=== PATIENT | female | born 1955 | race African-American/Black ===

== ENCOUNTER 2017-02-11 12:11 | Day surgery (SDC) | payer OTHER ==
[2017-02-10 16:34] VITALS: BMI 27.5
[~2017-02-11 12:11] MED LIST: BETAMET ACET/BETAMET NA PH 30 MG/5 ML VIAL IJ ONE; BUPIVACAINE HCL/PF 0.25% (2.5MG/ML) 10 ML VIAL IJ ONE; IOHEXOL 180 MG/1 ML ML IJ ONE; LIDOCAINE HCL 1%, 10 MG/ML (20ML VIAL) IJ ONE
[2017-02-11 13:49] VITALS: TEMP 98.2
[2017-02-11] MEDS ORDERED: BETAMET ACET/BETAMET NA PH 30 MG/5 ML VIAL ONE (15:59)
[2017-02-11] MEDS ORDERED: LIDOCAINE HCL 1%, 10 MG/ML (20ML VIAL) ONE (15:59)
[2017-02-11] MEDS ORDERED: BUPIVACAINE HCL/PF 0.25% (2.5MG/ML) 10 ML VIAL ONE (15:59)
[2017-02-11] MEDS ORDERED: LIDOCAINE HCL 1%, 10 MG/ML (20ML VIAL) IJ ONE (16:20)
[2017-02-11] MEDS ORDERED: IOHEXOL 180 MG/1 ML ML IJ ONE (16:22)
[2017-02-11] MEDS ORDERED: BETAMET ACET/BETAMET NA PH 30 MG/5 ML VIAL IJ ONE (16:23)
[2017-02-11] MEDS ORDERED: BUPIVACAINE HCL/PF 0.25% (2.5MG/ML) 10 ML VIAL IJ ONE (16:23)
[2017-02-11] MEDS ORDERED: ACETAMINOPHEN 500 MG TABLET (FP) PO PRN (16:35)
[2017-02-11] MEDS ORDERED: ONDANSETRON 4 MG/2 ML VIAL IVPUSH PRN (16:35)
[2017-02-11] MEDS ORDERED: SODIUM CHLORIDE 1,000 ML IV SCH (16:45)
[2017-02-11 19:55] VITALS: BP 146/81; PULSE 63
--- NOTE | 2017-02-12 06:47 | OP ---
DATE OF OPERATION: 02/11/2017 PERFORMING PHYSICIAN: Rocco Wong MD PREOPERATIVE DIAGNOSIS: Low back pain with lumbar radiculopathy on the left side. POSTOPERATIVE DIAGNOSIS: Low back pain with lumbar radiculopathy on the left side. PROCEDURE: Lumbar epidural steroid injection, interlaminar at the L4-L5 level. ANESTHESIA: Local and MAC ANESTHESIOLOGIST: Dr. Ortiz DESCRIPTION OF PROCEDURE: I discussed with her in detail about risks, benefits, and alternative details, not only limited to infection, fever, headache, numbness, tingling, weakness, injury to nerves, blood vessels, and muscles. Patient understood, agreed, and signed the written consent. The patient was placed in the prone position with the abdomen and legs supported with pillows. The lumbosacral area was prepped and draped with Betadine x3 and alcohol x3. Under fluoroscopy, left L4-L5 area was identified. At this level, 3 mL of 1% lidocaine was infiltrated into the skin and subcutaneous tissues. A 20-gauge 3.5-inch Tuohy needle was used to expose the epidural space by a loss of resistance technique with intermittent fluoroscopy. After negative aspiration, 2 mL of Omnipaque 180 was injected to see the flow of the dye into the epidural space both cranially and caudally. There was no vascular uptake or spinal CSF spread. Celestone 2 mL mixed with 3 mL of 0.25% preservative-free Marcaine mL was injected into the epidural space after negative aspiration. While needle was withdrawn, 1% of lidocaine was infiltrated. Bleeding was checked. Betadine was wiped off. A sterile bandage was placed. Patient tolerated the procedure well. There was no immediate complication. Patient was transferred to recovery room and observed for some time. Patient was discharged. Patient was advised to apply ice. If any problem, call me or report to ER. Patient was discharged as per criteria. Patient was given the followup appointment. ROCCO WONG M.D. JUNIOR/[id number]
== END 2017-02-11 17:30 | disposition home or self-care (01) ==
LOC: JASU-SURG 12:11
PROVIDERS: ATTEND Physical Medicine & Rehabilitation
PROC: 3E0S33Z Introduction of Anti-inflammatory into Epidural Space, Percutaneous Approach (ICD-10-PCS; 2017-02-11)
PROC: B01BYZZ Fluoroscopy of Spinal Cord using Other Contrast (ICD-10-PCS; 2017-02-11)
PROC: 3E0S3BZ Introduction of Anesthetic Agent into Epidural Space, Percutaneous Approach (ICD-10-PCS; principal; 2017-02-11 15:00)
DX: M54.16 Radiculopathy, lumbar region (principal); M54.5 Low back pain
CPT/HCPCS: 76000-TC

== ENCOUNTER 2017-04-22 12:40 | Emergency (ER) | payer OTHER ==
[2017-04-22 13:01] VITALS: TEMP 98.2; BMI 28.1
--- NOTE | 2017-04-22 17:29 | PDOC ---
History of Present Illness - General History Source: Patient Exam Limitations: No Limitations - History of Present Illness Initial Comments: 04/22/17 17:48 The patient is a 60-year-old woman with significant past medical history of diabetes mellitus, hypertension anemia and hepatitis C who presents to the emergency department s/p mechanical fall yesterday. Patient states that she was bending down to retrieve something on an incline tumbled and tripped over falling on her knees and then elbows. She states that she hit the back of her head on the car. She denies any LOC, dizziness or lightheadedness. She now reports bilateral knee pain and swelling as well as bilateral elbow pain left worse than the right. She denies , headache,dizziness, lightheadedness, fever, chills, back pain. Allergies: None Known Past Surgical History: L2-L3 surgery. Hernia repair. Social History: Former smoker. She denies ETOH and recreational drug use. Primary Care Physician: Dr. 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) Disorders: No HTN: Yes Hypercholesterolemia: No Liver Disease: Yes (hep c, HEP C CLEARED) Suicide Attempt (Hx): No Seizures: No Thyroid Disease: No - Surgical History Abdominal Surgery: Yes (HERNIA REPAIR) Appendectomy: No Cardiac Surgery: No Cholecystectomy: No Lung Surgery: No Neurologic Surgery: Yes (disc sx ?fusion) Orthopedic Surgery: No - Psycho/Social/Smoking Cessation Hx Anxiety: No Suicidal Ideation: No Smoking Status: Yes Smoking History: Never smoked Have you smoked in the past 12 months: No Number of Cigarettes Smoked Daily: 0 If you are a former smoker, when did you quit?: 40 YRS AGO Hx Alcohol Use: No Drug/Substance Use Hx: No Substance Use Type: None Hx Substance Use Treatment: No <DarrinMaribelrosa Anderson - Last Filed: 04/22/17 19:00> - Past Medical History Allergies/Adverse Reactions: Allergies Allergy/AdvReac Type Severity Reaction Status Date / Time codeine AdvReac Verified 04/22/17 13:01 Home Medications: Ambulatory Orders Metformin HCl [Glucophage Xr] 500 mg PO DAILY 10/07/11 Losartan/Hydrochlorothiazide [Losartan-Hctz 100-25 mg Tab] 1 tab PO DAILY Pantoprazole Sodium [Protonix] 40 mg PO DAILY #30 tablet. 05/08/16 Naproxen Sodium [Aleve] 220 mg PO PRN 02/10/17 Review of Systems - Review of Systems Able to Perform ROS?: Yes Comments:: 04/22/17 17:48 CONSTITUTIONAL: Absent: fever, chills, diaphoresis, generalized weakness, malaise, loss of appetite HEENT: Absent: rhinorrhea, nasal congestion, throat pain, throat swelling, difficulty swallowing, mouth swelling, ear pain, eye pain, visual Changes CARDIOVASCULAR: Absent: chest pain, syncope, palpitations, irregular heart rate, lightheadedness , peripheral edema RESPIRATORY: Absent: cough, shortness of breath, dyspnea with exertion, orthopnea, wheezing, stridor, hemoptysis GASTROINTESTINAL: Absent: abdominal pain, abdominal distension, nausea, vomiting, diarrhea, constipation, melena, hematochezia GENITOURINARY: Absent: dysuria, frequency, urgency, hesitancy, hematuria, flank pain, genital pain MUSCULOSKELETAL: Present: bilateral knee pain, bilateral elbow pain, back of the head pain. Absent: myalgia, arthralgia, joint swelling SKIN: Present: abrasion to right knee. Absent: rash, itching, pallor HEMATOLOGIC/IMMUNOLOGIC: Absent: easy bleeding, easy bruising, lymphadenopathy, frequent infections ENDOCRINE: Absent: unexplained weight gain, unexplained weight loss, heat intolerance, cold intolerance NEUROLOGIC: Absent: headache, focal weakness or paresthesias, dizziness, unsteady gait, seizure, mental status changes, bladder or bowel incontinence PSYCHIATRIC: Absent: anxiety, depression, suicidal or homicidal ideation, hallucinations. <Yesenia Black - Last Filed: 04/22/17 17:48> *Physical Exam - Vital Signs Last Vital Signs Temp Pulse Resp BP Pulse Ox 98.2 F 81 18 153/82 98 04/22/17 12:59 04/22/17 12:59 04/22/17 12:59 04/22/17 12:59 04/22/17 12:59 - Physical Exam Comments: 04/22/17 17:51 GENERAL: Well developed, well nourished. Awake and alert. No acute distress. HEENT: (+)Tenderness on occiput with small hematoma. Normocephalic. PERRLA, EOMI. No conjunctival pallor. Sclera are non-icteric. Moist mucous membranes. Oropharynx is clear. NECK: Supple. Full ROM. No JVD. Carotid pulses 2+ and symmetric, without bruits. No thyromegaly. No lymphadenopathy. CARDIOVASCULAR: Regular rate and rhythm. No murmurs, rubs, or gallops. Distal pulses are 2+ and symmetric. PULMONARY: No evidence of respiratory distress. Lungs clear to auscultation bilaterally. No wheezing, rales or rhonchi. ABDOMINAL: Soft. Non-tender. Non-distended. No rebound or guarding. No organomegaly. Normoactive bowel sounds. MUSCULOSKELETAL (+)Generalized paraspinal tenderness, No C spine tenderness. Normal range of motion at all joints. No bony deformities. No CVA tenderness. EXTREMITIES: (+)Tenderness to right and left elbow, Left elbow superficial abrasion, Patellar ballottement and swelling Right knee abrasion 2.5cm. No cyanosis. No clubbing. No calf tenderness. SKIN: Warm and dry. Normal capillary refill. No rashes. No jaundice. NEUROLOGICAL: Alert, awake, appropriate. Cranial nerves 2-12 intact. PSYCHIATRIC: Cooperative. Good eye contact. Appropriate mood and affect. <Yesenia Black - Last Filed: 04/22/17 17:48> - Vital Signs Last Vital Signs Temp Pulse Resp BP Pulse Ox 98.2 F 81 18 153/82 98 04/22/17 12:59 04/22/17 12:59 04/22/17 12:59 04/22/17 12:59 04/22/17 12:59 <Maribel Clifford - Last Filed: 04/22/17 19:00> *DC/Admit/Observation/Transfer - Attestations Scribe Attestion: 04/22/17 17:54 Documentation prepared by KARLIE Roy, acting as paramedical aide for Maribel Clifford MD. <Yesenia Black - Last Filed: 04/22/17 17:48> <Maribel Clifford - Last Filed: 04/22/17 19:00> Diagnosis at time of Disposition: Closed head injury Qualifiers: Encounter type: initial encounter Qualified Code(s): S09.90XA - Unspecified injury of head, initial encounter Abrasion of elbow Qualifiers: Encounter type: initial encounter Laterality: left Qualified Code(s): S50.312A - Abrasion of left elbow, initial encounter Abrasion of knee Qualifiers: Encounter type: initial encounter Laterality: right Qualified Code(s): S80.211A - Abrasion, right knee, initial encounter - Discharge Dispostion Disposition: HOME Condition at time of disposition: Stable - Referrals Referrals: Sy Gabriel MD [Primary Care Provider] - - Patient Instructions Printed Discharge Instructions: DI for Closed Head Injury Additional Instructions: please place bacitracin on your abrasions take aleve or tylenol for pain
[2017-04-22] MEDS ORDERED: NAPROXEN 500 MG TABLET (FP) ONE (18:49)
[2017-04-22 22:00] VITALS: BP 140/80; PULSE 76
== END 2017-04-22 19:10 | disposition home or self-care (01) ==
LOC: JER 12:40
DX: M25.529 Pain in unspecified elbow (principal); S09.90XA Unspecified injury of head, initial encounter; S50.312A Abrasion of left elbow, initial encounter; S80.211A Abrasion, right knee, initial encounter; W18.39XA Other fall on same level, initial encounter; Y93.89 Activity, other specified; Y92.9 Unspecified place or not applicable; I10 Essential (primary) hypertension; B19.20 Unspecified viral hepatitis C without hepatic coma; E11.9 Type 2 diabetes mellitus without complications
CPT/HCPCS: 70450-TC; 72125-TC; 73070-TC-LT; 73562-TC-LT; 73562-TC-RT; 99282-25

== ENCOUNTER 2017-04-26 15:09 | Emergency (ER) | payer OTHER ==
[2017-04-26 15:21] VITALS: BP 141/77; PULSE 78; TEMP 99; BMI 27.4
--- NOTE | 2017-04-26 15:41 | PDOC ---
History of Present Illness - General Chief Complaint: Injury Stated Complaint: FALL / PAIN Time Seen by Provider: 04/26/17 15:40 History Source: Patient Exam Limitations: No Limitations - History of Present Illness Initial Comments: 04/26/17 19:36 Patient came for evaluation of persistent aches and pains. what became unstable on Friday night, fell and was seen and treated here for multiple contusions with negative x-ray reports on Friday afternoon. Patient was offered Percocet but refused as she did not want any stronger pain medication. States has been using Aleve but has continued pain and concerned about bruising extending down from her knees to ankles. Patient denies any recurrent headache, dizziness, instability but is tearful with complaints of multiple generalized aches and pains. "Why are my veins be and so dark" 04/26/17 19:41 04/26/17 19:41 Occurred: reports: last week Severity: reports: mild, moderate Pain Location: reports: lower extremity, upper extremity (left elbow) Modifying Factors: improves with: cold therapy, pain medication (aleve) Loss of Consciousness: no loss of consciousness Associated Symptoms (Fall): muscle spasms, neck pain, trouble walking Past History - Travel Traveled outside of the country in the last 30 days: No Close contact w/someone who was outside of country & ill: No - Past Medical History Allergies/Adverse Reactions: Allergies Allergy/AdvReac Type Severity Reaction Status Date / Time codeine AdvReac Nausea Verified 04/26/17 15:16 Home Medications: Ambulatory Orders Metformin HCl [Glucophage Xr] 500 mg PO BID 10/07/11 Losartan/Hydrochlorothiazide [Losartan-Hctz 100-25 mg Tab] 1 tab PO DAILY Pantoprazole Sodium [Protonix] 40 mg PO DAILY #30 tablet. 05/08/16 Naproxen [Naprosyn -] 500 mg PO BID #14 tablet 04/26/17 Anemia: Yes Asthma: No Cancer: No Cardiac Disorders: No CVA: No COPD: No CHF: No Dementia: No Diabetes: Yes GI Disorders: (enlarged spleen) Disorders: No HTN: Yes Hypercholesterolemia: No Liver Disease: Yes (hep c, HEP C CLEARED) Suicide Attempt (Hx): No Seizures: No Thyroid Disease: No - Surgical History Abdominal Surgery: Yes (HERNIA REPAIR) Appendectomy: No Cardiac Surgery: No Cholecystectomy: No Lung Surgery: No Neurologic Surgery: Yes (disc sx ?fusion) Orthopedic Surgery: No - Psycho/Social/Smoking Cessation Hx Anxiety: No Suicidal Ideation: No Smoking Status: Yes Smoking History: Former smoker Have you smoked in the past 12 months: No Number of Cigarettes Smoked Daily: 0 If you are a former smoker, when did you quit?: 40 YRS AGO Information on smoking cessation initiated: No Hx Alcohol Use: No Drug/Substance Use Hx: No Substance Use Type: None Hx Substance Use Treatment: No Review of Systems - Review of Systems Able to Perform ROS?: Yes Is the patient limited Sudanese proficient: Yes Constitutional: Yes: Symptoms Reported, See HPI, Malaise HEENTM: Yes: See HPI. No: Symptoms Reported Respiratory: Yes: See HPI. No: Symptoms reported ABD/GI: No: Symptoms Reported Musculoskeletal: Yes: Symptoms Reported, See HPI, Joint Pain, Joint Swelling ( bilateral knees) Integumentary: Yes: Symptoms Reported, See HPI, Bruising, Lesions Neurological: Yes: See HPI. No: Symptoms reported, Headache, Numbness All Other Systems: Reviewed and Negative *Physical Exam - Vital Signs Last Vital Signs Temp Pulse Resp BP Pulse Ox 99 F 78 18 141/77 98 04/26/17 15:16 04/26/17 15:16 04/26/17 15:16 04/26/17 15:16 04/26/17 15:16 - Physical Exam General Appearance: Yes: Nourished, Appropriately Dressed, Apparent Distress HEENT: positive: NOHEMI, Normal ENT Inspection, TMs Normal, Pharynx Normal Neck: positive: Supple. negative: Tender Respiratory/Chest: positive: Lungs Clear Cardiovascular: positive: Regular Rhythm Musculoskeletal: positive: Normal Inspection. negative: Vertebral Tenderness Integumentary: positive: Warm, Swelling, Ecchymosis, Bruising (bilateral swelling and ecchymoses to knees, no crepitus or step-offs, but pain extends inferiorly with some bruising consistent with gravity. Left elbow with superficial abrasion is healing well with mild ecchymoses and swelling at the olecranon. Has full range of motion at elbow joint, able to supinate and pronate without tenderness. No evidence of cellulitis. With healing abrasion without evidence of cellulitis, range of motion is intact but has pain and superior tibial area without crepitus or step-offs. 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 No evidence of reinjury, encourage patient to continue ice, rest and sent prescription for Naprosyn 500 mg and will follow up with PMD *DC/Admit/Observation/Transfer Diagnosis at time of Disposition: Multiple contusions - Discharge Dispostion Disposition: HOME Condition at time of disposition: Stable Admit: No - Prescriptions Prescriptions: Naproxen [Naprosyn -] 500 mg PO BID #14 tablet - Referrals Referrals: Sy Gabriel MD [Primary Care Provider] - - Patient Instructions Printed Discharge Instructions: DI for Contusion Additional Instructions: Rest, ice to area on and off for 15 minutes 4-6 times a day Avoid heavy lifting or exercise until pain and swelling is resolved or until further directed Keep area highly elevated to reduce swelling Use splints/Ilan wrap as directed Followup with orthopedist in one to 2 days if not improving, if significantly improved may wait one week for followup with orthopedist May use ibuprofen 2-200 mg tablets every 6 hours as needed for pain
[2017-04-26] MEDS ORDERED: KETOROLAC TROMETHAMINE 60 MG/2 ML VIAL ONE (15:54)
[2017-04-26] MEDS ORDERED: NAPROXEN 500 MG TABLET (FP) PO ONE (16:04)
[2017-04-26] MEDS ORDERED: BACITRACIN 15 GM TUBE TOPICAL OINTMENT ONE (16:10)
== END 2017-04-26 16:25 | disposition home or self-care (01) ==
LOC: JERFT 15:09
DX: S80.02XD Contusion of left knee, subsequent encounter (principal); S80.01XD Contusion of right knee, subsequent encounter; S50.02XD Contusion of left elbow, subsequent encounter; W18.39XD Other fall on same level, subsequent encounter; I10 Essential (primary) hypertension; E11.9 Type 2 diabetes mellitus without complications; Z79.84 Long term (current) use of oral hypoglycemic drugs; B19.20 Unspecified viral hepatitis C without hepatic coma; R16.1 Splenomegaly, not elsewhere classified; Z87.891 Personal history of nicotine dependence
CPT/HCPCS: 99281-25

== ENCOUNTER 2017-09-20 10:25 | Emergency (ER) | payer OTHER ==
[2017-09-20 10:35] VITALS: BP 117/75; PULSE 82; TEMP 99.1; BMI 28.7
[2017-09-20] MEDS ORDERED: ALBUTEROL SO4 2.5/IPRATROPIUM 0.5 INH SOL 3 ML VIAL.NEB. NEB ONE (11:06)
--- NOTE | 2017-09-20 11:23 | PDOC ---
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 Patient was seen at her pain management doctor 4 days ago patient reports had a "terrible cold" woke up the next day with similar symptoms. Allergies: No known allergies Medications: [See medication list] Family History: Non-contributory Social History: Denies smoking, alcohol use, or IVDU Review of Systems GENERAL/CONSTITUTIONAL: [Fever and chills. Generalized aches and pains. No weakness. No weight change.] HEAD, EYES, EARS, NOSE AND THROAT: [No change in vision. No ear pain or discharge. No sore throat. ] CARDIOVASCULAR: [No chest pain or shortness of breath.] RESPIRATORY: [No cough, wheezing, or hemoptysis.] GASTROINTESTINAL: [No nausea, vomiting, diarrhea or constipation. No rectal bleeding.] GENITOURINARY: [No dysuria, frequency, or change in urination.] MUSCULOSKELETAL: [No joint or muscle swelling or pain. No neck or back pain.] SKIN AND BREASTS: [No rash or easy bruising.] NEUROLOGIC: [No headache, vertigo, loss of consciousness, or loss of sensation.] PSYCHIATRIC: [No depression or anxiety.] ENDOCRINE: [No increased thirst. No abnormal weight change.] HEMATOLOGIC/LYMPHATIC: [No anemia, easy bleeding, or history of blood clots.] ALLERGIC/IMMUNOLOGIC: [No hives or skin allergy. No latex allergy.] Physical Exam: GENERAL: [The patient is awake, alert, and fully oriented, in no acute distress. ] EYES: [Pupils equal, round and reactive to light, extraocular movements intact, sclera anicteric, conjunctiva clear.] ENT: [Ears normal, nares patent, oropharynx clear without exudates. Moist mucous membranes. No uvula deviation] NECK: [Normal range of motion, supple without lymphadenopathy, JVD, or masses.] LUNGS: [Expiratory rhonchi and wheezes, no crackles.] HEART: [Regular rate and rhythm, normal S1 and S2 without murmur, rub or gallop. ] ABDOMEN: [Soft, nontender, normoactive bowel sounds. No guarding, no rebound. No masses. No bruising or abrasions] MUSCULOSKELETAL: [Normal range of motion, no edema. No clubbing or cyanosis. No cords, erythema, or tenderness. No CVA Tenderness with fist.] NEUROLOGICAL: [Cranial nerves II through XII grossly intact. Normal speech, normal gait.] SKIN: [Warm, Dry, normal turgor, no rashes or lesions noted.] 09/20/17 13:31 Past History - Past Medical History Allergies/Adverse Reactions: Allergies Allergy/AdvReac Type Severity Reaction Status Date / Time codeine AdvReac Nausea Verified 09/20/17 10:27 Home Medications: Ambulatory Orders Metformin HCl [Glucophage Xr] 500 mg PO BID 10/07/11 Losartan/Hydrochlorothiazide [Losartan-Hctz 100-25 mg Tab] 1 tab PO DAILY Azithromycin [Zithromax 250mg Tablets -] 250 mg PO UTDICT #6 tab 09/20/17 Oseltamivir Phosphate [Tamiflu -] 75 mg PO BID #10 capsule 09/20/17 Anemia: Yes Asthma: No Cancer: No Cardiac Disorders: No CVA: No COPD: No CHF: No DVT: No Dementia: No Diabetes: Yes GI Disorders: (enlarged spleen) Disorders: No HTN: Yes Hypercholesterolemia: No Liver Disease: Yes (hep c, HEP C CLEARED) Seizures: No Thyroid Disease: No - Surgical History Abdominal Surgery: Yes (HERNIA REPAIR) Appendectomy: No Cardiac Surgery: No Cholecystectomy: No Lung Surgery: No Neurologic Surgery: Yes (disc sx ?fusion) Orthopedic Surgery: No - Immunization History Immunization Up to Date: Yes - Suicide/Smoking/Psychosocial Hx Smoking Status: Yes Smoking History: Never smoked Have you smoked in the past 12 months: No Number of Cigarettes Smoked Daily: 0 If you are a former smoker, when did you quit?: 40 YRS AGO Information on smoking cessation initiated: No Hx Alcohol Use: No Drug/Substance Use Hx: No Substance Use Type: None Hx Substance Use Treatment: No *Physical Exam - Vital Signs Last Vital Signs Temp Pulse Resp BP Pulse Ox 99.1 F 82 17 117/75 100 09/20/17 10:27 09/20/17 10:27 09/20/17 10:27 09/20/17 10:27 09/20/17 10:27 ED Treatment Course - Medications Given in the ED: ED Medications Discontinued Medications Generic Name Dose Route Start Last Admin Trade Name Andrew PRN Reason Stop Dose Admin Albuterol/Ipratropium 1 amp 09/20/17 11:06 09/20/17 11:16 Duoneb - NEB 09/20/17 11:07 1 amp ONCE ONE Administration Medical Decision Making - Medical Decision Making 09/20/17 11:23 A/P: She here with generalized aches and pains fever, sore throat, cough which is productive. Influenza and rapid strep sent Combivent given. 09/20/17 13:32 Patient is nontoxic appearing, no respiratory distress, s/p neb, the patient is sating 98%on room air. Patient is influenza A positive we'll discharge patient on Tamiflu and azithromycin, follow-up with PMD. I discussed the physical exam findings, ancillary test results and final diagnoses with the patient. I answered all of the patient's questions. The patient was satisfied with the care received and felt comfortable with the discharge plan and treatment plan. The patient will call to arrange follow-up and will return to the Emergency Department with any new, persistent or worsening symptoms. *DC/Admit/Observation/Transfer Diagnosis at time of Disposition: Influenza A - Discharge Dispostion Disposition: HOME Condition at time of disposition: Good Admit: No - Prescriptions Prescriptions: Azithromycin [Zithromax 250mg Tablets -] 250 mg PO UTDICT #6 tab Oseltamivir Phosphate [Tamiflu -] 75 mg PO BID #10 capsule - Referrals Referrals: Sy Gabriel MD [Primary Care Provider] - - Patient Instructions Printed Discharge Instructions: Influenza (Alternative Therapy), Influenza Additional Instructions: You have been diagnosed with influenza a. Please take the medication as directed. You are contagious. Please attempt to avoid contact of multiple individuals as this will cause the infection to spread. Return to emergency room if shortness of breath, wheezing, fever greater than 101, chest pain, or fainting occurs. - Post Discharge Activity Forms/Work/School Notes: Back to Work
== END 2017-09-20 12:37 | disposition home or self-care (01) ==
LOC: JER 10:25 → JERFT 10:25
PROC: 3E0F7GC Introduction of Other Therapeutic Substance into Respiratory Tract, Via Natural or Artificial Opening (ICD-10-PCS; principal; 2017-09-20)
DX: J09.X2 Influenza due to identified novel influenza A virus with other respiratory manifestations (principal); I10 Essential (primary) hypertension; E11.9 Type 2 diabetes mellitus without complications; Z79.84 Long term (current) use of oral hypoglycemic drugs; R16.1 Splenomegaly, not elsewhere classified; Z86.19 Personal history of other infectious and parasitic diseases
CPT/HCPCS: 87070; 87430; 87804; 99281-25

== ENCOUNTER 2017-10-07 08:37 | Day surgery (SDC) | payer OTHER ==
[2017-10-06 17:05] VITALS: BMI 27.5
[2017-10-07 08:55] VITALS: TEMP 98.1
[2017-10-07] MEDS ORDERED: PROPOFOL 20 ML ONE (11:30)
[2017-10-07] MEDS ORDERED: ceFAZolin SODIUM 1 GM VIAL IVPB ONE (11:33)
[2017-10-07] MEDS ORDERED: ceFAZolin SODIUM 1 GM VIAL ONE (11:33)
[2017-10-07] MEDS ORDERED: LIDOCAINE HCL 1%, 10 MG/ML (20ML VIAL) NR ONE (11:37)
[2017-10-07] MEDS ORDERED: BUPIVACAINE HCL/PF 0.25% (2.5MG/ML) 10 ML VIAL IJ ONE (11:39)
[2017-10-07] MEDS ORDERED: IOHEXOL 180 MG/1 ML ML IJ ONE (11:39)
[2017-10-07] MEDS ORDERED: BUPIVACAINE HCL/PF 0.5% (5MG/ML) 10 ML VIAL IJ ONE (11:39)
[2017-10-07] MEDS ORDERED: BETAMET ACET/BETAMET NA PH 30 MG/5 ML VIAL IM ONE (11:41)
--- NOTE | 2017-10-07 13:22 | PROC ---
Procedure Note Procedure: Date of service: 10/07/2017 Preoperative Diagnosis: Low back pain and lumbar radiculopathy on left Postoperative Diagnosis: Same Procedure Performed: Lumbar Epidural Steroid Injection (LESI) on Left L4-5 with dye under Fluoroscopy Anesthesia: Local / MAC Anesthesiologist: Procedure: I discussed with the patient in detail about the risks, benefits, and alternatives to treatment not only limited to infection, headache, numbness , weakness, and injury to nerves, blood vessels and muscles. The patient understood, agreed and signed the written consent. The patient was placed in the prone position with the head, abdomen and legs supported with the pillows. The lumbosacral area was prepped and draped with Betadine times three in a sterile fashion. Lumbar vertebrae were identified under the C-arm. At L4-5 level on the Left side, 3 ml of 1 % Lidocaine was infiltrated into the skin and subcutaneous tissue. A 3 inch, #20 gauge Tuohy needle was advanced to the epidural space with loss of resistance technique under fluoroscopic guidance. Aspiration was negative for cerebrospinal fluid and blood. 2ml of Omnipaque ( radio-opaque dye) was injected to confirm the tip of the needle into epidural space and spread of dye. There was no CSF or vascular spread. The spread of dye was noted cranially and caudally on epidurogram. Aspiration was done again which was negative. A solution of 2.5 ml of Celestone 2.5 ml of 0.25% Marcaine and a total of 5 ml was injected slowly. While Tuohy needle was withdrawn 2.0 ml of 1 % Lidocaine was infiltrated. Bleeding was checked. Betadine was wiped off. A sterile bandage was placed. The patient tolerated the procedure well. There were no immediate complications. The patient was transferred to the recovery room. The patient was observed for some time and discharged as per ASU criteria. The patient was told to apply ice at the injection site. Follow up appointment was given and also call my office at [phone]. If there is any problem, call my office or report to Emergency Room. Elliott Wong M.D.
[2017-10-07 14:17] VITALS: BP 139/69; PULSE 60
[2017-10-07] MEDS ORDERED: LIDOCAINE HCL 1%, 10 MG/ML (20ML VIAL) ONE (14:23)
[2017-10-07] MEDS ORDERED: BUPIVACAINE HCL/PF 0.25% (2.5MG/ML) 10 ML VIAL ONE (14:23)
[2017-10-07] MEDS ORDERED: BETAMET ACET/BETAMET NA PH 30 MG/5 ML VIAL ONE (14:23)
== END 2017-10-07 14:35 | disposition home or self-care (01) ==
LOC: JASU-SURG 08:37
PROVIDERS: ATTEND Physical Medicine & Rehabilitation
PROC: 3E0R33Z Introduction of Anti-inflammatory into Spinal Canal, Percutaneous Approach (ICD-10-PCS; 2017-10-07)
PROC: B01BYZZ Fluoroscopy of Spinal Cord using Other Contrast (ICD-10-PCS; 2017-10-07)
PROC: 3E0R3BZ Introduction of Anesthetic Agent into Spinal Canal, Percutaneous Approach (ICD-10-PCS; principal; 2017-10-07 11:00)
DX: M54.16 Radiculopathy, lumbar region (principal); M54.5 Low back pain
CPT/HCPCS: 76000-TC-FY; 82962

== ENCOUNTER 2017-11-25 08:12 | Day surgery (SDC) | payer OTHER ==
[2017-11-21 13:26] VITALS: BMI 28.8
[2017-11-25 08:37] VITALS: TEMP 97.8
[2017-11-25] MEDS ORDERED: BUPIVACAINE HCL/PF 0.25% (2.5MG/ML) 10 ML VIAL ONE (12:56)
[2017-11-25] MEDS ORDERED: BETAMET ACET/BETAMET NA PH 30 MG/5 ML VIAL ONE (12:56)
[2017-11-25] MEDS ORDERED: LIDOCAINE HCL 1%, 10 MG/ML (20ML VIAL) ONE (12:56)
[2017-11-25] MEDS ORDERED: IOHEXOL 180 MG/1 ML ML IT ONE ×2 (13:06)
[2017-11-25] MEDS ORDERED: BUPIVACAINE HCL/PF 0.5% (5MG/ML) 10 ML VIAL IJ ONE (13:06)
[2017-11-25] MEDS ORDERED: LIDOCAINE HCL 1%, 10 MG/ML (20ML VIAL) SNB ONE ×2 (13:06)
[2017-11-25] MEDS ORDERED: BUPIVACAINE HCL/PF 0.25% (2.5MG/ML) 10 ML VIAL STI ONE (13:06)
[2017-11-25] MEDS ORDERED: PROPOFOL 20 ML ONE (13:11)
[2017-11-25] MEDS ORDERED: LIDOCAINE HCL/PF 2% SDV 5ML VIAL ONE (13:11)
[2017-11-25] MEDS ORDERED: MIDAZOLAM HCL 2 MG/2 ML SINGLE DOSE VIAL ONE (13:12)
[2017-11-25] MEDS ORDERED: BUPIVACAINE HCL/PF 0.5% (5MG/ML) 10 ML VIAL ONE (13:36)
[2017-11-25 14:55] VITALS: PULSE 70
[2017-11-25 15:23] VITALS: BP 148/73
== END 2017-11-25 15:00 | disposition home or self-care (01) ==
LOC: JASU-SURG 08:12
PROVIDERS: ATTEND Physical Medicine & Rehabilitation
PROC: 3E0R33Z Introduction of Anti-inflammatory into Spinal Canal, Percutaneous Approach (ICD-10-PCS; 2017-11-25)
PROC: 3E0R3BZ Introduction of Anesthetic Agent into Spinal Canal, Percutaneous Approach (ICD-10-PCS; principal; 2017-11-25 10:30)
DX: M54.16 Radiculopathy, lumbar region (principal); M54.5 Low back pain
CPT/HCPCS: 76000-TC-FY; 82962

== ENCOUNTER 2018-07-14 08:24 | Day surgery (SDC) | payer OTHER ==
[2018-07-13 10:49] VITALS: BMI 32.5
[2018-07-14 08:44] VITALS: TEMP 97.9
[2018-07-14] MEDS ORDERED: BETAMET ACET/BETAMET NA PH 30 MG/5 ML VIAL ONE (09:38)
[2018-07-14] MEDS ORDERED: BUPIVACAINE HCL/PF 0.25% (2.5MG/ML) 10 ML VIAL ONE (09:39)
[2018-07-14] MEDS ORDERED: PROPOFOL 20 ML ONE (10:05)
[2018-07-14] MEDS ORDERED: SUCCINYLCHOLINE CHLORIDE 200 MG/10 ML VIAL ONE (10:05)
[2018-07-14] MEDS ORDERED: LIDOCAINE HCL 1%, 10 MG/ML (50 mL VIAL) IJ ONE (10:18)
[2018-07-14] MEDS ORDERED: BUPIVACAINE HCL/PF 0.25% (2.5MG/ML) 10 ML VIAL IJ ONE (10:19)
[2018-07-14] MEDS ORDERED: IOHEXOL 180 MG/1 ML ML IJ ONE (10:19)
[2018-07-14] MEDS ORDERED: BETAMET ACET/BETAMET NA PH 30 MG/5 ML VIAL IJ ONE (10:19)
[2018-07-14 12:16] VITALS: BP 135/75; PULSE 68
== END 2018-07-14 12:17 | disposition home or self-care (01) ==
LOC: JASU-SURG 08:24
PROVIDERS: ATTEND Physical Medicine & Rehabilitation
PROC: 3E0R33Z Introduction of Anti-inflammatory into Spinal Canal, Percutaneous Approach (ICD-10-PCS; 2018-07-14)
PROC: 3E0R3BZ Introduction of Anesthetic Agent into Spinal Canal, Percutaneous Approach (ICD-10-PCS; principal; 2018-07-14 09:30)
DX: M54.16 Radiculopathy, lumbar region (principal); M54.5 Low back pain
CPT/HCPCS: 76000-TC-FY; 82962

== ENCOUNTER 2019-01-11 07:51 | Observation (INO) | payer OTHER ==
--- NOTE | 2019-01-11 08:04 | PDOC ---
History of Present Illness - General Chief Complaint: Lightheaded Stated Complaint: LEFT SHOULDER BRUISE Time Seen by Provider: 01/11/19 08:04 - History of Present Illness Initial Comments: 63 yo F with PMH of DM, HTN, chronic low back pain managed by painter barrel, HCV s/p treatment, ?anemia s/p splenectomy presenting with left shoulder and hip pain. Patient states she suffered an unwitnessed wall yesterday. Around 4pm, she was in the kitchen and believes she stumbled and fell on her left side. Patient reports lightheadedness before the fall. After hitting the ground, she picked herself up and went about her day, but felt severe pain in the areas of impact. Patient believes she did not hit her head and did not suffer loss of consciousness. No nausea or vomiting. Patient took two tablets of tylenol with no relief of her pain. She work up this morning with 10/10 pain ("going on 11") which worsens anytime she moves her left side. Patient states she has been feeling "dizzy" and "lethargic" for the past month, such that she was evaluated by an urgent care center on Friday. Lab work was performed and the patient was told to go to the hospital if she was not feeling better. Upon review of symptoms, patient also endorses shortness of breath and dyspnea on exertion for the past two months. While she used to be able to walk very far, she can only walk for ten minutes without feeling short-winded. Has had an intermittent cough productive of white phlegm. Denies chest pain. No hemoptysis, no recent surgical history, no recent immobilization, no hormone use , no history of DVT or PE. Has never seen a data control clerk supervisor, but reports having an ECHO and a stress test with results that were "normal" performed more than five years ago via her primary care doctor. Endorses chills, but no fever. Upon history-taking from another provider, patient states she believes she lost consciousness as she cannot recall the episode and does not know how she ended up falling. She believes she hit her head as well. PCP: Dr. Gabriel Pain management: Dr. Wong Past History - Past Medical History Allergies/Adverse Reactions: Allergies Allergy/AdvReac Type Severity Reaction Status Date / Time codeine AdvReac Severe Nausea Verified 01/11/19 07:53 Home Medications: Ambulatory Orders Metformin HCl [Glucophage Xr] 500 mg PO BID 10/07/11 Gabapentin 300 mg PO BID 07/14/18 Zolpidem Tartrate [Ambien] 10 mg PO HS PRN 07/14/18 Acetaminophen [Tylenol -] 500 mg PO Q4H PRN 01/11/19 Amlodipine Besylate 5 mg PO DAILY 01/11/19 Ascorbic Acid [Vitamin C] 500 mg PO DAILY 01/11/19 Cefuroxime Axetil [Cefuroxime] 250 mg PO BID 01/11/19 Cetirizine HCl [Wal-Zyr] 10 mg PO DAILY PRN 01/11/19 Ferrous Sulfate 325 mg PO DAILY 01/11/19 Lisinopril/Hydrochlorothiazide [Lisinopril-Hctz 20-25 mg Tab] 1 each PO DAILY Anemia: Yes Asthma: No Cancer: No Cardiac Disorders: No CVA: No COPD: No CHF: No DVT: No Dementia: No Diabetes: Yes GI Disorders: Yes Disorders: No HTN: Yes Hypercholesterolemia: No Liver Disease: Yes (hep c, HEP C CLEARED) Seizures: No Thyroid Disease: No - Surgical History Abdominal Surgery: Yes (HERNIA REPAIR) Appendectomy: No Cardiac Surgery: No Cholecystectomy: No Lung Surgery: No Neurologic Surgery: No Orthopedic Surgery: No - Immunization History Immunization Up to Date: Yes - Suicide/Smoking/Psychosocial Hx Smoking Status: Yes Smoking History: Smoker current status UNK Have you smoked in the past 12 months: No Number of Cigarettes Smoked Daily: 0 If you are a former smoker, when did you quit?: 40 YRS AGO Hx Alcohol Use: Yes (RARELY) Drug/Substance Use Hx: No Substance Use Type: None Hx Substance Use Treatment: No Review of Systems - Review of Systems Comments:: Constitutional: no fever, +chills HEENT: no throat pain, no dysphagia Cardiovascular: no chest pain, no palpitations Respiratory: +cough, +shortness of breath Gastrointestinal: no abdominal pain, no nausea Genitourinary: no dysuria, no frequency Musculoskeletal: +L. shoulder pain, + L. hip pain Skin: no rash, no itching Neurologic: +lightheadedness, + weakness *Physical Exam - Vital Signs Last Vital Signs Temp Pulse Resp BP Pulse Ox 97.7 F 71 16 130/78 100 01/11/19 07:52 01/11/19 07:52 01/11/19 07:52 01/11/19 07:52 01/11/19 07:52 - Physical Exam Comments: General: Awake, alert, and fully oriented, tearful Head: No signs of trauma Eyes: EOMI, sclera anicteric ENT: Dry mucus membranes Neck: Normal ROM, supple Lungs: Lungs clear, Normal breath sounds Cardio: Regular rhythm, S1 and S2 present Abdomen: Soft, nontender Extremities: Pain upon movement of her left shoulder and left hip- no crepitus or deformities noted, Hematoma noted below left hip, Normal range of motion, Distal pulses present, Equal strength and sensation when comparing right to left , No calf tenderness, No BLE edema SKIN: Warm, Dry, normal turgor Neurologic: Cranial nerves II through XII intact. Normal speech, sensation, strength, coordination. Deferred gait exam due to pain. ED Treatment Course - LABORATORY CBC & Chemistry Diagram: 01/11/19 10:00 01/11/19 13:55 Medical Decision Making - Medical Decision Making 63 yo F with PMH of DM, HTN, chronic low back pain managed by painter barrel, HCV s/p treatment, ?anemia s/p splenectomy presenting with left shoulder and hip pain. DDX including but not limited to mechanical fall, electrolyte abnormality, anemia, pre-syncope/syncope: vasovagal syncope, cardiogenic syncope, metabolic syncope, neurogenic syncope, postural syncope, polypharmacy EKG, Labs, CXR Flexeril, Lidocaine patch 01/11/19 08:04 Upon history-taking from another provider, patient states she believes she lost consciousness as she cannot recall the episode and does not know how she ended up falling. She believes she hit her head as well. -Head CT ordered 500cc normal saline ordered for hydration 01/11/19 10:15 EKG: rate 76, Qtc 486, NSR 01/11/19 10:36 CBC WBC 7.9 K/mm3 (4.0-10.0) 01/11/19 10:00 RBC 3.22 M/mm3 (3.60-5.2) L 01/11/19 10:00 Hgb 9.8 GM/dL (10.7-15.3) L 01/11/19 10:00 Hct 29.4 % (32.4-45.2) L 01/11/19 10:00 MCV 91.1 fl (80-96) 01/11/19 10:00 MCH 30.4 pg (25.7-33.7) D 01/11/19 10:00 MCHC 33.4 g/dl (32.0-36.0) 01/11/19 10:00 RDW 16.5 % (11.6-15.6) H 01/11/19 10:00 Plt Count 604 K/MM3 (134-434) H D 01/11/19 10:00 MPV 7.8 fl (7.5-11.1) D 01/11/19 10:00 Absolute Neuts (auto) 4.3 K/mm3 (1.5-8.0) 01/11/19 10:00 Neutrophils % 54.5 % (42.8-82.8) D 01/11/19 10:00 Lymphocytes % 26.6 % (8-40) D 01/11/19 10:00 Monocytes % 13.6 % (3.8-10.2) H 01/11/19 10:00 Eosinophils % 3.4 % (0-4.5) D 01/11/19 10:00 Basophils % 1.9 % (0-2.0) D 01/11/19 10:00 Nucleated RBC % 0 % (0-0) 01/11/19 10:00 Anemia, hgb=9.8 No leukocytosis CMP Sodium 138 mmol/L (136-145) 01/11/19 10:00 Potassium 5.8 mmol/L (3.5-5.1) H 01/11/19 10:00 Chloride 105 mmol/L (98-107) 01/11/19 10:00 Carbon Dioxide 27 mmol/L (21-32) 01/11/19 10:00 Anion Gap 6 MMOL/L (8-16) L 01/11/19 10:00 BUN 22 mg/dL (7-18) H 01/11/19 10:00 Creatinine 1.3 mg/dL (0.55-1.3) 01/11/19 10:00 Est GFR (CKD-EPI)AfAm 49.86 01/11/19 10:00 Est GFR (CKD-EPI)NonAf 43.02 01/11/19 10:00 Random Glucose 105 mg/dL (74-106) 01/11/19 10:00 Calcium 9.0 mg/dL (8.5-10.1) 01/11/19 10:00 Total Bilirubin 0.6 mg/dL (0.2-1) 01/11/19 10:00 AST 64 U/L (15-37) H 01/11/19 10:00 ALT 35 U/L (13-61) 01/11/19 10:00 Alkaline Phosphatase 332 U/L (45-117) H 01/11/19 10:00 Troponin I < 0.02 ng/ml (0.00-0.05) 01/11/19 10:00 B-Natriuretic Peptide 103.0 pg/ml (5-125) 01/11/19 10:00 Total Protein 8.7 g/dl (6.4-8.2) H 01/11/19 10:00 Albumin 2.7 g/dl (3.4-5.0) L 01/11/19 10:00 Tpn undetectable BNP nl K elevated however sample is slightly hemolyzed. Will re-draw CT Head: Sequential axial images were obtained from the base of the skull to the vertex. There is no evidence of acute intracranial hemorrhage, mass lesions or infarctions. There is a mild degree of diffuse cerebral atrophy with sulcal widening and ventricular dilatation. There is no evidence of fracture or acute bony pathology. IMPRESSION: No evidence of acute intracranial pathology. CT Cspine: There is no evidence of fracture, subluxation or acute bony abnormalities. Minimal degenerative arthritic changes are noted within the anterior osteophyte at C5-6. The spinal canal is widely patent with no evidence of cord compromise. IMPRESSION: Essentially normal CT scan of the cervical spine with no fracture or acute pathology. 01/11/19 11:[address] Ha who accepted patient for telemetry observation under Dr. Lopez Pending Xrays and BMP 01/11/19 12:10 Repeat K is 3.9 Radiographs without acute pathology per radiology reports *DC/Admit/Observation/Transfer Diagnosis at time of Disposition: Syncope and collapse - Discharge Dispostion Condition at time of disposition: Guarded Decision to Admit order: Yes - Referrals - Patient Instructions - Post Discharge Activity
[2019-01-11] MEDS ORDERED: CYCLOBENZAPRINE HCL 10 MG TABLET (FP) PO ONE (09:02)
[2019-01-11] MEDS ORDERED: LIDOCAINE 5% TOPICAL PATCH TP ONE (09:02)
--- NOTE | 2019-01-11 09:02 | PDOC ---
Attending Attestation - Resident Resident Name: Dexter Oliverth - ED Attending Attestation I have performed the following: I have examined & evaluated the patient, The case was reviewed & discussed with the resident, I agree w/resident's findings & plan, Exceptions are as noted - HPI HPI: 01/11/19 08:57 63yo F hx DM, HTN, chronic back pain, HCV from a blood transfusion s/p treatment presents to the ED with L shoulder pain and L hip pain Pt sustained a fall yesteday. Pt can not recall the circumstances around her fall, states she was feeling lightheaded prior, then realized she was on the ground. +LOC. Unclear head strike. States she was able to get up and felt back to baseline within a few mins. Has never had a syncopal episode before. She decided to "ride it out" and did not come to the hospital until this morning when she realized her L shoulder and L hip were hurting from the fall. Tried tylenol yesterday with no relief. Pt also reports 1 month of weakness and lethargy as well as decreased exercise tolerance. She states she normally has unlimited exercise tolerance but over the last month, she can only walk for 10 mins before she gets winded. Went to [facility] Friday for these sxs, had labs checked which were unrevealing. Denies fevers, chills, headache, focal weakness/numbness, CP, abd pain, LE edema - Physicial Exam PE: 01/11/19 10:30 agree with resident exam - Medical Decision Making 01/11/19 10:33 63yo F presents to the ED with L shoulder and L hip pain after syncopal episode yesterday. Vitals wnl Exam with FROM to L shoulder and L hip, she is able to walk on her hip but reports pain to entire hip Distal extremities WWP with 2+ pulses. Normal strength and sensation to all extremities WIll obtain labs, trauma w/u with CTH, plain films of L hip, shoulder, likely admit tele obs Heart Score/ECG Review #1 01/11/19 10:30 EKG read and interpreted by me: NSR, rate 76, normal axis and intervals. No OSMAN , isolated TWI in lead III
[2019-01-11] MEDS ORDERED: LIDOCAINE 5% TOPICAL PATCH ONE (09:17)
[2019-01-11] MEDS ORDERED: CYCLOBENZAPRINE HCL 10 MG TABLET (FP) ONE ×2 (09:17→15:04)
[2019-01-11] MEDS ORDERED: SODIUM CHLORIDE 500 ML IV STA (10:12)
[2019-01-11 10:38] LABS: BASO % 1.9 % (0-2.0); EOS % 3.4 % (0-4.5); HEMATOCRIT 29.4 % (32.4-45.2); HEMOGLOBIN 9.8 GM/dL (10.7-15.3); LYMPH % 26.6 % (8-40); MCH 30.4 pg (25.7-33.7); MCHC 33.4 g/dl (32.0-36.0); MEAN CELL VOLUME 91.1 fl (80-96); MEAN PLT VOLUME 7.8 fl (7.5-11.1); MONO % 13.6 % (3.8-10.2); NEUT % 54.5 % (42.8-82.8); PLATELET COUNT 604 K/MM3 (134-434); RBC 3.22 M/mm3 (3.60-5.2); RDW 16.5 % (11.6-15.6); WHITE BLOOD COUNT 7.9 K/mm3 (4.0-10.0)
[2019-01-11 10:39] LABS: EPI CELLS 3.6 /HPF (0-5/HPF); HYALINE CASTS 2 /lpf (0-8); URINE APPEARANCE CLEAR; URINE BACTERIA 1.5 /hpf (NEGATIVE); URINE BILIRUBIN NEGATIVE (NEGATIVE); URINE COLOR YELLOW; URINE GLUCOSE (UA) NEGATIVE (NEGATIVE); URINE KETONE NEGATIVE (NEGATIVE); URINE LEUK ESTERASE TRACE (NEGATIVE); URINE NITRITE NEGATIVE (NEGATIVE); URINE PROTEIN NEGATIVE (NEGATIVE); URINE RBC 1 /hpf (0-4); URINE WBC 3 /hpf (0-5)
[2019-01-11 11:16] LABS: ALBUMIN 2.7 g/dl (3.4-5.0); ALK PHOS 332 U/L (45-117); ANION GAP 6 MMOL/L (8-16); BILIRUBIN,TOTAL 0.6 mg/dL (0.2-1); BLOOD UREA NITROGEN 22 mg/dL (7-18); CHLORIDE 105 mmol/L (98-107); CO2 27 mmol/L (21-32); CREATININE 1.3 mg/dL (0.55-1.3); GLUCOSE,RANDOM 105 mg/dL (74-106); POTASSIUM 5.8 mmol/L (3.5-5.1); SGOT/AST 64 U/L (15-37); SGPT/ALT 35 U/L (13-61); SODIUM 138 mmol/L (136-145); TOT PROT 8.7 g/dl (6.4-8.2)
[2019-01-11] MEDS ORDERED: SODIUM CHLORIDE 1,000 ML IV STA (14:10)
[2019-01-11] MEDS ORDERED: SODIUM CHLORIDE 1,000 ML IV SCH (14:15)
[2019-01-11] MEDS ORDERED: ACETAMINOPHEN 500 MG TABLET (FP) PO PRN (14:19)
[2019-01-11 14:24] LABS: CALCIUM 8.5 mg/dL (8.5-10.1); CREATININE 1.1 mg/dL (0.55-1.3); POTASSIUM 3.9 mmol/L (3.5-5.1)
--- NOTE | 2019-01-11 15:04 | EKG ---
Test Reason : Blood Pressure : / mmHG Vent. Rate : 076 BPM Atrial Rate : 076 BPM P-R Int : 166 ms QRS Dur : 078 ms QT Int : 432 ms P-R-T Axes : 046 -17 011 degrees QTc Int : 486 ms NORMAL SINUS RHYTHM NORMAL ECG WHEN COMPARED WITH ECG OF 24-JUN-2016 15:33, QT HAS LENGTHENED Confirmed by PANDA BRANDON MD ([id number]) on 01/11/2019 3:04:01 PM Referred By: Confirmed By:PANDA BRANDON MD
[2019-01-11] MEDS ORDERED: KETOROLAC TROMETHAMINE 15 MG/ML VIAL ONE (15:05)
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
[2019-01-11] MEDS: CYCLOBENZAPRINE HCL 5 MG TABLET PO SCH ×2 (15:16→21:20)
[2019-01-11] MEDS: KETOROLAC TROMETHAMINE 15 MG/ML VIAL IVPUSH PRN ×2 (15:16→18:52)
--- NOTE | 2019-01-11 15:46 | PN ---
Teaching Attending Note Name of Resident: Ramsey Ha ATTENDING PHYSICIAN STATEMENT I saw and evaluated the patient. I reviewed the resident's note and discussed the case with the resident. I agree with the resident's findings and plan as documented with exceptions below. SUBJECTIVE: 63 yof with PMhx of HTN, NIDDM, lumbar radiculopathy with chronic low back/leg pain followed by pain management Dr. Wong with cortisone injections(last several months ago), HCV s/p treatment, anemia, s/p splenectomy (?indication), comes with ED with left shoulder/left sided pain and possible syncope. Patient reports bending while opening fridge, felt dizzy, then vague recollection of getting up from the floor, walking and sitting on chair. She reports feeling left shoulder and left sided pain, and feels might have fallen on her left side. Denies any chest pain, dyspnea, weakness, visual changes, tongue bite, abdominal or urinary symptoms. reports was recently taken off losartan and placed on amlodipine. Recently started on lisinopril/HCTZ. reports long standing dizziness and decreased oral intake. Was seen in urgent care 2 days ago for blood sugars 180s, weakness, d/antione on cefuroxime, unclear why. Denies urinary symptoms. Currently left shoulder and left pain with some improvement. Has chronic back pain which is worse today but denies any new urinary or bowel incontinence, leg weakness, tingling or numbness. Has chronic numbness in bilateral fingers. OBJECTIVE: Vital Signs Period Temp Pulse Resp BP Sys/Chahal Pulse Ox Last 24 Hr 97.7 F 70-71 16-18 114-130/63-78 100-100 Intake & Output 01/08/19 01/09/19 01/10/19 01/11/19 23:59 23:59 23:59 23:59 Weight 183 lb GENERAL: Awake, alert, and fully oriented, in no acute distress. HEAD: Normal with no signs of trauma. EYES: Pupils equal, round and reactive to light, extraocular movements intact, sclera anicteric, conjunctiva clear. No lid lag. EARS, NOSE, THROAT: Ears normal, nares patent, oropharynx clear without exudates. Moist mucous membranes. NECK: Normal range of motion, supple, no JVD LUNGS: Breath sounds equal, clear to auscultation bilaterally. No wheezes, and no crackles. No accessory muscle use. HEART: Regular rate and rhythm, normal S1 and S2 ABDOMEN: Soft, nontender, not distended, normoactive bowel sounds, no guarding, no rebound, no masses. MUSCULOSKELETAL: No spinal tenderness, SLE LLE 30 degrees, RLE upto 50-60 degrees, able to elevate left shoulder above 90 degrees, however tenderness on minimal palpation of left shoulder, no point tenderness, swelling or erythema noted UPPER EXTREMITIES: 2+ pulses, warm, well-perfused. No cyanosis. No clubbing. No peripheral edema. LOWER EXTREMITIES: 2+ pulses, warm, well-perfused. No calf tenderness. No peripheral edema. NEUROLOGICAL: AAOX3, facial symmetry, power 5/5 in all extremities, except left hip elevation limited by pain, tongue midline, no pronator drift, Cranial nerves II-XII intact. Normal speech. Gait not observed PSYCHIATRIC: Cooperative. Good eye contact. Appropriate mood and affect. SKIN: Warm, dry, normal turgor, no rashes or lesions noted, normal capillary refill. Home Medications Medication Instructions Recorded Metformin HCl [Glucophage Xr] 500 mg PO BID 10/07/11 Gabapentin 300 mg PO BID 07/14/18 Zolpidem Tartrate [Ambien] 10 mg PO HS PRN 07/14/18 Acetaminophen [Tylenol -] 500 mg PO Q4H PRN 01/11/19 Amlodipine Besylate 5 mg PO DAILY 01/11/19 Ascorbic Acid [Vitamin C] 500 mg PO DAILY 01/11/19 Cefuroxime Axetil [Cefuroxime] 250 mg PO BID 01/11/19 Cetirizine HCl [Wal-Zyr] 10 mg PO DAILY PRN 01/11/19 Ferrous Sulfate 325 mg PO DAILY 01/11/19 Lisinopril/Hydrochlorothiazide 1 each PO DAILY 01/11/19 [Lisinopril-Hctz 20-25 mg Tab] Active Medications Acetaminophen (Tylenol -) 500 mg PO Q6H PRN PRN Reason: PAIN 1-6 Cefuroxime Axetil (Ceftin -) 250 mg PO BID [facility] Cyclobenzaprine HCl (Cyclobenzaprine Hcl) 5 mg PO TID [facility] Last Admin: 01/11/19 15:16 Dose: 5 mg Ferrous Sulfate (Feosol -) 325 mg PO DAILY [facility] Gabapentin (Neurontin -) 400 mg PO BID [facility] Heparin Sodium (Porcine) (Heparin -) 5,000 unit SQ TID [facility] Sodium Chloride (Normal Saline -) 1,000 mls @ 75 mls/hr IV ASDIR [facility] Insulin Aspart (Novolog Vial Sliding Scale -) 0 vial SQ ACHS [facility]; Protocol Ketorolac Tromethamine (Toradol Injection -) 15 mg IVPUSH Q6H PRN PRN Reason: PAIN LEVEL 7 - 10 Stop: 01/16/19 14:14 Last Admin: 01/11/19 15:16 Dose: 15 mg Lidocaine (Lidoderm Patch -) 1 patch TP DAILY [place] Miscellaneous (Lidoderm Patch Removal) 1 each MC DAILY@2200 [facility] Miscellaneous (Lidoderm Patch Removal) 1 each MC DAILY@2200 [facility] Zolpidem Tartrate (Ambien -) 5 mg PO HS PRN PRN Reason: INSOMNIA Laboratory Results - last 24 hr 01/11/19 01/11/19 01/11/19 10:00 10:00 10:00 WBC 7.9 RBC 3.22 L Hgb 9.8 L Hct 29.4 L MCV 91.1 MCH 30.4 D MCHC 33.4 RDW 16.5 H Plt Count 604 H D MPV 7.8 D Absolute Neuts (auto) 4.3 Neutrophils % 54.5 D Lymphocytes % 26.6 D Monocytes % 13.6 H Eosinophils % 3.4 D Basophils % 1.9 D Nucleated RBC % 0 Sodium 138 Potassium 5.8 H Chloride 105 Carbon Dioxide 27 Anion Gap 6 L BUN 22 H Creatinine 1.3 Est GFR (CKD-EPI)AfAm 49.86 Est GFR (CKD-EPI)NonAf 43.02 Random Glucose 105 Calcium 9.0 Total Bilirubin 0.6 AST 64 H ALT 35 Alkaline Phosphatase 332 H Troponin I < 0.02 B-Natriuretic Peptide 103.0 Total Protein 8.7 H Albumin 2.7 L Urine Color Yellow Urine Appearance Clear Urine pH 6.0 Ur Specific [place] 1.014 Urine Protein Negative Urine Glucose (UA) Negative Urine Ketones Negative Urine Blood Negative Urine Nitrite Negative Urine Bilirubin Negative Urine Urobilinogen 1.0 Ur Leukocyte Esterase Trace Urine WBC (Auto) 3 Urine RBC (Auto) 1 Urine Casts (Auto) 2 U Epithel Cells (Auto) 3.6 Urine Bacteria (Auto) 1.5 01/11/19 13:55 WBC RBC Hgb Hct MCV MCH MCHC RDW Plt Count MPV Absolute Neuts (auto) Neutrophils % Lymphocytes % Monocytes % Eosinophils % Basophils % Nucleated RBC % Sodium 140 Potassium 3.9 Chloride 107 Carbon Dioxide 29 Anion Gap 4 L BUN 19 H Creatinine 1.1 Est GFR (CKD-EPI)AfAm 61.01 Est GFR (CKD-EPI)NonAf 52.64 Random Glucose 145 H Calcium 8.5 Total Bilirubin AST ALT Alkaline Phosphatase Troponin I B-Natriuretic Peptide Total Protein Albumin Urine Color Urine Appearance Urine pH Ur Specific [place] Urine Protein Urine Glucose (UA) Urine Ketones Urine Blood Urine Nitrite Urine Bilirubin Urine Urobilinogen Ur Leukocyte Esterase Urine WBC (Auto) Urine RBC (Auto) Urine Casts (Auto) U Epithel Cells (Auto) Urine Bacteria (Auto) CT brain/C-spine results reviewed left shoulder/left hip/pelvis/left femur xray images reviewed EKG: NSR ASSESSMENT AND PLAN: 63 yof with PMhx of HTN, NIDDM, lumbar radiculopathy with chronic low back/leg pain followed by pain management Dr. Wong with cortisone injections(last several months ago), HCV s/p treatment, anemia, s/p splenectomy (?indication) admitted with syncope/?unwitnessed fall. -?Syncope, In the setting recent change in anti-hypertensives compounded by hypovolumia/orthostatic hypotension as suggested by mild JERED/hypoalbuminemia, r/ o arrhythmia, low suspicion for neurological etiology -Left shoulder/Left thigh pain -Acute on chronic low back pain, suspect from fall today -Lumbar radiculopathy s/p cortisone injections -?recent uncomplicated UTI -NIDDM -HTN -HCV s/p treatment -s/p splenectomy -Thrombocytosis, ?etiology -Anemia Plan: Check orthostatics, hold anti-hypertensives. Gentle hydration. Neuro checks, fall precautions. Recent concerns for exertional dyspnea, check 2D echo. Carotid duplex. Cardiology input if concerns on telemetry or 2D echo. Pain control with flexeril/toradol/lidocaine patch. Increase gabapentin. PT eval. Fall precautions. Continue cefuroxime DVTPPX heparin Dispo in 24 hours if work up unrevealing and no new concerns Plan discussed with patient in detail, all questions answered. Total admit time 65 min.
[2019-01-11] MEDS ORDERED: INSULIN SLIDING SCALE (NOVOLOG) 1 VIAL SQ SCH (16:30)
[2019-01-11 17:33] VITALS: BMI 31.3
[2019-01-11] MEDS ORDERED: PNEUMOC 13-VAL CONJ-DIP CRM/PF 0.5 ML DISP.SYRIN IM ONE (17:33)
[2019-01-11] MEDS ORDERED: PT OWN MED DRAWER 7, Y5N ONE (21:11)
[2019-01-11] MEDS: INSULIN SLIDING SCALE (NOVOLOG) 1 VIAL SQ SCH (21:20)
[2019-01-11] MEDS ORDERED: LIDOCAINE PATCH REMOVAL MC SCH ×2 (22:00)
[2019-01-11] MEDS ORDERED: ZOLPIDEM TARTRATE 5 MG TABLET PO PRN (22:00)
[2019-01-11] MEDS: HEPARIN NA (PORCINE) 5,000 UNITS/ML 1ML VIAL SQ SCH (22:12)
[2019-01-11] MEDS: CEFUROXIME AXETIL 250 MG TABLET PO SCH (22:13)
[2019-01-11] MEDS: GABAPENTIN 400 MG CAPSULE (FP) PO SCH (22:13)
[2019-01-12] MEDS: CYCLOBENZAPRINE HCL 5 MG TABLET PO SCH ×2 (05:55→13:30)
[2019-01-12] MEDS: HEPARIN NA (PORCINE) 5,000 UNITS/ML 1ML VIAL SQ SCH ×2 (05:56→13:30)
[2019-01-12] MEDS: INSULIN SLIDING SCALE (NOVOLOG) 1 VIAL SQ SCH ×2 (06:03→11:46)
[2019-01-12 06:22] VITALS: PULSE 56
[2019-01-12 07:04] LABS: HEMATOCRIT 26.3 % (32.4-45.2); HEMOGLOBIN 8.8 GM/dL (10.7-15.3); MCH 30.7 pg (25.7-33.7); MCHC 33.4 g/dl (32.0-36.0); MEAN CELL VOLUME 91.8 fl (80-96); PLATELET COUNT 548 K/MM3 (134-434); RBC 2.87 M/mm3 (3.60-5.2); RDW 16.8 % (11.6-15.6); WHITE BLOOD COUNT 7.1 K/mm3 (4.0-10.0)
[2019-01-12 07:55] LABS: CALCIUM 8.2 mg/dL (8.5-10.1); MAGNESIUM 2.5 mg/dL (1.8-2.4); PHOSPHOROUS 3.3 mg/dL (2.5-4.9); POTASSIUM 4.4 mmol/L (3.5-5.1)
[2019-01-12] MEDS: CEFUROXIME AXETIL 250 MG TABLET PO SCH (09:37)
[2019-01-12] MEDS: GABAPENTIN 400 MG CAPSULE (FP) PO SCH (09:38)
[2019-01-12] MEDS ORDERED: LIDOCAINE 5% TOPICAL PATCH TP SCH (10:00)
[2019-01-12] MEDS ORDERED: FERROUS SO4 325 MG TABLET (FP) PO SCH (10:00)
--- NOTE | 2019-01-12 10:21 | PN ---
Teaching Attending Note Name of Resident: Ramsey Ha ATTENDING PHYSICIAN STATEMENT I saw and evaluated the patient. I reviewed the resident's note and discussed the case with the resident. I agree with the resident's findings and plan as documented with exceptions below. SUBJECTIVE: Patient seen and examined, markedly improved, pain better, no new complaints. OBJECTIVE: Vital Signs Period Temp Pulse Resp BP Sys/Chahal Pulse Ox Last 24 Hr 97.8 F-99.2 F 56-82 18-20 112-144/60-84 98-100 Intake & Output 01/09/19 01/10/19 01/11/19 01/12/19 23:59 23:59 23:59 23:59 Intake Total 690 525 Balance 690 525 Weight 182 lb 6.4 oz General: sitting in bed in no acute distress Chest: CTAB, no rales or wheezing Abdomen:soft, obese, NT Extremities: no edema Musculoskeletal: no spinal tenderness, left shoulder ROM improve, able to fully elevated above head, SLR LLE 50 degrees, improved exam Neuro: AAOx3, no focal deficits, unchanged exam Home Medications Medication Instructions Recorded Metformin HCl [Glucophage Xr] 500 mg PO BID 10/07/11 Gabapentin 300 mg PO BID 07/14/18 Zolpidem Tartrate [Ambien] 10 mg PO HS PRN 07/14/18 Acetaminophen [Tylenol -] 500 mg PO Q4H PRN 01/11/19 Amlodipine Besylate 5 mg PO DAILY 01/11/19 Ascorbic Acid [Vitamin C] 500 mg PO DAILY 01/11/19 Cefuroxime Axetil [Cefuroxime] 250 mg PO BID 01/11/19 Cetirizine HCl [Wal-Zyr] 10 mg PO DAILY PRN 01/11/19 Ferrous Sulfate 325 mg PO DAILY 01/11/19 Lisinopril/Hydrochlorothiazide 1 each PO DAILY 01/11/19 [Lisinopril-Hctz 20-25 mg Tab] Active Medications Acetaminophen (Tylenol -) 500 mg PO Q6H PRN PRN Reason: PAIN 1-6 Last Admin: 01/12/19 06:03 Dose: 500 mg Cefuroxime Axetil (Ceftin -) 250 mg PO BID [facility] Last Admin: 01/12/19 09:37 Dose: 250 mg Cyclobenzaprine HCl (Cyclobenzaprine Hcl) 5 mg PO TID [facility] Last Admin: 01/12/19 05:55 Dose: Not Given Ferrous Sulfate (Feosol -) 325 mg PO DAILY [facility] Last Admin: 01/12/19 09:38 Dose: 325 mg Gabapentin (Neurontin -) 400 mg PO BID [facility] Last Admin: 01/12/19 09:38 Dose: 400 mg Heparin Sodium (Porcine) (Heparin -) 5,000 unit SQ TID [facility] Last Admin: 01/12/19 05:56 Dose: 5,000 unit Sodium Chloride (Normal Saline -) 1,000 mls @ 75 mls/hr IV ASDIR [facility] Last Admin: 01/11/19 16:15 Dose: 75 mls/hr Insulin Aspart (Novolog Vial Sliding Scale -) 1 vial SQ ACHS [facility]; Protocol Last Admin: 01/12/19 06:03 Dose: Not Given Ketorolac Tromethamine (Toradol Injection -) 15 mg IVPUSH Q6H PRN PRN Reason: PAIN LEVEL 7 - 10 Stop: 01/16/19 14:14 Last Admin: 01/11/19 18:52 Dose: 15 mg Lidocaine (Lidoderm Patch -) 1 patch TP DAILY [facility] Last Admin: 01/12/19 09:37 Dose: 1 patch Miscellaneous (Lidoderm Patch Removal) 1 each MC DAILY@2200 [facility] Last Admin: 01/11/19 22:32 Dose: Not Given Zolpidem Tartrate (Ambien -) 5 mg PO HS PRN PRN Reason: INSOMNIA Last Admin: 01/11/19 22:13 Dose: 5 mg Laboratory Results - last 24 hr 01/11/19 01/11/19 01/11/19 10:00 10:00 10:00 WBC 7.9 RBC 3.22 L Hgb 9.8 L Hct 29.4 L MCV 91.1 MCH 30.4 D MCHC 33.4 RDW 16.5 H Plt Count 604 H D MPV 7.8 D Absolute Neuts (auto) 4.3 Neutrophils % 54.5 D Lymphocytes % 26.6 D Monocytes % 13.6 H Eosinophils % 3.4 D Basophils % 1.9 D Nucleated RBC % 0 Sodium 138 Potassium 5.8 H Chloride 105 Carbon Dioxide 27 Anion Gap 6 L BUN 22 H Creatinine 1.3 Est GFR (CKD-EPI)AfAm 49.86 Est GFR (CKD-EPI)NonAf 43.02 POC Glucometer Random Glucose 105 Calcium 9.0 Phosphorus Magnesium Total Bilirubin 0.6 AST 64 H ALT 35 Alkaline Phosphatase 332 H Troponin I < 0.02 B-Natriuretic Peptide 103.0 Total Protein 8.7 H Albumin 2.7 L Vitamin B12 TSH Urine Color Yellow Urine Appearance Clear Urine pH 6.0 Ur Specific [place] 1.014 Urine Protein Negative Urine Glucose (UA) Negative Urine Ketones Negative Urine Blood Negative Urine Nitrite Negative Urine Bilirubin Negative Urine Urobilinogen 1.0 Ur Leukocyte Esterase Trace Urine WBC (Auto) 3 Urine RBC (Auto) 1 Urine Casts (Auto) 2 U Epithel Cells (Auto) 3.6 Urine Bacteria (Auto) 1.5 01/11/19 01/11/19 01/11/19 13:55 17:00 21:19 WBC RBC Hgb Hct MCV MCH MCHC RDW Plt Count MPV Absolute Neuts (auto) Neutrophils % Lymphocytes % Monocytes % Eosinophils % Basophils % Nucleated RBC % Sodium 140 Potassium 3.9 Chloride 107 Carbon Dioxide 29 Anion Gap 4 L BUN 19 H Creatinine 1.1 Est GFR (CKD-EPI)AfAm 61.01 Est GFR (CKD-EPI)NonAf 52.64 POC Glucometer 111 Random Glucose 145 H Calcium 8.5 Phosphorus Magnesium Total Bilirubin AST ALT Alkaline Phosphatase Troponin I < 0.02 B-Natriuretic Peptide Total Protein Albumin Vitamin B12 TSH Urine Color Urine Appearance Urine pH Ur Specific [place] Urine Protein Urine Glucose (UA) Urine Ketones Urine Blood Urine Nitrite Urine Bilirubin Urine Urobilinogen Ur Leukocyte Esterase Urine WBC (Auto) Urine RBC (Auto) Urine Casts (Auto) U Epithel Cells (Auto) Urine Bacteria (Auto) 01/12/19 01/12/19 01/12/19 05:30 05:30 05:59 WBC 7.1 RBC 2.87 L Hgb 8.8 L Hct 26.3 L MCV 91.8 MCH 30.7 MCHC 33.4 RDW 16.8 H Plt Count 548 H MPV 8.0 Absolute Neuts (auto) Neutrophils % Lymphocytes % Monocytes % Eosinophils % Basophils % Nucleated RBC % Sodium 142 Potassium 4.4 Chloride 113 H Carbon Dioxide 25 Anion Gap 5 L BUN 23 H Creatinine 1.0 Est GFR (CKD-EPI)AfAm 68.47 Est GFR (CKD-EPI)NonAf 59.07 POC Glucometer 102 Random Glucose 92 Calcium 8.2 L Phosphorus 3.3 Magnesium 2.5 H Total Bilirubin AST ALT Alkaline Phosphatase Troponin I B-Natriuretic Peptide Total Protein Albumin Vitamin B12 868 TSH 0.63 Urine Color Urine Appearance Urine pH Ur Specific [place] Urine Protein Urine Glucose (UA) Urine Ketones Urine Blood Urine Nitrite Urine Bilirubin Urine Urobilinogen Ur Leukocyte Esterase Urine WBC (Auto) Urine RBC (Auto) Urine Casts (Auto) U Epithel Cells (Auto) Urine Bacteria (Auto) Carotid duplex results noted Telemetry: NSR, no events overnight, artefact noted HR 60-80s, with no concerns ASSESSMENT AND PLAN: 63 yof with PMhx of HTN, NIDDM, lumbar radiculopathy with chronic low back/leg pain followed by pain management Dr. Wong with cortisone injections(last several months ago), HCV s/p treatment, anemia, s/p splenectomy (?indication) admitted with syncope/?unwitnessed fall. -?Syncope, In the setting recent change in anti-hypertensives compounded by hypovolumia/orthostatic hypotension as suggested by mild JERED/hypoalbuminemia, r/ o arrhythmia, low suspicion for neurological etiology -Left shoulder/Left thigh pain -Acute on chronic low back pain, suspect from fall today -Lumbar radiculopathy s/p cortisone injections -?recent uncomplicated UTI -NIDDM -HTN -HCV s/p treatment -s/p splenectomy -Thrombocytosis, ?etiology -Anemia Plan: Telemetry with no events, Tn neg. Orthostatic sneg. Resume amlodipine in 24 hours. Hold ACEi/HCTZ for now. Improved with hydration. pain better. follow up 2D echo. Continue flexeril/lidocaine patch/increased gabapentin. Cefuroxime for 3 more days PT eval noted, Dispo d/c home later today if 2D echo neg for concerns and no new events. Plan discussed with patient and nursing in detail, all questions answered.
[2019-01-12 10:22] VITALS: BP 137/73; TEMP 97.9
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
[2019-01-12] MEDS ORDERED: PT OWN MED DRAWER 7, Y5N ONE (13:54)
--- NOTE | 2019-01-12 14:42 | ECHO ---
Name: ZORAN HYMAN Exam:Adult Echocardiogram Study Date: 01/12/2019 12:38 PM Age: 63 yrs Reason For Study: SYNCOPE Height: 64 in Weight: 183 lb BSA: 1.9 m2 MMode/2D Measurements & Calculations IVSd: 0.94 cm Ao root diam: 2.7 cm LVIDd: 4.5 cm LA dimension: 3.7 cm LVIDs: 3.2 cm LVPWd: 0.87 cm EDV(Teich): 92.8 ml LVOT diam: 2.0 cm ESV(Teich): 40.8 ml Doppler Measurements & Calculations MV E max mateo: 67.9 cm/sec Ao V2 max: 158.1 cm/sec MV A max mateo: 76.7 cm/sec Ao max P.0 mmHg MV E/A: 0.88 Ao V2 mean: 106.5 cm/sec MV dec time: 0.28 sec Ao mean P.1 mmHg Ao V2 VTI: 30.4 cm FILI(V,D): 1.8 cm2 LV V1 max P.5 mmHg TR max mateo: 197.8 cm/sec LV V1 max: 93.7 cm/sec TR max P.8 mmHg Med Peak E' Mateo: 6.6 cm/sec Med E/e': 10.2 Lat Peak E' Mateo: 7.8 cm/sec Lat E/e': 8.7 Procedure A complete two-dimensional transthoracic echocardiogram was performed (2D, M-mode, Doppler and color flow Doppler). Left Ventricle The left ventricular size, thickness and function are normal. Ejection Fraction = 65%. E/A reversal c onsistent with but not diagnostic of poor LV compliance. The left ventricular wall motion is normal. Right Ventricle The right ventricle is normal in size and function. Atria Normal left and right atrial size and function. Mitral Valve The mitral valve is normal in structure and function. There is trace mitral regurgitation. Tricuspid Valve The tricuspid valve is normal in structure and function. There is trace tricuspid regurgitation. Righ t ventricular systolic pressure is normal. Right ventricular systolic pressure is 16 mmhg. Aortic Valve The aortic valve is normal in structure and function. Pulmonic Valve The pulmonic valve is normal in structure and function. Great Vessels The aortic root is normal size. Pericardium/Pleura There is no pericardial effusion. There is no pleural effusion. Interpretation Summary This degree of valvular regurgitation is within normal limits. The left ventricular size, thickness a nd function are normal Ejection Fraction = 65%. The right ventricle is normal in size and function. MD Franko Costa 01/12/2019 02:41 PM
== END 2019-01-12 15:15 | disposition home health service (06) ==
LOC: JER 07:51 → JERBED 12:32 → J4W 16:32
PROVIDERS: ADMIT Hospitalist; ATTEND Hospitalist
PROC: 3E0333Z Introduction of Anti-inflammatory into Peripheral Vein, Percutaneous Approach (ICD-10-PCS; principal; 2019-01-11)
PROC: 3E0337Z Introduction of Electrolytic and Water Balance Substance into Peripheral Vein, Percutaneous Approach (ICD-10-PCS; 2019-01-11)
PROC: 3E013GC Introduction of Other Therapeutic Substance into Subcutaneous Tissue, Percutaneous Approach (ICD-10-PCS; 2019-01-11)
DX: R55 Syncope and collapse (principal); N39.0 Urinary tract infection, site not specified; M25.552 Pain in left hip; M25.512 Pain in left shoulder; R20.2 Paresthesia of skin; I10 Essential (primary) hypertension; E11.9 Type 2 diabetes mellitus without complications; M54.5 Low back pain; G89.29 Other chronic pain; B18.2 Chronic viral hepatitis C; D64.9 Anemia, unspecified; G47.00 Insomnia, unspecified; Z88.5 Allergy status to narcotic agent; Z90.81 Acquired absence of spleen; Z79.84 Long term (current) use of oral hypoglycemic drugs; W18.39XA Other fall on same level, initial encounter; Y93.9 Activity, unspecified; Y92.000 Kitchen of unspecified non-institutional (private) residence as the place of occurrence of the external cause
CPT/HCPCS: 36415; 70450-TC; 71045-TC-FY; 72125-TC; 73030-TC-LT-FY; 73523-TC-FY; 73552-TC-LT-FY; 80048; 80053; 81003; 82607; 82962; 83735; 83880; 84100; 84443; 84484; 85025; 85027; 87086; 93005; 93010; 93306-TC; 93880-TC; 96361; 96372; 96374; 97116-GP; 97161-GP; 99285-25; G0378; J1644; J7030

== ENCOUNTER 2019-01-19 08:42 | Emergency (ER) | payer OTHER | END 2019-01-19 09:33 | disposition home or self-care (01) | LOC: JERFT 08:42 ==

== ENCOUNTER 2020-02-11 09:43 | Day surgery (SDC) | payer OTHER, MEDICARE ==
[2020-02-10 12:33] VITALS: BMI 31.4
[~2020-02-11 09:43] MED LIST changes: -BETAMET ACET/BETAMET NA PH 30 MG/5 ML VIAL IJ ONE; +DEXAMETHASONE SOD PHOSPHATE 10 MG/1 ML VIAL IM ONE; -IOHEXOL 180 MG/1 ML ML IJ ONE; -LIDOCAINE HCL 1%, 10 MG/ML (20ML VIAL) IJ ONE; +LIDOCAINE HCL 1%, 10 MG/ML (20ML VIAL) INF ONE
[2020-02-11] MEDS ORDERED: MIDAZOLAM HCL 2 MG/2 ML SINGLE DOSE VIAL ONE ×2 (13:14)
[2020-02-11] MEDS ORDERED: DEXAMETHASONE SOD PHOSPHATE/PF 10 MG/ML SDV ONE (13:30)
[2020-02-11] MEDS ORDERED: LIDOCAINE HCL 1%, 10 MG/ML (20ML VIAL) ONE (13:30)
[2020-02-11] MEDS ORDERED: BUPIVACAINE HCL/PF 0.25% (2.5MG/ML) 10 ML VIAL ONE (13:31)
[2020-02-11] MEDS ORDERED: IOHEXOL 180 MG/1 ML ML IJ ONE (13:36)
[2020-02-11] MEDS ORDERED: BUPIVACAINE HCL/PF 0.25% (2.5MG/ML) 10 ML VIAL IJ ONE (13:36)
[2020-02-11] MEDS ORDERED: LIDOCAINE HCL 1%, 10 MG/ML (20ML VIAL) INF ONE (13:36)
[2020-02-11] MEDS ORDERED: DEXAMETHASONE SOD PHOSPHATE 10 MG/1 ML VIAL IM ONE (13:38)
[2020-02-11] MEDS ORDERED: ONDANSETRON 4 MG/2 ML VIAL ONE (13:42)
[2020-02-11 14:33] VITALS: BP 131/70; PULSE 71; TEMP 97.8
--- NOTE | 2020-02-15 12:53 | PROC ---
Procedure Note Procedure: Date: 02/11/2020 Name of the patient: Josefa Shabazz Preoperative Diagnosis: Low Back pain and Lumbar radiculopathy Postoperative Diagnosis: Same Procedure Performed: Lumbar Epidural steroid injection Transforaminal L4 and L5 on Left Anesthesia: Local Procedure: I discussed with the patient in detail about the risks, benefits and alternatives to treatment not only limited to infection, headache, numbness, weakness and injury to nerves, blood vessels and muscles. The patient understood, agreed and signed the written consent. The patient was placed in the prone position with the head, abdomen and legs supported with the pillows. The lumbosacral area was prepped and draped with Betadine times three in a sterile fashion. The Left oblique view under the C-arm at L5- S1 level, with a #25 G, 1- 1/2 needle 3 ml of 1% Lidocaine was infiltrated in the skin and subcutaneous tissue. A spinal needle was used to approach epidural space via transforaminal approach with intermittent fluoroscopy in both AP and oblique views. After negative aspiration of blood and CSF, omnipaque (radio opaque dye) was used to confirm the spread of dye in epidural space. A solution containing 1 ml of Dexamethasone and 3 ml of Marcaine 0.25% total volume 4 ml was prepared, 2 ml was injected into the left L5-S1 level. While the needle was withdrawn, Lidocaine was infiltrated. The similar procedure was repeated at Left L4-5level. Bleeding was checked. Betadine waswiped off. A sterile bandage was placed. The patient tolerated the procedure well. There were no immediate complications. The patient was transferred to the recovery room. The patient was observed for some time and di scharged with a family member as per ASU criteria. The patient was told to apply ice at the injection site. If there is any problem, call my office or report to ER. ^ Elliott Wong M.D.
== END 2020-02-11 15:25 | disposition home or self-care (01) ==
LOC: JASU-SURG 09:43
PROVIDERS: ATTEND Physical Medicine & Rehabilitation
PROC: 3E0R33Z Introduction of Anti-inflammatory into Spinal Canal, Percutaneous Approach (ICD-10-PCS; 2020-02-11)
PROC: 3E0R3BZ Introduction of Anesthetic Agent into Spinal Canal, Percutaneous Approach (ICD-10-PCS; principal; 2020-02-11 12:30)
DX: M54.16 Radiculopathy, lumbar region (principal); M54.5 Low back pain; I10 Essential (primary) hypertension; E11.9 Type 2 diabetes mellitus without complications; Z79.84 Long term (current) use of oral hypoglycemic drugs; E66.9 Obesity, unspecified
CPT/HCPCS: 76000-TC-FY; J1100

== ENCOUNTER 2020-04-05 07:19 | Day surgery (SDC) | payer OTHER, MEDICARE ==
[2020-04-04 16:24] VITALS: BMI 29.2
[2020-04-05] MEDS ORDERED: LIDOCAINE HCL/PF 2% SDV 5ML VIAL ONE (07:26)
[2020-04-05] MEDS ORDERED: PROPOFOL 20 ML ONE ×3 (07:27)
[2020-04-05 10:00] VITALS: TEMP 97.6
[2020-04-05 10:35] VITALS: BP 140/83; PULSE 66
--- NOTE | 2020-04-07 17:51 | PATH ---
Surgical Pathology Report Patient Name: ZORAN HYMAN [facility]. Rec. #: [id number] /Age/Gender: 1955 (Age: 64) / F Account: [id number] Location: [facility] Taken: 04/05/2020 Received: 04/05/2020 Reported: 04/07/2020 Physicians: Cordell Norman M.D. Specimen(s) Received A: SECOND PORTION DUODENUM B: ANTRUM C: GASTRIC BODY Clinical History Anemia Postoperative diagnosis: Gastritis, atrophic changes in stomach, internal hemorrhoids Final Diagnosis A. SECOND PORTION OF DUODENUM, BIOPSY: DUODENAL MUCOSA WITH NO PATHOLOGIC FINDINGS. B. GASTRIC ANTRUM, BIOPSY: MODERATE CHRONIC ACTIVE GASTRITIS. IMMUNOSTAIN IS NEGATIVE FOR H. PYLORI ORGANISMS. C. GASTRIC BODY, BIOPSY: MILD CHRONIC GASTRITIS. IMMUNOSTAIN IS NEGATIVE FOR H. PYLORI ORGANISMS. Electronically Signed Samantha Hoyos M.D. Gross Description A. Received in formalin, labeled "biopsy second portion of duodenum" is a gonzalez, irregular portion of soft tissue measuring 0.3 cm. in greatest dimension. The specimen is submitted in toto in one cassette. B. Received in formalin, labeled "biopsy gastric antrum" are 2 gonzalez, irregular portions of soft tissue averaging 0.3 cm. in greatest dimension. The specimens are submitted in toto in one cassette. C. Received in formalin, labeled "biopsy gastric body" are 2 gonzalez, irregular portions of soft tissue measuring 0.4 and 0.5 cm. in greatest dimension. The specimens are submitted in toto in one cassette. 04/06/2020 saudi04/06/2020
== END 2020-04-05 10:40 | disposition home or self-care (01) ==
LOC: FASU-ENDO 07:19
PROVIDERS: ATTEND Internal Medicine Gastroenterology
PROC: 0DB68ZX Excision of Stomach, Via Natural or Artificial Opening Endoscopic, Diagnostic (ICD-10-PCS; 2020-04-05)
PROC: 0DB98ZX Excision of Duodenum, Via Natural or Artificial Opening Endoscopic, Diagnostic (ICD-10-PCS; principal; 2020-04-05 09:13)
DX: D50.9 Iron deficiency anemia, unspecified (principal); K29.50 Unspecified chronic gastritis without bleeding
CPT/HCPCS: 82962; 88305-TC; 88342-TC

== ENCOUNTER 2020-05-30 05:23 | Day surgery (SDC) | payer MEDICARE, OTHER ==
--- OUTSIDE RECORDS SUMMARY | 2020-05-30 05:26 | XMS ---
:1955 Author Organization [facility] Care Team Providers Name Role Phone Nazanin Mirta [employer] TECHNICIAN Unavailable Unavailable Re-disclosure Warning The records that you are about to access may contain information from federally- assisted alcohol or drug abuse programs. If such information is present, then the following federally mandated warning applies: This information has been disclosed to you from records protected by federal confidentiality rules (42 CFR part 2). The federal rules prohibit you from making any further disclosure of this information unless further disclosure is expressly permitted by the written consent of the person to whom it pertains or as otherwise permitted by 42 CFR part 2. A general authorization for the release of medical or other information is NOT sufficient for this purpose. The Federal rules restrict any use of the information to criminally investigate or prosecute any alcohol or drug abuse patient.The records that you are about to access may contain highly sensitive health information, the redisclosure of which is protected by Article 27-F of the [facility] Public Health law. If you continue you may haveaccess to information: Regarding HIV / AIDS; Provided by facilities licensed or operated by the [facility] Office of Mental Health; or Provided by the [facility] Office for People With Developmental Disabilities. If such information is present, then the following [facility] mandated warning applies: This information has been disclosed to you from confidential records which are protected by state law. State law prohibits you from making any further disclosure of this information without the specific written consent of the person to whom it pertains, or as otherwise permitted by law. Any unauthorized further disclosure in violation of state law may result in a fine or intermediate sentence or both. A general authorization for the release of medical or other information is NOT sufficient authorization for further disclosure. Encounters Encounter Providers Location Date Indications Data Source(s ) Outpatient Attender: Mirta 09/24/2018 Z90.81 [facility] Glendo Semmelrock [employer] E[employer] TECHNICIAN 10:44:00 [facility] SPLENECTOMY Z90.81 [facility] LAP[facility] SPLENECT JULIO Insurance Providers Payer name Policy type Policy ID Covered Covered green party's Policy P goran / Coverage green party ID relationship to [place] Inf ormation type [place] [employer]ERTY [id number] SP [id number] MUTUAL 7 7 AAR HEALTH [id number] SP [id number] CARE OPTIONS MEDICARE [id number] SP [id number] EMBLEM HIP [id number] PT [id number] HMO LIBERTY [id number] SP [id number] MUTUAL INS [id number] 01 [id number] CO AAR HEALTH [id number] SP [id number] CARE OPTIONS LIBERTY [id number] SP [id number] MUTUAL INS [id number] 01 [id number] CO LIBERTY [id number] SP [id number] MUTUAL INS 01 01 CO Results ID Date Data Source [id number] 05/25/2020 04:30:00 PM EDT [facility] Name Value Range Interpretation Description Data Sup porting Code Source(s) Document(s ) SARS [facility] coronavirus 2 RNA This lab was ordered by [facility] and reported by [facility]. ID Date Data Source [id number] 04/01/2020 12:35:00 PM EDT [facility] Name Value Range Interpretation Description Data Sup porting Code Source(s) Document(s ) SARS [facility] coronavirus 2 RNA This lab was ordered by [facility] and reported by [facility]. ID Date Data Source [id number] 02/08/2020 08:54:00 AM EDT [facility] Name Value Range Interpretation Description Data Sup porting Code Source(s) Document(s ) SARS [facility] CORONAVIRUS 2 RNA This lab was ordered by [facility] and reported by [facility]. ID Date Data Source [id number] 12/08/2019 12:00:00 AM EDT [facility] Name Value Range Interpretation Code Description Data [facility](s) Supporting Document(s ) 2019-nCoV [facility] RNA XXX CORA+probe- Imp This lab was ordered by [facility] and reported by [employer] Procedure
[2020-05-30] MEDS ORDERED: PROPOFOL 20 ML ONE (08:50)
[2020-05-30] MEDS ORDERED: MIDAZOLAM HCL 2 MG/2 ML SINGLE DOSE VIAL ONE (08:50)
[2020-05-30] MEDS ORDERED: DEXAMETHASONE SOD PHOSPHATE 4 MG/1 ML VIAL ONE (09:34)
[2020-05-30] MEDS ORDERED: BUPIVACAINE HCL/PF 0.25% (2.5MG/ML) 10 ML VIAL ONE (09:34)
[2020-05-30] MEDS ORDERED: BETAMET ACET/BETAMET NA PH 30 MG/5 ML VIAL ONE (09:47)
[2020-05-30] MEDS ORDERED: BUPIVACAINE HCL/PF 2.5 MG/ML - 30 ML VIAL IJ ONE (10:07)
[2020-05-30] MEDS ORDERED: LIDOCAINE HCL 1%, 10 MG/ML (20ML VIAL) INF ONE (10:07)
[2020-05-30] MEDS ORDERED: BETAMET ACET/BETAMET NA PH 30 MG/5 ML VIAL IM ONE (10:08)
[2020-05-30] MEDS ORDERED: IOHEXOL 180 MG/1 ML ML IJ ONE (10:08)
[2020-05-30 10:28] VITALS: TEMP 97.8
[2020-05-30 13:30] VITALS: BP 142/82; PULSE 71
--- NOTE | 2020-06-05 21:45 | PROC ---
Procedure Note Procedure: Date: 05/30/2020 : 1955 Age: 64 Year(s) Sex: Female Name of the patient: Josefa Shabazz Preoperative Diagnosis: Low Back pain and Lumbar radiculopathy Postoperative Diagnosis: Same Procedure Performed: Lumbar Epidural steroid injection Transforaminal L4 and L5 on Left in Hospital Anesthesia: Local Procedure: I discussed with the patient in detail about the risks, benefits and alternatives to treatment not only limited to infection, headache, numbness, w eakness and injury to nerves, blood vessels and muscles. The patient understood, agreed and signed the written consent. The patient was placed in the prone position with the head, abdomen and legs supported with the pillows. The lumbosacral area was prepped and draped with Betadine times three in a sterile fashion. The Left oblique view under the C-arm at L5- S1 level, with a #25 G, 1- 1/2 needle 3 ml of 1% Lidocaine was infiltrated in the skin and subcutaneous tissue. A spinal needle was used to approach epidural space via transforaminal approach with intermittent fluoroscopy in both AP and oblique views. After negative aspiration of blood and CSF, omnipaque (radio opaque dye) was used to confirm the spread of dye in epidural space. A solution containing 2.5 ml of Celestone and 1.5 ml of Marcaine 0.25% total volume 4 ml was prepared, 2 ml was injected into the left L5-S1 level. While the needle was withdrawn, Lidocaine was infiltrated. A similar procedure was repeated at Left L4-5level. Bleeding was checked. Betadine was wiped off. A sterile bandage was placed. The patient tolerated the procedure well. There were no immediate complications. The patient was transferred to the recovery room. The patient was observed for some time and discharged with a family member as per ASU criteria. The patient was told to apply ice at the injection site. If there is any problem, call my office or report to ER. ^ . Follow up appointment was given and also call my office at [phone]. If there is any problem, call my office or report to Emergency Room. Elliott Wong M.D.
== END 2020-05-30 12:00 | disposition home or self-care (01) ==
LOC: JASU-SURG 05:23
PROVIDERS: ATTEND Physical Medicine & Rehabilitation
PROC: 3E0R33Z Introduction of Anti-inflammatory into Spinal Canal, Percutaneous Approach (ICD-10-PCS; 2020-05-30)
PROC: 3E0R3BZ Introduction of Anesthetic Agent into Spinal Canal, Percutaneous Approach (ICD-10-PCS; principal; 2020-05-30 09:30)
DX: M54.16 Radiculopathy, lumbar region (principal); M54.5 Low back pain; I10 Essential (primary) hypertension; E11.9 Type 2 diabetes mellitus without complications; Z79.84 Long term (current) use of oral hypoglycemic drugs; D64.9 Anemia, unspecified
CPT/HCPCS: 76000-TC-FY; 82962

== ENCOUNTER 2020-07-10 15:37 | Emergency (ER) | payer OTHER, MEDICARE | END 2020-07-10 16:00 | disposition home or self-care (01) | LOC: JVIRT 15:37 | DX: Z03.818 Encounter for observation for suspected exposure to other biological agents ruled out (principal) | CPT/HCPCS: C9803; Q3014-GT; U0003 ==

== ENCOUNTER 2020-09-28 11:33 | Observation (INO) | payer OTHER, MEDICARE ==
[2020-09-28 12:13] VITALS: BMI 29.9
[2020-09-28 15:00] LABS: HEMATOCRIT 28.6 % (32.4-45.2); HEMOGLOBIN 9.1 GM/dl (10.7-15.3); MCHC 31.8 g/dl (32.0-36.0); MEAN CELL VOLUME 91.3 fl (80-96); MEAN PLT VOLUME 8.3 fl (7.5-11.1); PLATELET COUNT 557 K/MM3 (134-434); RBC 3.13 M/mm3 (3.60-5.2); RDW 16.9 % (11.6-15.6); WHITE BLOOD COUNT 12.6 K/mm3 (4.0-10.8)
[2020-09-28 15:05] LABS: ALBUMIN 2.6 g/dl (3.4-5.0); BILIRUBIN,TOTAL 1.1 mg/dl (0.2-1); CALCIUM 8.9 mg/dl (8.5-10); CREATININE 1.1 mg/dl (0.55-1.3); MAGNESIUM 1.9 mg/dL (1.8-2.4); PHOSPHOROUS 2.4 mg/dl (2.5-4.9); POTASSIUM 4.2 mmol/L (3.5-5.1)
[2020-09-28 15:20] LABS: ANISOCYTOSIS FEW; PLATELET ESTIMATE INCREASED
[2020-09-28] MEDS ORDERED: ZOLPIDEM TARTRATE 5 MG TABLET PO PRN (21:19)
[2020-09-28] MEDS ORDERED: ACETAMINOPHEN 325 MG TABLET (FP) PO PRN (21:21)
[2020-09-29] MEDS: INSULIN (NOVOLOG) ASPART 100 UNITS/ML 10ML VIAL SQ SCH ×4 (06:24→17:23)
[2020-09-29 07:43] LABS: EOS % 1.9 % (0-4.5); HEMATOCRIT 27.6 % (32.4-45.2); HEMOGLOBIN 8.5 GM/dl (10.7-15.3); LYMPH % 22.9 % (8-40); MCH 28.2 pg (25.7-33.7); MCHC 30.7 g/dl (32.0-36.0); MEAN CELL VOLUME 91.9 fl (80-96); MEAN PLT VOLUME 8.4 fl (7.5-11.1); NEUT % 54.2 % (42.8-82.8); PLATELET COUNT 573 K/MM3 (134-434); RBC 3.01 M/mm3 (3.60-5.2); RDW 16.9 % (11.6-15.6); WHITE BLOOD COUNT 9.9 K/mm3 (4.0-10.8)
[2020-09-29 07:53] LABS: ALBUMIN 2.3 g/dl (3.4-5.0); BILIRUBIN,TOTAL 0.7 mg/dl (0.2-1); CALCIUM 8.7 mg/dl (8.5-10); CREATININE 0.9 mg/dl (0.55-1.3); MAGNESIUM 1.9 mg/dL (1.8-2.4); POTASSIUM 4.4 mmol/L (3.5-5.1); TOT PROT 7.4 g/dl (6.4-8.2)
[2020-09-29] MEDS ORDERED: amLODIPine BESYLATE 5 MG TABLET (FP) PO SCH (10:00)
[2020-09-29] MEDS ORDERED: ENOXAPARIN NA (PORCINE) 40 MG/0.4 ML DISP.SYRIN SQ SCH (10:00)
[2020-09-29 15:07] VITALS: BP 129/63; PULSE 75; TEMP 98.6
== END 2020-09-29 18:00 | disposition home or self-care (01) ==
LOC: FER 11:33 → FM/S 15:45
PROVIDERS: ADMIT Internal Medicine; ATTEND Nurse Practitioner Acute Care
PROC: 3E023GC Introduction of Other Therapeutic Substance into Muscle, Percutaneous Approach (ICD-10-PCS; principal; 2020-09-28)
DX: R55 Syncope and collapse (principal); I10 Essential (primary) hypertension; B19.20 Unspecified viral hepatitis C without hepatic coma; I85.00 Esophageal varices without bleeding; K92.9 Disease of digestive system, unspecified; R79.89 Other specified abnormal findings of blood chemistry; I87.2 Venous insufficiency (chronic) (peripheral); Z87.19 Personal history of other diseases of the digestive system; Z87.891 Personal history of nicotine dependence; Z88.5 Allergy status to narcotic agent; K27.9 Peptic ulcer, site unspecified, unspecified as acute or chronic, without hemorrhage or perforation; D64.9 Anemia, unspecified
CPT/HCPCS: 36415; 71046-TC-FY; 80053; 82962; 83036; 83690; 83735; 84100; 84443; 84484; 85025; 93005; 96372; 97116-GP; 97162-GP; 99285-25; C9803; G0378; U0003

== ENCOUNTER 2021-02-09 20:11 | Inpatient (IN) | payer OTHER, MEDICARE ==
[2021-02-09 21:29] LABS: BASO % 0.8 % (0-2.0); EOS % 1.4 % (0-4.5); HEMATOCRIT 24.9 % (32.4-45.2); HEMOGLOBIN 8.2 GM/dL (10.7-15.3); LYMPH % 23.2 % (8-40); MCHC 33.1 g/dl (32.0-36.0); MEAN CELL VOLUME 87.7 fl (80-96); MEAN PLT VOLUME 8.5 fl (7.5-11.1); MONO % 21.4 % (3.8-10.2); NEUT % 53.2 % (42.8-82.8); PLATELET COUNT 589 10^3/uL (134-434); RBC 2.84 M/mm3 (3.60-5.2); RDW 18.4 % (11.6-15.6); WHITE BLOOD COUNT 11.1 K/mm3 (4.0-10.0)
[2021-02-09 21:31] LABS: PH,URINE 7.5 (5.0-8.0); URINE APPEARANCE CLEAR; URINE BILIRUBIN NEGATIVE (NEGATIVE); URINE COLOR YELLOW; URINE GLUCOSE (UA) NEGATIVE (NEGATIVE); URINE KETONE NEGATIVE (NEGATIVE); URINE LEUK ESTERASE NEGATIVE (NEGATIVE); URINE NITRITE NEGATIVE (NEGATIVE); URINE PROTEIN NEGATIVE (NEGATIVE); URINE UROBILINOGEN 0.2 mg/dL (0.2-1.0)
[2021-02-09 21:36] LABS: INR 1.25 (0.83-1.09); PROTHROMBIN TIME (PATIENT) 15.3 SEC (9.7-13.0)
[2021-02-09 21:39] LABS: ACTIVATED PTT 30.1 SECONDS (25.2-36.5)
[2021-02-09 21:49] LABS: COCAINE, UR NEGATIVE (NEGATIVE); METHADONE, UR NEGATIVE (NEGATIVE); OPIATES, URI NEGATIVE (NEGATIVE); URINE BENZODIAZEPINES NEGATIVE (NEGATIVE)
[2021-02-09 21:51] LABS: PHENCYCLIDINE,URINE NEGATIVE (NEGATIVE)
[2021-02-09 22:02] LABS: URINE AMPHETAMINES NEGATIVE (NEGATIVE); URINE BARBITURATES NEGATIVE (NEGATIVE)
[2021-02-09] MEDS ORDERED: SODIUM CHLORIDE 0.9% 500 ML INFUS.BAG IV ONE (22:04)
[2021-02-09 22:19] LABS: ANISOCYTOSIS 1+; MACROCYTOSIS 0; PLATELET ESTIMATE INCREASED; TARGET CELLS 1+
[2021-02-09 23:09] LABS: CHLORIDE 106 mmol/L (98-107); SODIUM 136 mmol/L (136-145)
[2021-02-09 23:27] LABS: ALBUMIN 2.4 g/dl (3.4-5.0); ALK PHOS 384 U/L (45-117); ANION GAP 7 MMOL/L (8-16); BILIRUBIN,DIRECT 0.2 mg/dL (0.0-0.2); BILIRUBIN,TOTAL 0.6 mg/dL (0.2-1); BLOOD UREA NITROGEN 11.8 mg/dL (7-18); CALCIUM 8.2 mg/dL (8.5-10.1); CO2 23 mmol/L (21-32); CREATININE 0.8 mg/dL (0.55-1.3); GLUCOSE,RANDOM 98 mg/dL (74-106); SGOT/AST 48 U/L (15-37); SGPT/ALT 24 U/L (13-61)
[2021-02-10] MEDS ORDERED: levETIRAcetam 250 MG TABLET PO ONE (00:25)
[2021-02-10] MEDS ORDERED: levETIRAcetam 500 MG TABLET (FP) PO ONE (00:51)
[2021-02-10] MEDS: MELATONIN 5 MG TABLETS PO PRN ×2 (02:23→21:46)
[2021-02-10 05:34] VITALS: BMI 29.1
[2021-02-10] MEDS: INSULIN SLIDING SCALE (NOVOLOG) 1 VIAL SQ SCH ×4 (06:05→21:47)
[2021-02-10] MEDS ORDERED: LORazepam 2 MG/ML SDV VIAL IVPUSH PRN ×3 (06:35→06:39)
[2021-02-10] MEDS ORDERED: ACETAMINOPHEN 500 MG TABLET (FP) PO PRN (08:30)
[2021-02-10] MEDS: amLODIPine BESYLATE 5 MG TABLET (FP) PO SCH ×2 (08:59→09:04)
[2021-02-10] MEDS: levETIRAcetam 250 MG TABLET PO SCH ×2 (08:59→21:31)
[2021-02-10] MEDS: ENOXAPARIN NA (PORCINE) 40 MG/0.4 ML DISP.SYRIN SQ SCH (08:59)
[2021-02-10] MEDS: CARVEDILOL 6.25 MG TABLET (FP) PO SCH ×2 (08:59→21:31)
[2021-02-10 09:37] LABS: IRON SERUM 26 ug/dL (50-175); TOTAL IRON BINDING CAPACITY 258 ug/dL (250-450)
[2021-02-10] MEDS ORDERED: PT OWN MED DRAWER 7, Y5N ONE ×3 (09:50→20:33)
[2021-02-10] MEDS: IRON POLYSACCHARIDES 150 MG CAPSULE PO SCH ×2 (11:26→21:31)
[2021-02-10 15:22] LABS: BASO % 0.7 % (0-2.0); EOS % 2.1 % (0-4.5); HEMATOCRIT 22.3 % (32.4-45.2); HEMOGLOBIN 7.3 GM/dL (10.7-15.3); LYMPH % 25.9 % (8-40); MCH 28.6 pg (25.7-33.7); MCHC 32.7 g/dl (32.0-36.0); MEAN CELL VOLUME 87.7 fl (80-96); MEAN PLT VOLUME 7.8 fl (7.5-11.1); MONO % 24.6 % (3.8-10.2); NEUT % 46.7 % (42.8-82.8); PLATELET COUNT 455 10^3/uL (134-434); RBC 2.54 M/mm3 (3.60-5.2); RDW 17.7 % (11.6-15.6)
[2021-02-10 15:39] LABS: CALCIUM 8.7 mg/dL (8.5-10.1)
[2021-02-10 15:40] LABS: ALBUMIN 2.2 g/dl (3.4-5.0); BLOOD UREA NITROGEN 13.8 mg/dL (7-18); MAGNESIUM 2.2 mg/dL (1.8-2.4)
[2021-02-10 15:43] LABS: CREATININE 1.4 mg/dL (0.55-1.3)
[2021-02-10 15:44] LABS: BILIRUBIN,TOTAL 0.3 mg/dL (0.2-1); TOT PROT 7.5 g/dl (6.4-8.2)
[2021-02-10 16:28] LABS: ANISOCYTOSIS 1+; MACROCYTOSIS 0; PLATELET ESTIMATE NORMAL; TARGET CELLS 1+
[2021-02-10] MEDS: ACETAMINOPHEN 325 MG TABLET (FP) PO PRN (21:34)
[2021-02-11] MEDS ORDERED: traZODone HCL 50 MG TABLET (FP) PO ONE (03:46)
[2021-02-11] MEDS: INSULIN SLIDING SCALE (NOVOLOG) 1 VIAL SQ SCH ×4 (06:51→21:38)
[2021-02-11 09:21] LABS: BASO % 1.5 % (0-2.0); EOS % 3.7 % (0-4.5); HEMATOCRIT 23.3 % (32.4-45.2); HEMOGLOBIN 7.6 GM/dL (10.7-15.3); LYMPH % 27.6 % (8-40); MCHC 32.8 g/dl (32.0-36.0); MEAN CELL VOLUME 88.3 fl (80-96); MEAN PLT VOLUME 8.4 fl (7.5-11.1); MONO % 27.1 % (3.8-10.2); NEUT % 40.1 % (42.8-82.8); PLATELET COUNT 471 10^3/uL (134-434); RBC 2.64 M/mm3 (3.60-5.2); RDW 17.9 % (11.6-15.6); WHITE BLOOD COUNT 7.7 K/mm3 (4.0-10.0)
[2021-02-11 09:24] LABS: ALBUMIN 2.3 g/dl (3.4-5.0); BLOOD UREA NITROGEN 15.5 mg/dL (7-18)
[2021-02-11 09:28] LABS: TOT PROT 7.7 g/dl (6.4-8.2)
[2021-02-11 09:31] LABS: BILIRUBIN,TOTAL 0.4 mg/dL (0.2-1)
[2021-02-11] MEDS ORDERED: PT OWN MED DRAWER 7, Y5N ONE ×2 (09:33→21:04)
[2021-02-11] MEDS: IRON POLYSACCHARIDES 150 MG CAPSULE PO SCH ×2 (09:41→21:34)
[2021-02-11] MEDS: amLODIPine BESYLATE 5 MG TABLET (FP) PO SCH (09:41)
[2021-02-11] MEDS: levETIRAcetam 250 MG TABLET PO SCH ×2 (09:41→21:35)
[2021-02-11] MEDS: ENOXAPARIN NA (PORCINE) 40 MG/0.4 ML DISP.SYRIN SQ SCH (09:41)
[2021-02-11] MEDS: CARVEDILOL 6.25 MG TABLET (FP) PO SCH ×2 (09:41→21:34)
[2021-02-11] MEDS: ACETAMINOPHEN 325 MG TABLET (FP) PO PRN (09:51)
[2021-02-11 11:09] LABS: ANISOCYTOSIS 1+; MACROCYTOSIS 1+; PLATELET ESTIMATE NORMAL; TARGET CELLS 1+
[2021-02-11] MEDS: POLYETHYLENE GLYCOL (HEALTHYLAX) 3350 17 GM PACKET PO SCH (14:28)
[2021-02-12] MEDS: INSULIN SLIDING SCALE (NOVOLOG) 1 VIAL SQ SCH ×2 (06:25→11:41)
[2021-02-12 08:16] LABS: BASO % 0.7 % (0-2.0); EOS % 2.4 % (0-4.5); HEMATOCRIT 23.4 % (32.4-45.2); HEMOGLOBIN 7.7 GM/dL (10.7-15.3); LYMPH % 26.4 % (8-40); MCH 28.9 pg (25.7-33.7); MCHC 32.9 g/dl (32.0-36.0); MEAN CELL VOLUME 87.9 fl (80-96); MEAN PLT VOLUME 8.7 fl (7.5-11.1); MONO % 27.6 % (3.8-10.2); NEUT % 42.9 % (42.8-82.8); PLATELET COUNT 445 10^3/uL (134-434); RBC 2.66 M/mm3 (3.60-5.2); WHITE BLOOD COUNT 9.8 K/mm3 (4.0-10.0)
[2021-02-12 08:41] LABS: ALBUMIN 2.2 g/dl (3.4-5.0); BLOOD UREA NITROGEN 17.4 mg/dL (7-18); CALCIUM 8.1 mg/dL (8.5-10.1)
[2021-02-12 08:46] LABS: BILIRUBIN,TOTAL 0.5 mg/dL (0.2-1); TOT PROT 7.4 g/dl (6.4-8.2)
[2021-02-12] MEDS ORDERED: PT OWN MED DRAWER 7, Y5N ONE (09:44)
[2021-02-12] MEDS: CARVEDILOL 6.25 MG TABLET (FP) PO SCH (09:49)
[2021-02-12] MEDS: amLODIPine BESYLATE 5 MG TABLET (FP) PO SCH (09:49)
[2021-02-12] MEDS: IRON POLYSACCHARIDES 150 MG CAPSULE PO SCH (09:49)
[2021-02-12] MEDS: levETIRAcetam 250 MG TABLET PO SCH (09:49)
[2021-02-12] MEDS: ACETAMINOPHEN 325 MG TABLET (FP) PO PRN (09:50)
[2021-02-12] MEDS: ENOXAPARIN NA (PORCINE) 40 MG/0.4 ML DISP.SYRIN SQ SCH (09:50)
[2021-02-12] MEDS: POLYETHYLENE GLYCOL (HEALTHYLAX) 3350 17 GM PACKET PO SCH ×2 (09:50→09:53)
[2021-02-12 10:35] LABS: ANISOCYTOSIS 0; MACROCYTOSIS 0; PLATELET ESTIMATE NORMAL; TARGET CELLS 2+; TEAR DROP CELLS 1+
[2021-02-12 13:22] VITALS: BP 146/77; PULSE 68; TEMP 98
== END 2021-02-12 17:25 | disposition home or self-care (01) | DRG 101 ==
LOC: JER 20:11 → JERBED 02-10 00:25 → J8W 02-10 05:02
PROVIDERS: ADMIT Hospitalist; ATTEND Student in an Organized Health Care Education/Training Program
DX: R56.9 Unspecified convulsions (principal); I85.00 Esophageal varices without bleeding; R16.1 Splenomegaly, not elsewhere classified; R74.01 Elevation of levels of liver transaminase levels; E87.5 Hyperkalemia; E11.51 Type 2 diabetes mellitus with diabetic peripheral angiopathy without gangrene; K74.60 Unspecified cirrhosis of liver; R55 Syncope and collapse; D72.829 Elevated white blood cell count, unspecified; R41.82 Altered mental status, unspecified; E11.9 Type 2 diabetes mellitus without complications; I10 Essential (primary) hypertension; D47.3 Essential (hemorrhagic) thrombocythemia; D64.9 Anemia, unspecified; G89.29 Other chronic pain; Z87.11 Personal history of peptic ulcer disease; N28.1 Cyst of kidney, acquired
CPT/HCPCS: 36415; 70450-TC; 70551-TC; 71045-TC-FY; 76705-TC; 80048; 80053; 80076; 80307; 81003; 82140; 82272; 82550; 82728; 82962; 82977; 83010; 83540; 83550; 83615; 83735; 84146; 84443; 84484; 85025; 85045; 85610; 85730; 87040; 93005; 93010; 95816; 97116-GP; 97161-GP; 99285-25; C9803; U0003; U0005

== ENCOUNTER 2021-06-20 11:03 | Observation (INO) | payer OTHER, MEDICARE ==
[2021-06-20] MEDS ORDERED: SODIUM CHLORIDE 1,000 ML IV STA (11:26)
[2021-06-20 12:46] LABS: HEMOGLOBIN 11.2 GM/dl (10.7-15.3); MCH 31.3 pg (25.7-33.7); MCHC 32.1 g/dl (32.0-36.0); MEAN CELL VOLUME 97.3 fl (80-96); PLATELET COUNT 259 10^3/uL (134-434); RBC 3.59 M/mm3 (3.60-5.2); RDW 15.5 % (11.6-15.6); WHITE BLOOD COUNT 10.2 K/mm3 (4.0-10.8)
[2021-06-20 13:05] LABS: ALBUMIN 3.2 g/dl (3.4-5.0); ALK PHOS 185 U/L (45-117); ANION GAP 13 MMOL/L (8-16); CALCIUM 8.7 mg/dl (8.5-10); CHLORIDE 93 mmol/L (98-107); CO2 23 mmol/L (21-32); CREATININE 1.3 mg/dl (0.55-1.3); MAGNESIUM 1.7 mg/dL (1.8-2.4); PHOSPHOROUS 2.8 mg/dl (2.5-4.9); SGOT/AST 29 U/L (15-37); SGPT/ALT 40 U/L (13-61); SODIUM 129 mmol/L (136-145); TOT PROT 6.2 g/dl (6.4-8.2)
[2021-06-20 13:08] LABS: GLUCOSE,RANDOM 583 mg/dl (74-106)
[2021-06-20 13:10] LABS: ADD RBC MORPHOLOGY YES
[2021-06-20 13:18] LABS: EPITHELIAL CELLS FEW /hpf
[2021-06-20] MEDS ORDERED: MAGNESIUM 1GM/D5W - 1 GM/100 ML IVPB IVPB ONE (13:18)
[2021-06-20] MEDS ORDERED: INSULIN REGULAR HUMAN 100 UNITS/ML *VIAL SQ ONE (13:20)
[2021-06-20] MEDS ORDERED: INSULIN REGULAR HUMAN 100 UNITS/ML *VIAL ONE (13:32)
[2021-06-20 13:44] LABS: VENOUS BASE EXCESS 2.6 mmol/L (-2-2); VENOUS O2 SATURATION 92.8 % (70-80); VENOUS PCO2 43.5 mmHg (38-52); VENOUS PH 7.418 (7.310-7.410)
[2021-06-20 13:59] LABS: PLATELET ESTIMATE ADEQUATE
[2021-06-20 14:19] LABS: LACTIC ACID 2.5 mmol/L (0.4-2.0)
[2021-06-20] MEDS ORDERED: SODIUM CHLORIDE 1,000 ML IV SCH (14:45)
[2021-06-20 17:38] VITALS: BMI 30.2
[2021-06-20] MEDS: INSULIN SLIDING SCALE (NOVOLOG) 1 VIAL SQ SCH ×2 (17:56→22:10)
[2021-06-20] MEDS: CARVEDILOL 6.25 MG TABLET (FP) PO SCH (21:23)
[2021-06-20] MEDS: HEPARIN NA (PORCINE) 5,000 UNITS/ML 1ML VIAL SQ SCH (21:24)
[2021-06-21] MEDS: INSULIN SLIDING SCALE (NOVOLOG) 1 VIAL SQ SCH ×4 (06:12→22:10)
[2021-06-21] MEDS: HEPARIN NA (PORCINE) 5,000 UNITS/ML 1ML VIAL SQ SCH ×3 (06:12→21:38)
[2021-06-21] MEDS ORDERED: metFORMIN HCL 500 MG TABLET (FP) PO SCH (07:00)
[2021-06-21 08:07] LABS: HEMATOCRIT 32.3 % (32.4-45.2); HEMOGLOBIN 10.5 GM/dl (10.7-15.3); MCH 31.3 pg (25.7-33.7); MCHC 32.4 g/dl (32.0-36.0); MEAN CELL VOLUME 96.6 fl (80-96); MEAN PLT VOLUME 9.6 fl (7.5-11.1); PLATELET COUNT 263 10^3/uL (134-434); RBC 3.35 M/mm3 (3.60-5.2); RDW 16.2 % (11.6-15.6); WHITE BLOOD COUNT 9.9 K/mm3 (4.0-10.8)
[2021-06-21 08:47] LABS: ADD RBC MORPHOLOGY YES
[2021-06-21 09:03] LABS: ALBUMIN 2.6 g/dl (3.4-5.0); BILIRUBIN,TOTAL 0.7 mg/dl (0.2-1); CALCIUM 8.2 mg/dl (8.5-10); MAGNESIUM 1.6 mg/dL (1.8-2.4); PHOSPHOROUS 2.1 mg/dl (2.5-4.9); TOT PROT 5.6 g/dl (6.4-8.2)
[2021-06-21] MEDS: LOSARTAN POTASSIUM 50 MG TABLET PO SCH (09:10)
[2021-06-21] MEDS: ACETAMINOPHEN 325 MG TABLET (FP) PO PRN (09:10)
[2021-06-21] MEDS: PANTOPRAZOLE 20 MG TABLET PO SCH (09:10)
[2021-06-21] MEDS: CARVEDILOL 6.25 MG TABLET (FP) PO SCH ×2 (09:10→21:37)
[2021-06-21] MEDS: amLODIPine BESYLATE 10 MG TABLET (FP) PO SCH (09:10)
[2021-06-21 09:51] LABS: ANISOCYTOSIS 1+; PLATELET ESTIMATE ADEQUATE
[2021-06-21] MEDS ORDERED: MAGNESIUM SULF 50% (8.12 MEQ/2 ML-1 GM VIAL) IVPB ONE (10:39)
[2021-06-21] MEDS ORDERED: MAGNESIUM SULFATE IN WATER 2 GM/50 ML IVPB IVPB ONE (10:45)
[2021-06-21] MEDS: POTASSIUM CHLORIDE TABS 20 MEQ TABLET.ER (FP) PO SCH ×2 (11:13→16:27)
[2021-06-21] MEDS: BUDESONIDE 3 MG PO SCH ×2 (14:58→21:39)
[2021-06-22] MEDS: HEPARIN NA (PORCINE) 5,000 UNITS/ML 1ML VIAL SQ SCH ×2 (05:45→13:10)
[2021-06-22] MEDS: INSULIN SLIDING SCALE (NOVOLOG) 1 VIAL SQ SCH ×2 (06:10→12:06)
[2021-06-22 08:15] LABS: BASO % 3.6 % (0-2.0); EOS % 1.6 % (0-4.5); HEMATOCRIT 31.4 % (32.4-45.2); LYMPH % 18.9 % (8-40); MCH 30.7 pg (25.7-33.7); MEAN PLT VOLUME 9.3 fl (7.5-11.1); MONO % 8.8 % (3.8-10.2); NEUT % 67.1 % (42.8-82.8); PLATELET COUNT 242 10^3/uL (134-434); RBC 3.27 M/mm3 (3.60-5.2); RDW 15.4 % (11.6-15.6); WHITE BLOOD COUNT 9.4 K/mm3 (4.0-10.8)
[2021-06-22 08:18] LABS: ALBUMIN 2.4 g/dl (3.4-5.0); BILIRUBIN,TOTAL 0.5 mg/dl (0.2-1); CREATININE 1.1 mg/dl (0.55-1.3); MAGNESIUM 1.8 mg/dL (1.8-2.4); TOT PROT 5.2 g/dl (6.4-8.2)
[2021-06-22 08:51] VITALS: BP 144/77; PULSE 80; TEMP 98.9
[2021-06-22] MEDS: PANTOPRAZOLE 20 MG TABLET PO SCH (09:11)
[2021-06-22] MEDS: LOSARTAN POTASSIUM 50 MG TABLET PO SCH (09:12)
[2021-06-22] MEDS: amLODIPine BESYLATE 10 MG TABLET (FP) PO SCH (09:12)
[2021-06-22] MEDS: CARVEDILOL 6.25 MG TABLET (FP) PO SCH (09:12)
[2021-06-22] MEDS: BUDESONIDE 3 MG PO SCH (09:37)
[2021-06-22] MEDS: ACETAMINOPHEN 325 MG TABLET (FP) PO PRN (11:46)
== END 2021-06-22 15:06 | disposition home or self-care (01) ==
LOC: FER 11:03 → FM/S 16:23 → INTOOBSV 16:23
PROVIDERS: ADMIT Internal Medicine; ATTEND Nurse Practitioner Acute Care
PROC: 3E023GC Introduction of Other Therapeutic Substance into Muscle, Percutaneous Approach (ICD-10-PCS; principal; 2021-06-20)
PROC: 3E013VG Introduction of Insulin into Subcutaneous Tissue, Percutaneous Approach (ICD-10-PCS; 2021-06-20)
PROC: 3E033GC Introduction of Other Therapeutic Substance into Peripheral Vein, Percutaneous Approach (ICD-10-PCS; 2021-06-20)
PROC: 3E0337Z Introduction of Electrolytic and Water Balance Substance into Peripheral Vein, Percutaneous Approach (ICD-10-PCS; 2021-06-20)
DX: K27.9 Peptic ulcer, site unspecified, unspecified as acute or chronic, without hemorrhage or perforation (principal); R79.89 Other specified abnormal findings of blood chemistry; I85.00 Esophageal varices without bleeding; E11.65 Type 2 diabetes mellitus with hyperglycemia; B19.20 Unspecified viral hepatitis C without hepatic coma; Q89.01 Asplenia (congenital); I73.89 Other specified peripheral vascular diseases; G89.29 Other chronic pain; M54.9 Dorsalgia, unspecified; Z90.79 Acquired absence of other genital organ(s); Z87.891 Personal history of nicotine dependence; Z29.9 Encounter for prophylactic measures, unspecified
CPT/HCPCS: 36415; 71045-TC-FY; 74176-TC; 80053; 81003; 81015; 82010; 82550; 82803; 82962; 83605; 83735; 83880; 84100; 84484; 85025; 87040; 87086; 87186; 93005; 93306-TC; 93970-TC; 96361; 96365; 96367; 96372; 97116-GP; 97162-GP; 99285-25; C9803; G0378; J1644; U0003; U0005

== ENCOUNTER 2021-06-25 13:05 | Inpatient (IN) | payer OTHER, MEDICARE ==
[2021-06-25 16:07] LABS: EPI CELLS 28 /uL (0-25.1); HYALINE CASTS 1 /uL (0-3.1); URINE APPEARANCE CLEAR; URINE BACTERIA 180 /uL (0-1359); URINE BILIRUBIN NEGATIVE (NEGATIVE); URINE COLOR YELLOW; URINE GLUCOSE (UA) NEGATIVE (NEGATIVE); URINE KETONE TRACE (NEGATIVE); URINE LEUK ESTERASE NEGATIVE (NEGATIVE); URINE NITRITE NEGATIVE (NEGATIVE); URINE PROTEIN 2+ (NEGATIVE); URINE RBC 26 /uL (0-23.9); URINE UROBILINOGEN 0.2 mg/dL (0.2-1.0); URINE WBC 23 /uL (0-25.8)
[2021-06-25] MEDS ORDERED: ACETAMINOPHEN 1000 MG/100 ML VIAL IVPB ONE (16:23)
[2021-06-25] MEDS ORDERED: FUROSEMIDE 40 MG/4 ML INJECTABLE VIAL IVPUSH ONE (16:24)
[2021-06-25] MEDS ORDERED: ACETAMINOPHEN INJECTION 100 ML IVPB ONE (16:35)
[2021-06-25] MEDS ORDERED: FUROSEMIDE 40 MG/4 ML INJECTABLE VIAL ONE (16:35)
[2021-06-25 16:51] LABS: EOS % 0.1 % (0-4.5); HEMATOCRIT 33.2 % (32.4-45.2); HEMOGLOBIN 11.1 GM/dL (10.7-15.3); MCH 31.3 pg (25.7-33.7); MCHC 33.4 g/dl (32.0-36.0); MEAN CELL VOLUME 93.6 fl (80-96); MEAN PLT VOLUME 8.4 fl (7.5-11.1); MONO % 9.7 % (3.8-10.2); NEUT % 77.2 % (42.8-82.8); PLATELET COUNT 263 10^3/uL (134-434); RBC 3.55 M/mm3 (3.60-5.2); RDW 16.3 % (11.6-15.6); WHITE BLOOD COUNT 9.8 K/mm3 (4.0-10.0)
[2021-06-25 17:03] LABS: INR 1.02 (0.83-1.09); PROTHROMBIN TIME (PATIENT) 11.4 SEC (9.7-13.0)
[2021-06-25 17:06] LABS: CHLORIDE 109 mmol/L (98-107); SODIUM 137 mmol/L (136-145)
[2021-06-25 17:09] LABS: ANION GAP 8 MMOL/L (8-16); BLOOD UREA NITROGEN 13.9 mg/dL (7-18); CALCIUM 9.3 mg/dL (8.5-10.1); CO2 20 mmol/L (21-32); GLUCOSE,RANDOM 288 mg/dL (74-106); LIPASE 615 U/L (73-393)
[2021-06-25 17:12] LABS: CREATININE 1.4 mg/dL (0.55-1.3); SGOT/AST 48 U/L (15-37); SGPT/ALT 55 U/L (13-61)
[2021-06-25 17:13] LABS: BILIRUBIN,TOTAL 0.5 mg/dL (0.2-1); TOT PROT 6.9 g/dl (6.4-8.2)
[2021-06-25 17:15] LABS: ALK PHOS 222 U/L (45-117)
[2021-06-25 17:17] LABS: N-TERMINAL BNP 395.2 pg/ml (5-125)
[2021-06-25] MEDS ORDERED: SODIUM CHLORIDE 500 ML IV STA (18:29)
[2021-06-25] MEDS ORDERED: CEFEPIME 1 GM/100 ML BAG IVPB ONE (22:16)
[2021-06-25] MEDS ORDERED: amLODIPine BESYLATE 5 MG TABLET (FP) ONE (22:16)
[2021-06-25] MEDS ORDERED: CARVEDILOL 12.5 MG TABLET (FP) ONE (22:16)
[2021-06-25] MEDS: amLODIPine BESYLATE 10 MG TABLET (FP) PO SCH (22:51)
[2021-06-25] MEDS: CEFEPIME 1 GM in DEXTROSE 5%-WATER 100 ML IVPB SCH (22:51)
[2021-06-25] MEDS: CARVEDILOL 6.25 MG TABLET (FP) PO SCH (22:51)
[2021-06-25] MEDS ORDERED: INSULIN SLIDING SCALE (NOVOLOG) 1 VIAL SQ ONE (22:52)
[2021-06-25] MEDS: INSULIN SLIDING SCALE (NOVOLOG) 1 VIAL SQ SCH (23:48)
[2021-06-26] MEDS ORDERED: ZOLPIDEM TARTRATE 5 MG TABLET PO ONE (00:01)
[2021-06-26] MEDS ORDERED: ZOLPIDEM TARTRATE 5 MG TABLET ONE (00:12)
[2021-06-26] MEDS ORDERED: LOSARTAN POTASSIUM 50 MG TABLET ONE (08:19)
[2021-06-26] MEDS: LOSARTAN POTASSIUM 50 MG TABLET PO SCH (08:30)
[2021-06-26] MEDS: INSULIN SLIDING SCALE (NOVOLOG) 1 VIAL SQ SCH ×4 (08:30→21:33)
[2021-06-26 08:38] LABS: CHLORIDE 113 mmol/L (98-107); SODIUM 141 mmol/L (136-145)
[2021-06-26 08:40] LABS: CALCIUM 8.7 mg/dL (8.5-10.1)
[2021-06-26 08:41] LABS: ANION GAP 6 MMOL/L (8-16); BLOOD UREA NITROGEN 14.7 mg/dL (7-18); CO2 22 mmol/L (21-32); GLUCOSE,RANDOM 268 mg/dL (74-106)
[2021-06-26 08:44] LABS: CREATININE 1.1 mg/dL (0.55-1.3); SGOT/AST 38 U/L (15-37); SGPT/ALT 48 U/L (13-61)
[2021-06-26 08:45] LABS: BILIRUBIN,TOTAL 0.5 mg/dL (0.2-1)
[2021-06-26 08:46] LABS: TOT PROT 5.7 g/dl (6.4-8.2)
[2021-06-26 08:51] LABS: ALBUMIN 2.3 g/dl (3.4-5.0); ALK PHOS 188 U/L (45-117)
[2021-06-26] MEDS ORDERED: CARVEDILOL 3.125 MG TABLET (FP) ONE (09:30)
[2021-06-26] MEDS ORDERED: CEFEPIME 1 GM/100 ML BAG IVPB ONE (09:31)
[2021-06-26] MEDS ORDERED: ESCITALOPRAM OXALATE 10 MG TABLET ONE (09:31)
[2021-06-26] MEDS: ESCITALOPRAM OXALATE 10 MG TABLET PO SCH (09:41)
[2021-06-26] MEDS: CARVEDILOL 6.25 MG TABLET (FP) PO SCH ×2 (09:41→21:34)
[2021-06-26] MEDS: CEFEPIME 1 GM in DEXTROSE 5%-WATER 100 ML IVPB SCH (09:41)
[2021-06-26] MEDS ORDERED: amLODIPine BESYLATE 10 MG TABLET (FP) PO SCH (10:00)
[2021-06-26] MEDS ORDERED: CEFEPIME 1 GM in DEXTROSE 5%-WATER 100 ML IVPB SCH (10:00)
[2021-06-26] MEDS ORDERED: INSULIN SLIDING SCALE (NOVOLOG) 1 VIAL SQ ONE (13:00)
[2021-06-26] MEDS ORDERED: ACETAMINOPHEN 325 MG TABLET (FP) PO PRN (13:49)
[2021-06-26] MEDS ORDERED: SODIUM CHLORIDE 0.45% 1,000 ML IV SCH (14:15)
[2021-06-26] MEDS ORDERED: INSULIN REGULAR HUMAN 100 UNITS/ML *VIAL ONE (18:02)
[2021-06-26 18:35] LABS: EPI CELLS >36 /uL (0-25.1); HYALINE CASTS 1 /uL (0-3.1); URINE APPEARANCE CLEAR; URINE BACTERIA 26 /uL (0-1359); URINE BILIRUBIN NEGATIVE (NEGATIVE); URINE COLOR YELLOW; URINE GLUCOSE (UA) NEGATIVE (NEGATIVE); URINE KETONE TRACE (NEGATIVE); URINE LEUK ESTERASE 1+ (NEGATIVE); URINE NITRITE NEGATIVE (NEGATIVE); URINE PROTEIN 1+ (NEGATIVE); URINE RBC 7 /uL (0-23.9); URINE UROBILINOGEN 0.2 mg/dL (0.2-1.0); URINE WBC 59 /uL (0-25.8)
[2021-06-26] MEDS: ACETAMINOPHEN 325 MG TABLET (FP) PO PRN (20:07)
[2021-06-26] MEDS: INSULIN (LEVEMIR) 100 UNITS/ML UNITS SQ SCH (21:32)
[2021-06-26] MEDS: amLODIPine BESYLATE 10 MG TABLET (FP) PO SCH (21:34)
[2021-06-26] MEDS: POLYETHYLENE GLYCOL (HEALTHYLAX) 3350 17 GM PACKET PO SCH (21:34)
[2021-06-26] MEDS: ZOLPIDEM TARTRATE 5 MG TABLET PO PRN (21:38)
[2021-06-26] MEDS ORDERED: levETIRAcetam 250 MG TABLET PO SCH (22:00)
[2021-06-27] MEDS: LOSARTAN POTASSIUM 50 MG TABLET PO SCH (06:27)
[2021-06-27] MEDS: INSULIN SLIDING SCALE (NOVOLOG) 1 VIAL SQ SCH ×4 (06:27→21:02)
[2021-06-27 09:08] LABS: BASO % 0.8 % (0-2.0); EOS % 1.9 % (0-4.5); HEMATOCRIT 30.9 % (32.4-45.2); HEMOGLOBIN 10.5 GM/dL (10.7-15.3); LYMPH % 25.2 % (8-40); MCH 31.5 pg (25.7-33.7); MCHC 33.8 g/dl (32.0-36.0); MEAN CELL VOLUME 93.2 fl (80-96); MEAN PLT VOLUME 8.3 fl (7.5-11.1); MONO % 12.9 % (3.8-10.2); NEUT % 59.2 % (42.8-82.8); PLATELET COUNT 275 10^3/uL (134-434); RBC 3.32 M/mm3 (3.60-5.2); RDW 15.9 % (11.6-15.6); WHITE BLOOD COUNT 7.6 K/mm3 (4.0-10.0)
[2021-06-27 09:13] LABS: INR 1.04 (0.83-1.09); PROTHROMBIN TIME (PATIENT) 11.6 SEC (9.7-13.0)
[2021-06-27 09:36] LABS: ALBUMIN 2.4 g/dl (3.4-5.0)
[2021-06-27 09:39] LABS: BILIRUBIN,DIRECT 0.2 mg/dL (0.0-0.2)
[2021-06-27 09:40] LABS: BILIRUBIN,TOTAL 0.6 mg/dL (0.2-1)
[2021-06-27 10:20] LABS: CALCIUM 8.8 mg/dL (8.5-10.1)
[2021-06-27 10:21] LABS: BLOOD UREA NITROGEN 14.3 mg/dL (7-18)
[2021-06-27 10:23] LABS: ALBUMIN 2.4 g/dl (3.4-5.0); CREATININE 1.2 mg/dL (0.55-1.3)
[2021-06-27 10:24] LABS: PHOSPHOROUS 3.1 mg/dL (2.5-4.9)
[2021-06-27 10:25] LABS: BILIRUBIN,TOTAL 0.8 mg/dL (0.2-1)
[2021-06-27] MEDS: POLYETHYLENE GLYCOL (HEALTHYLAX) 3350 17 GM PACKET PO SCH ×2 (10:28→21:01)
[2021-06-27] MEDS: CARVEDILOL 6.25 MG TABLET (FP) PO SCH ×2 (10:28→21:01)
[2021-06-27] MEDS: ESCITALOPRAM OXALATE 10 MG TABLET PO SCH (10:30)
[2021-06-27] MEDS ORDERED: FUROSEMIDE 40 MG TABLET (FP) PO ONE (11:19)
[2021-06-27] MEDS: ACETAMINOPHEN 325 MG TABLET (FP) PO PRN (12:46)
[2021-06-27] MEDS ORDERED: MAG HYDROX/AL HYDROX/SIMETH 30 ML UNIT-DOSE CUP PO ONE (20:17)
[2021-06-27] MEDS: ZOLPIDEM TARTRATE 5 MG TABLET PO PRN (21:01)
[2021-06-27] MEDS: INSULIN (LEVEMIR) 100 UNITS/ML UNITS SQ SCH (21:01)
[2021-06-28] MEDS: LOSARTAN POTASSIUM 50 MG TABLET PO SCH (06:19)
[2021-06-28] MEDS: INSULIN SLIDING SCALE (NOVOLOG) 1 VIAL SQ SCH ×4 (06:19→21:44)
[2021-06-28] MEDS: CARVEDILOL 6.25 MG TABLET (FP) PO SCH ×2 (09:34→21:45)
[2021-06-28] MEDS: POLYETHYLENE GLYCOL (HEALTHYLAX) 3350 17 GM PACKET PO SCH ×2 (09:35→21:45)
[2021-06-28] MEDS: ESCITALOPRAM OXALATE 10 MG TABLET PO SCH (09:35)
[2021-06-28] MEDS: ACETAMINOPHEN 325 MG TABLET (FP) PO PRN (12:33)
[2021-06-28 12:39] LABS: BASO % 2.1 % (0-2.0); EOS % 1.7 % (0-4.5); HEMATOCRIT 31.7 % (32.4-45.2); HEMOGLOBIN 10.8 GM/dL (10.7-15.3); LYMPH % 25.3 % (8-40); MCH 31.7 pg (25.7-33.7); MCHC 34.1 g/dl (32.0-36.0); MEAN CELL VOLUME 92.9 fl (80-96); MEAN PLT VOLUME 8.3 fl (7.5-11.1); MONO % 14.3 % (3.8-10.2); NEUT % 56.6 % (42.8-82.8); PLATELET COUNT 286 10^3/uL (134-434); RBC 3.42 M/mm3 (3.60-5.2); RDW 16.2 % (11.6-15.6); WHITE BLOOD COUNT 7.9 K/mm3 (4.0-10.0)
[2021-06-28 12:58] LABS: ALBUMIN 2.4 g/dl (3.4-5.0); CALCIUM 8.8 mg/dL (8.5-10.1)
[2021-06-28 12:59] LABS: BLOOD UREA NITROGEN 10.3 mg/dL (7-18); MAGNESIUM 2.1 mg/dL (1.8-2.4)
[2021-06-28 13:03] LABS: BILIRUBIN,TOTAL 0.7 mg/dL (0.2-1); TOT PROT 5.9 g/dl (6.4-8.2)
[2021-06-28] MEDS ORDERED: PT OWN MED DRAWER 7, Y5N ONE ×4 (13:53→21:42)
[2021-06-28] MEDS ORDERED: BUDESONIDE 3 MG PO SCH (14:00)
[2021-06-28] MEDS: BUDESONIDE 3 MG PO SCH ×2 (15:09→21:49)
[2021-06-28 16:56] LABS: BF WBC & OTHER NUCLEATED CELLS 189 /mm3
[2021-06-28 17:59] LABS: BODY FLUID MACROPHAGES 58 %; BODY FLUID MONOCYTE 3 %
[2021-06-28] MEDS: INSULIN (LEVEMIR) 100 UNITS/ML UNITS SQ SCH (21:43)
[2021-06-28] MEDS: ZOLPIDEM TARTRATE 5 MG TABLET PO PRN (21:56)
[2021-06-29] MEDS: LOSARTAN POTASSIUM 50 MG TABLET PO SCH (06:25)
[2021-06-29] MEDS: BUDESONIDE 3 MG PO SCH ×3 (06:26→21:05)
[2021-06-29] MEDS: INSULIN SLIDING SCALE (NOVOLOG) 1 VIAL SQ SCH ×4 (06:26→21:10)
[2021-06-29] MEDS ORDERED: FUROSEMIDE 20 MG TABLET (FP) PO SCH (10:00)
[2021-06-29] MEDS: ESCITALOPRAM OXALATE 10 MG TABLET PO SCH ×2 (10:00→10:16)
[2021-06-29] MEDS: CARVEDILOL 6.25 MG TABLET (FP) PO SCH ×2 (10:16→21:05)
[2021-06-29] MEDS: POLYETHYLENE GLYCOL (HEALTHYLAX) 3350 17 GM PACKET PO SCH ×2 (10:17→21:11)
[2021-06-29 12:10] LABS: BASO % 0.3 % (0-2.0); HEMATOCRIT 32.9 % (32.4-45.2); HEMOGLOBIN 10.8 GM/dL (10.7-15.3); LYMPH % 17.9 % (8-40); MCH 31.5 pg (25.7-33.7); MEAN CELL VOLUME 95.6 fl (80-96); MONO % 10.4 % (3.8-10.2); NEUT % 71.4 % (42.8-82.8); PLATELET COUNT 315 10^3/uL (134-434); RBC 3.44 M/mm3 (3.60-5.2); RDW 16.8 % (11.6-15.6); WHITE BLOOD COUNT 8.1 K/mm3 (4.0-10.0)
[2021-06-29 12:34] LABS: CALCIUM 8.8 mg/dL (8.5-10.1)
[2021-06-29 12:35] LABS: ALBUMIN 2.5 g/dl (3.4-5.0); BLOOD UREA NITROGEN 11.9 mg/dL (7-18); MAGNESIUM 2.2 mg/dL (1.8-2.4)
[2021-06-29 12:38] LABS: CREATININE 0.9 mg/dL (0.55-1.3)
[2021-06-29 12:39] LABS: BILIRUBIN,TOTAL 0.7 mg/dL (0.2-1); TOT PROT 6.3 g/dl (6.4-8.2)
[2021-06-29] MEDS: levETIRAcetam 250 MG TABLET PO SCH ×2 (14:15→21:05)
[2021-06-29] MEDS ORDERED: INSULIN SLIDING SCALE (NOVOLOG) 1 VIAL SQ ONE (17:29)
[2021-06-29] MEDS: ACETAMINOPHEN 325 MG TABLET (FP) PO PRN (21:06)
[2021-06-29] MEDS: ZOLPIDEM TARTRATE 5 MG TABLET PO PRN (21:08)
[2021-06-29] MEDS: INSULIN (LEVEMIR) 100 UNITS/ML UNITS SQ SCH (21:10)
[2021-06-29] MEDS ORDERED: PT OWN MED DRAWER 7, Y5N ONE (21:59)
[2021-06-30] MEDS: BUDESONIDE 3 MG PO SCH ×3 (06:43→21:48)
[2021-06-30] MEDS: INSULIN SLIDING SCALE (NOVOLOG) 1 VIAL SQ SCH ×4 (06:43→21:51)
[2021-06-30] MEDS: LOSARTAN POTASSIUM 50 MG TABLET PO SCH (06:44)
[2021-06-30] MEDS: CARVEDILOL 6.25 MG TABLET (FP) PO SCH (10:22)
[2021-06-30] MEDS: levETIRAcetam 250 MG TABLET PO SCH ×2 (10:22→21:48)
[2021-06-30] MEDS: SPIRONOLACTONE 25 MG TABLET PO SCH (10:22)
[2021-06-30] MEDS: ESCITALOPRAM OXALATE 10 MG TABLET PO SCH (10:30)
[2021-06-30] MEDS: POLYETHYLENE GLYCOL (HEALTHYLAX) 3350 17 GM PACKET PO SCH ×2 (10:31→21:48)
[2021-06-30 13:06] LABS: BODY FLUID ALBUMIN 0.4 g/dL (Not Estab.)
[2021-06-30 13:51] LABS: BASO % 0.1 % (0-2.0); EOS % 0.1 % (0-4.5); HEMATOCRIT 30.3 % (32.4-45.2); LYMPH % 16.2 % (8-40); MCH 31.4 pg (25.7-33.7); MEAN CELL VOLUME 95.3 fl (80-96); MEAN PLT VOLUME 8.6 fl (7.5-11.1); MONO % 7.7 % (3.8-10.2); NEUT % 75.9 % (42.8-82.8); PLATELET COUNT 310 10^3/uL (134-434); RBC 3.18 M/mm3 (3.60-5.2); RDW 16.3 % (11.6-15.6); WHITE BLOOD COUNT 8.1 K/mm3 (4.0-10.0)
[2021-06-30 14:11] LABS: CALCIUM 8.5 mg/dL (8.5-10.1)
[2021-06-30 14:12] LABS: ALBUMIN 2.2 g/dl (3.4-5.0); BLOOD UREA NITROGEN 10.4 mg/dL (7-18)
[2021-06-30 14:15] LABS: CREATININE 1.1 mg/dL (0.55-1.3)
[2021-06-30 14:17] LABS: BILIRUBIN,TOTAL 0.5 mg/dL (0.2-1); TOT PROT 5.9 g/dl (6.4-8.2)
[2021-06-30] MEDS ORDERED: INSULIN (LEVEMIR) 100 UNITS/ML UNITS SQ SCH (18:01)
[2021-06-30] MEDS ORDERED: INSULIN SLIDING SCALE (NOVOLOG) 1 VIAL SQ ONE (18:14)
[2021-06-30] MEDS: FUROSEMIDE 40 MG TABLET (FP) PO SCH (18:32)
[2021-06-30] MEDS ORDERED: POTASSIUM CHLORIDE TABS 20 MEQ TABLET.ER (FP) PO ONE (21:20)
[2021-06-30] MEDS ORDERED: PT OWN MED DRAWER 7, Y5N ONE ×2 (21:45→21:57)
[2021-06-30] MEDS: CARVEDILOL 12.5 MG TABLET (FP) PO SCH (21:48)
[2021-06-30] MEDS: ZOLPIDEM TARTRATE 5 MG TABLET PO PRN (21:57)
[2021-07-01] MEDS ORDERED: PT OWN MED DRAWER 7, Y5N ONE ×4 (05:55→21:01)
[2021-07-01] MEDS: LOSARTAN POTASSIUM 50 MG TABLET PO SCH (06:08)
[2021-07-01] MEDS: BUDESONIDE 3 MG PO SCH ×3 (06:08→21:03)
[2021-07-01] MEDS: INSULIN SLIDING SCALE (NOVOLOG) 1 VIAL SQ SCH ×4 (06:09→21:05)
[2021-07-01] MEDS: CARVEDILOL 12.5 MG TABLET (FP) PO SCH ×2 (10:16→21:04)
[2021-07-01] MEDS: SPIRONOLACTONE 25 MG TABLET PO SCH (10:16)
[2021-07-01] MEDS: levETIRAcetam 250 MG TABLET PO SCH ×2 (10:16→21:04)
[2021-07-01] MEDS: POLYETHYLENE GLYCOL (HEALTHYLAX) 3350 17 GM PACKET PO SCH ×2 (10:17→21:04)
[2021-07-01] MEDS: FUROSEMIDE 40 MG TABLET (FP) PO SCH (10:17)
[2021-07-01] MEDS: ESCITALOPRAM OXALATE 10 MG TABLET PO SCH (10:24)
[2021-07-01] MEDS ORDERED: ACETAMINOPHEN 325 MG TABLET (FP) PO ONE (15:26)
[2021-07-01] MEDS: INSULIN (LEVEMIR) 100 UNITS/ML UNITS SQ SCH (21:04)
[2021-07-01] MEDS: ZOLPIDEM TARTRATE 5 MG TABLET PO PRN (21:04)
[2021-07-02] MEDS: INSULIN SLIDING SCALE (NOVOLOG) 1 VIAL SQ SCH ×4 (06:25→22:33)
[2021-07-02] MEDS ORDERED: PT OWN MED DRAWER 7, Y5N ONE ×3 (06:28→15:21)
[2021-07-02] MEDS: BUDESONIDE 3 MG PO SCH ×3 (06:32→22:34)
[2021-07-02] MEDS: LOSARTAN POTASSIUM 50 MG TABLET PO SCH (06:32)
[2021-07-02 08:47] LABS: BASO % 0.4 % (0-2.0); EOS % 0.1 % (0-4.5); HEMATOCRIT 28.7 % (32.4-45.2); HEMOGLOBIN 9.7 GM/dL (10.7-15.3); LYMPH % 20.1 % (8-40); MCHC 33.9 g/dl (32.0-36.0); MEAN CELL VOLUME 94.6 fl (80-96); MEAN PLT VOLUME 8.9 fl (7.5-11.1); MONO % 11.2 % (3.8-10.2); NEUT % 68.2 % (42.8-82.8); PLATELET COUNT 311 10^3/uL (134-434); RBC 3.03 M/mm3 (3.60-5.2); RDW 16.4 % (11.6-15.6); WHITE BLOOD COUNT 10.1 K/mm3 (4.0-10.0)
[2021-07-02 09:35] LABS: ALBUMIN 2.3 g/dl (3.4-5.0); BLOOD UREA NITROGEN 11.8 mg/dL (7-18); CALCIUM 8.4 mg/dL (8.5-10.1)
[2021-07-02 09:40] LABS: BILIRUBIN,TOTAL 0.5 mg/dL (0.2-1); TOT PROT 5.8 g/dl (6.4-8.2)
[2021-07-02] MEDS: POLYETHYLENE GLYCOL (HEALTHYLAX) 3350 17 GM PACKET PO SCH ×2 (09:49→22:40)
[2021-07-02] MEDS: FUROSEMIDE 40 MG TABLET (FP) PO SCH (09:49)
[2021-07-02] MEDS: SPIRONOLACTONE 25 MG TABLET PO SCH (09:50)
[2021-07-02] MEDS: ESCITALOPRAM OXALATE 10 MG TABLET PO SCH (09:50)
[2021-07-02] MEDS: levETIRAcetam 250 MG TABLET PO SCH ×2 (09:51→22:34)
[2021-07-02] MEDS: CARVEDILOL 12.5 MG TABLET (FP) PO SCH ×2 (09:51→22:34)
[2021-07-02 12:33] VITALS: BMI 32.2
[2021-07-02] MEDS ORDERED: ACETAMINOPHEN 325 MG TABLET (FP) PO ONE (12:45)
[2021-07-02] MEDS ORDERED: POTASSIUM CHLORIDE TABS 20 MEQ TABLET.ER (FP) PO ONE (13:04)
[2021-07-02] MEDS: FUROSEMIDE 40 MG/4 ML INJECTABLE VIAL IVPUSH SCH (16:23)
[2021-07-02] MEDS ORDERED: PANTOPRAZOLE 40 MG TABLET PO ONE (18:35)
[2021-07-02] MEDS: INSULIN (LEVEMIR) 100 UNITS/ML UNITS SQ SCH (22:31)
[2021-07-02] MEDS: ZOLPIDEM TARTRATE 5 MG TABLET PO PRN (22:42)
[2021-07-03] MEDS: INSULIN SLIDING SCALE (NOVOLOG) 1 VIAL SQ SCH ×2 (07:11→11:15)
[2021-07-03] MEDS: LOSARTAN POTASSIUM 50 MG TABLET PO SCH (07:12)
[2021-07-03] MEDS: BUDESONIDE 3 MG PO SCH ×3 (07:12→13:14)
[2021-07-03] MEDS: levETIRAcetam 250 MG TABLET PO SCH (09:31)
[2021-07-03] MEDS: POLYETHYLENE GLYCOL (HEALTHYLAX) 3350 17 GM PACKET PO SCH (09:31)
[2021-07-03] MEDS: CARVEDILOL 12.5 MG TABLET (FP) PO SCH (09:31)
[2021-07-03] MEDS: SPIRONOLACTONE 25 MG TABLET PO SCH (09:31)
[2021-07-03] MEDS: FUROSEMIDE 40 MG/4 ML INJECTABLE VIAL IVPUSH SCH (09:32)
[2021-07-03] MEDS: ESCITALOPRAM OXALATE 10 MG TABLET PO SCH (09:32)
[2021-07-03 10:53] LABS: BASO % 0.4 % (0-2.0); EOS % 0.1 % (0-4.5); HEMATOCRIT 30.6 % (32.4-45.2); HEMOGLOBIN 10.3 GM/dL (10.7-15.3); LYMPH % 14.7 % (8-40); MCH 31.8 pg (25.7-33.7); MCHC 33.5 g/dl (32.0-36.0); MEAN CELL VOLUME 94.9 fl (80-96); MEAN PLT VOLUME 8.8 fl (7.5-11.1); MONO % 11.9 % (3.8-10.2); NEUT % 72.9 % (42.8-82.8); PLATELET COUNT 331 10^3/uL (134-434); RBC 3.23 M/mm3 (3.60-5.2); RDW 16.5 % (11.6-15.6); WHITE BLOOD COUNT 9.9 K/mm3 (4.0-10.0)
[2021-07-03 11:16] LABS: ALBUMIN 2.6 g/dl (3.4-5.0); BLOOD UREA NITROGEN 12.8 mg/dL (7-18); CALCIUM 8.8 mg/dL (8.5-10.1)
[2021-07-03 11:19] LABS: CREATININE 1.1 mg/dL (0.55-1.3)
[2021-07-03 11:20] LABS: TOT PROT 6.5 g/dl (6.4-8.2)
[2021-07-03 11:26] LABS: BILIRUBIN,TOTAL 0.6 mg/dL (0.2-1)
[2021-07-03 12:26] VITALS: BP 145/64; PULSE 70; TEMP 98.1
[2021-07-03] MEDS ORDERED: PT OWN MED DRAWER 7, Y5N ONE (13:12)
[2021-07-04] MEDS ORDERED: FUROSEMIDE 40 MG TABLET (FP) PO SCH (10:00)
== END 2021-07-03 13:32 | disposition home or self-care (01) | DRG 442 ==
LOC: JER 13:05 → JERBED 19:48 → J5S 06-26 18:48
PROVIDERS: ATTEND Nurse Practitioner Acute Care
PROC: 0W9G3ZX Drainage of Peritoneal Cavity, Percutaneous Approach, Diagnostic (ICD-10-PCS; principal; 2021-06-28)
PROC: BW40ZZZ Ultrasonography of Abdomen (ICD-10-PCS; 2021-06-28)
DX: K76.6 Portal hypertension (principal); R18.8 Other ascites; N17.9 Acute kidney failure, unspecified; R19.7 Diarrhea, unspecified; K75.4 Autoimmune hepatitis; K74.60 Unspecified cirrhosis of liver; E11.65 Type 2 diabetes mellitus with hyperglycemia; R07.89 Other chest pain
CPT/HCPCS: 36415; 71045-TC-FY; 71046-TC-FY; 74176-TC; 76775-TC; 76942-TC; 80048; 80053; 80076; 81003; 81015; 82010; 82042; 82150; 82465; 82550; 82570; 82803; 82945; 82962; 83036; 83605; 83615; 83690; 83735; 83880; 83986; 84100; 84156; 84157; 84478; 84484; 85025; 85610; 86140; 87040; 87045; 87046; 87070; 87075; 87086; 87102; 87116; 87177; 87186; 87205; 87206; 87209; 87210; 87324; 88108; 88305-TC; 93005; 93010; 93306-TC; 93970-TC; 93976; 94010; 96361; 96365; 96367; 96372; 97116-GP; 97162-GP; 99285-25; C9803; G0378; J0131; J1644; U0003; U0005

== ENCOUNTER 2021-09-13 14:45 | Inpatient (IN) | payer OTHER, MEDICARE ==
[2021-09-13 15:47] LABS: URINE APPEARANCE CLEAR; URINE BILIRUBIN NEGATIVE (NEGATIVE); URINE COLOR YELLOW; URINE GLUCOSE (UA) 1+ (NEGATIVE); URINE KETONE NEGATIVE (NEGATIVE); URINE LEUK ESTERASE NEGATIVE (NEGATIVE); URINE NITRITE NEGATIVE (NEGATIVE); URINE PROTEIN NEGATIVE (NEGATIVE); URINE UROBILINOGEN 0.2 mg/dL (0.2-1.0)
[2021-09-13 16:31] LABS: BASO % 0.7 % (0-2.0); EOS % 0.1 % (0-4.5); HEMATOCRIT 29.2 % (32.4-45.2); HEMOGLOBIN 9.7 GM/dL (10.7-15.3); MCHC 33.3 g/dl (32.0-36.0); MEAN CELL VOLUME 90.1 fl (80-96); MEAN PLT VOLUME 8.2 fl (7.5-11.1); MONO % 31.1 % (3.8-10.2); NEUT % 40.1 % (42.8-82.8); PLATELET COUNT 592 10^3/uL (134-434); RBC 3.24 M/mm3 (3.60-5.2); RDW 17.5 % (11.6-15.6); WHITE BLOOD COUNT 9.8 K/mm3 (4.0-10.0)
[2021-09-13 16:50] LABS: CHLORIDE 108 mmol/L (98-107); SODIUM 141 mmol/L (136-145)
[2021-09-13 16:52] LABS: CALCIUM 8.8 mg/dL (8.5-10.1)
[2021-09-13 16:53] LABS: ALBUMIN 2.2 g/dl (3.4-5.0); ANION GAP 8 MMOL/L (8-16); BLOOD UREA NITROGEN 13.5 mg/dL (7-18); CO2 24 mmol/L (21-32); GLUCOSE,RANDOM 117 mg/dL (74-106); MAGNESIUM 2.2 mg/dL (1.8-2.4)
[2021-09-13 16:56] LABS: CREATININE 1.2 mg/dL (0.55-1.3); PHOSPHOROUS 3.7 mg/dL (2.5-4.9); SGOT/AST 50 U/L (15-37); SGPT/ALT 18 U/L (13-61)
[2021-09-13 16:58] LABS: BILIRUBIN,TOTAL 0.4 mg/dL (0.2-1); TOT PROT 7.3 g/dl (6.4-8.2)
[2021-09-13 16:59] LABS: ALK PHOS 251 U/L (45-117)
[2021-09-13 19:03] LABS: ANISOCYTOSIS 1+; MACROCYTOSIS 1+; PLATELET ESTIMATE INCREASED; TARGET CELLS 1+
[2021-09-13] MEDS ORDERED: DEXTROSE 50%-WATER - 25 GM/50 ML VIAL IVPUSH ONE (20:13)
[2021-09-13] MEDS ORDERED: LOSARTAN POTASSIUM 50 MG TABLET ONE (20:42)
[2021-09-13] MEDS: LOSARTAN POTASSIUM 50 MG TABLET PO SCH (21:38)
[2021-09-13] MEDS ORDERED: levETIRAcetam 500 MG TABLET (FP) PO ONE (21:44)
[2021-09-13] MEDS: levETIRAcetam 500 MG TABLET (FP) PO SCH (21:49)
[2021-09-13] MEDS: INSULIN SLIDING SCALE (NOVOLOG) 1 VIAL SQ SCH (21:50)
[2021-09-13] MEDS ORDERED: levETIRAcetam 500 MG TABLET (FP) PO SCH (22:00)
[2021-09-14] MEDS: INSULIN SLIDING SCALE (NOVOLOG) 1 VIAL SQ SCH ×4 (06:24→22:16)
[2021-09-14] MEDS: LOSARTAN POTASSIUM 50 MG TABLET PO SCH (06:43)
[2021-09-14 08:24] LABS: HEMOGLOBIN 8.7 GM/dL (10.7-15.3); MCH 29.1 pg (25.7-33.7); MCHC 32.1 g/dl (32.0-36.0); MEAN CELL VOLUME 90.7 fl (80-96); MEAN PLT VOLUME 7.7 fl (7.5-11.1); PLATELET COUNT 517 10^3/uL (134-434); RBC 2.98 M/mm3 (3.60-5.2); RDW 17.4 % (11.6-15.6); WHITE BLOOD COUNT 8.3 K/mm3 (4.0-10.0)
[2021-09-14] MEDS ORDERED: DEXTROSE 50%-WATER - 25 GM/50 ML VIAL IVPUSH PRN (08:25)
[2021-09-14 08:50] LABS: CALCIUM 8.5 mg/dL (8.5-10.1)
[2021-09-14 08:51] LABS: ALBUMIN 1.9 g/dl (3.4-5.0); BLOOD UREA NITROGEN 10.2 mg/dL (7-18)
[2021-09-14 08:52] LABS: CREATININE 1.1 mg/dL (0.55-1.3)
[2021-09-14 08:53] LABS: BILIRUBIN,TOTAL 0.5 mg/dL (0.2-1); TOT PROT 6.4 g/dl (6.4-8.2)
[2021-09-14 09:17] LABS: ANISOCYTOSIS 0; HELMET CELLS 0; HOWELL-JOLLY BODIES 0; MACROCYTOSIS 0; OVALOCYTE 0; PLATELET ESTIMATE INCREASED; ROULEAU 0; SICKELED CELLS 0; TARGET CELLS 0; TEAR DROP CELLS 0; TOXIC GRANULATION 0
[2021-09-14] MEDS: CARVEDILOL 6.25 MG TABLET (FP) PO SCH (09:46)
[2021-09-14] MEDS: SPIRONOLACTONE 25 MG TABLET PO SCH (09:46)
[2021-09-14] MEDS: FUROSEMIDE 40 MG TABLET (FP) PO SCH (09:46)
[2021-09-14] MEDS: ENOXAPARIN NA (PORCINE) 40 MG/0.4 ML DISP.SYRIN SQ SCH (09:46)
[2021-09-14] MEDS: levETIRAcetam 500 MG TABLET (FP) PO SCH (09:46)
[2021-09-14 14:42] LABS: EPI CELLS 25 /uL (0-25.1); HYALINE CASTS 1 /uL (0-3.1); URINE APPEARANCE CLEAR; URINE BACTERIA 90 /uL (0-1359); URINE BILIRUBIN NEGATIVE (NEGATIVE); URINE COLOR YELLOW; URINE GLUCOSE (UA) NEGATIVE (NEGATIVE); URINE KETONE NEGATIVE (NEGATIVE); URINE LEUK ESTERASE NEGATIVE (NEGATIVE); URINE NITRITE NEGATIVE (NEGATIVE); URINE PROTEIN 2+ (NEGATIVE); URINE RBC 6 /uL (0-23.9); URINE WBC 16 /uL (0-25.8)
[2021-09-14 14:52] LABS: OPIATES, URI NEGATIVE (NEGATIVE); PHENCYCLIDINE,URINE NEGATIVE (NEGATIVE)
[2021-09-14 14:53] LABS: METHADONE, UR NEGATIVE (NEGATIVE)
[2021-09-14 14:57] LABS: URINE BARBITURATES NEGATIVE (NEGATIVE)
[2021-09-14 14:58] LABS: COCAINE, UR NEGATIVE (NEGATIVE); URINE AMPHETAMINES NEGATIVE (NEGATIVE); URINE BENZODIAZEPINES NEGATIVE (NEGATIVE)
[2021-09-14] MEDS: levETIRAcetam 250 MG TABLET PO SCH (22:15)
[2021-09-14] MEDS: ZOLPIDEM TARTRATE 5 MG TABLET PO PRN (23:08)
[2021-09-15] MEDS ORDERED: DEXTROSE 50%-WATER 25 GM/50 ML DISP.SYRIN IVPUSH PRN (00:10)
[2021-09-15] MEDS: LOSARTAN POTASSIUM 50 MG TABLET PO SCH (06:13)
[2021-09-15] MEDS: INSULIN SLIDING SCALE (NOVOLOG) 1 VIAL SQ SCH ×4 (06:14→21:53)
[2021-09-15] MEDS: DONEPEZIL HCL 5 MG TABLET (FP) PO SCH (09:51)
[2021-09-15] MEDS: CARVEDILOL 6.25 MG TABLET (FP) PO SCH (09:51)
[2021-09-15] MEDS: SPIRONOLACTONE 25 MG TABLET PO SCH (09:51)
[2021-09-15] MEDS: ENOXAPARIN NA (PORCINE) 40 MG/0.4 ML DISP.SYRIN SQ SCH (09:52)
[2021-09-15] MEDS: levETIRAcetam 250 MG TABLET PO SCH ×2 (09:52→21:47)
[2021-09-15] MEDS: FUROSEMIDE 40 MG TABLET (FP) PO SCH (09:52)
[2021-09-15] MEDS ORDERED: LACTULOSE 20 GM/30 ML UDC (FOR ORAL USE ONLY) PO ONE (10:45)
[2021-09-15] MEDS ORDERED: INSULIN (NOVOLOG) ASPART 100 UNITS/ML 10ML VIAL ONE ×2 (11:23→20:58)
[2021-09-15] MEDS: ZOLPIDEM TARTRATE 5 MG TABLET PO PRN (21:47)
[2021-09-16] MEDS: LOSARTAN POTASSIUM 50 MG TABLET PO SCH (06:46)
[2021-09-16] MEDS: INSULIN SLIDING SCALE (NOVOLOG) 1 VIAL SQ SCH ×3 (06:47→17:50)
[2021-09-16 09:14] LABS: HEMATOCRIT 25.4 % (32.4-45.2); HEMOGLOBIN 8.2 GM/dL (10.7-15.3); MCH 29.4 pg (25.7-33.7); MCHC 32.1 g/dl (32.0-36.0); MEAN CELL VOLUME 91.5 fl (80-96); MEAN PLT VOLUME 8.1 fl (7.5-11.1); PLATELET COUNT 572 10^3/uL (134-434); RBC 2.77 M/mm3 (3.60-5.2); RDW 17.9 % (11.6-15.6); WHITE BLOOD COUNT 10.7 K/mm3 (4.0-10.0)
[2021-09-16 09:40] LABS: ALBUMIN 1.9 g/dl (3.4-5.0); CALCIUM 8.7 mg/dL (8.5-10.1)
[2021-09-16 09:41] LABS: BLOOD UREA NITROGEN 11.4 mg/dL (7-18)
[2021-09-16 09:44] LABS: CREATININE 1.1 mg/dL (0.55-1.3)
[2021-09-16 09:45] LABS: BILIRUBIN,TOTAL 0.6 mg/dL (0.2-1); TOT PROT 6.5 g/dl (6.4-8.2)
[2021-09-16] MEDS: CARVEDILOL 6.25 MG TABLET (FP) PO SCH (09:56)
[2021-09-16] MEDS: DONEPEZIL HCL 5 MG TABLET (FP) PO SCH (09:56)
[2021-09-16] MEDS: SPIRONOLACTONE 25 MG TABLET PO SCH (09:57)
[2021-09-16] MEDS: ENOXAPARIN NA (PORCINE) 40 MG/0.4 ML DISP.SYRIN SQ SCH (09:57)
[2021-09-16] MEDS: levETIRAcetam 250 MG TABLET PO SCH (09:57)
[2021-09-16] MEDS: FUROSEMIDE 40 MG TABLET (FP) PO SCH (09:57)
[2021-09-16 12:01] LABS: ANISOCYTOSIS 1+; MACROCYTOSIS 1+; PLATELET ESTIMATE INCREASED; ROULEAU 1+
[2021-09-16] MEDS ORDERED: ACETAMINOPHEN 325 MG TABLET (FP) PO PRN (12:37)
[2021-09-16] MEDS ORDERED: LACTULOSE 20 GM/30 ML UDC (FOR ORAL USE ONLY) PO ONE (13:30)
[2021-09-16] MEDS ORDERED: MELATONIN 5 MG TABLETS PO PRN (13:31)
[2021-09-16] MEDS ORDERED: cefTRIAXone SODIUM 1 GM VIAL ONE (15:00)
[2021-09-16] MEDS ORDERED: DEXTROSE 5%-WATER - 50 ML IVPB ONE (15:00)
[2021-09-16] MEDS: CEFTRIAXONE 1 GM in DEXTROSE 5%-WATER - 50 ML IVPB SCH (15:35)
[2021-09-16] MEDS: ACETAMINOPHEN 325 MG TABLET (FP) PO PRN (20:59)
[2021-09-16] MEDS: levETIRAcetam 500 MG TABLET (FP) PO SCH (21:00)
[2021-09-17] MEDS: INSULIN SLIDING SCALE (NOVOLOG) 1 VIAL SQ SCH ×2 (06:07→17:31)
[2021-09-17] MEDS: LOSARTAN POTASSIUM 50 MG TABLET PO SCH (06:07)
[2021-09-17 08:56] LABS: HEMATOCRIT 27.1 % (32.4-45.2); HEMOGLOBIN 8.7 GM/dL (10.7-15.3); MCH 29.1 pg (25.7-33.7); MEAN CELL VOLUME 90.9 fl (80-96); MEAN PLT VOLUME 7.8 fl (7.5-11.1); PLATELET COUNT 509 10^3/uL (134-434); RBC 2.98 M/mm3 (3.60-5.2); RDW 17.9 % (11.6-15.6); WHITE BLOOD COUNT 9.8 K/mm3 (4.0-10.0)
[2021-09-17 09:25] LABS: CALCIUM 8.8 mg/dL (8.5-10.1)
[2021-09-17 09:26] LABS: ALBUMIN 1.9 g/dl (3.4-5.0); BLOOD UREA NITROGEN 10.3 mg/dL (7-18); MAGNESIUM 1.9 mg/dL (1.8-2.4)
[2021-09-17 09:30] LABS: BILIRUBIN,TOTAL 0.5 mg/dL (0.2-1); TOT PROT 6.5 g/dl (6.4-8.2)
[2021-09-17] MEDS ORDERED: DEXTROSE 5%-WATER - 50 ML IVPB ONE (10:09)
[2021-09-17] MEDS ORDERED: cefTRIAXone SODIUM 1 GM VIAL ONE (10:09)
[2021-09-17] MEDS: levETIRAcetam 500 MG TABLET (FP) PO SCH ×2 (10:18→22:12)
[2021-09-17] MEDS: CARVEDILOL 6.25 MG TABLET (FP) PO SCH (10:19)
[2021-09-17] MEDS: ENOXAPARIN NA (PORCINE) 40 MG/0.4 ML DISP.SYRIN SQ SCH (10:19)
[2021-09-17] MEDS: FUROSEMIDE 40 MG TABLET (FP) PO SCH (10:19)
[2021-09-17] MEDS: SPIRONOLACTONE 25 MG TABLET PO SCH (10:19)
[2021-09-17] MEDS: CEFTRIAXONE 1 GM in DEXTROSE 5%-WATER - 50 ML IVPB SCH (10:19)
[2021-09-17] MEDS: DONEPEZIL HCL 5 MG TABLET (FP) PO SCH (10:19)
[2021-09-17] MEDS: ACETAMINOPHEN 325 MG TABLET (FP) PO PRN (10:21)
[2021-09-17] MEDS: LACTULOSE 20 GM/30 ML UDC (FOR ORAL USE ONLY) PO SCH ×2 (12:40→22:12)
[2021-09-17] MEDS: MELATONIN 5 MG TABLETS PO PRN (22:12)
[2021-09-18] MEDS: metFORMIN HCL 500 MG TABLET (FP) PO SCH ×2 (06:01→17:33)
[2021-09-18] MEDS: LOSARTAN POTASSIUM 50 MG TABLET PO SCH (06:01)
[2021-09-18] MEDS: INSULIN SLIDING SCALE (NOVOLOG) 1 VIAL SQ SCH ×2 (08:15→16:18)
[2021-09-18 08:48] LABS: BASO % 0.5 % (0-2.0); EOS % 0.4 % (0-4.5); HEMATOCRIT 26.8 % (32.4-45.2); HEMOGLOBIN 8.8 GM/dL (10.7-15.3); LYMPH % 9.5 % (8-40); MCH 29.5 pg (25.7-33.7); MCHC 32.8 g/dl (32.0-36.0); MEAN CELL VOLUME 90.2 fl (80-96); MEAN PLT VOLUME 7.7 fl (7.5-11.1); MONO % 12.4 % (3.8-10.2); NEUT % 77.2 % (42.8-82.8); PLATELET COUNT 482 10^3/uL (134-434); RBC 2.97 M/mm3 (3.60-5.2); RDW 17.6 % (11.6-15.6); WHITE BLOOD COUNT 18.8 K/mm3 (4.0-10.0)
[2021-09-18 09:07] LABS: CALCIUM 8.9 mg/dL (8.5-10.1)
[2021-09-18 09:08] LABS: BLOOD UREA NITROGEN 9.7 mg/dL (7-18); MAGNESIUM 1.9 mg/dL (1.8-2.4)
[2021-09-18 09:11] LABS: CREATININE 1.2 mg/dL (0.55-1.3)
[2021-09-18] MEDS ORDERED: cefTRIAXone SODIUM 1 GM VIAL ONE (09:59)
[2021-09-18] MEDS ORDERED: DEXTROSE 5%-WATER - 50 ML IVPB ONE (10:00)
[2021-09-18] MEDS: ACETAMINOPHEN 325 MG TABLET (FP) PO PRN (10:25)
[2021-09-18] MEDS: SPIRONOLACTONE 25 MG TABLET PO SCH (10:29)
[2021-09-18] MEDS: LACTULOSE 20 GM/30 ML UDC (FOR ORAL USE ONLY) PO SCH ×2 (10:29→21:47)
[2021-09-18] MEDS: DONEPEZIL HCL 5 MG TABLET (FP) PO SCH (10:29)
[2021-09-18] MEDS: levETIRAcetam 500 MG TABLET (FP) PO SCH ×2 (10:29→21:44)
[2021-09-18] MEDS: FUROSEMIDE 40 MG TABLET (FP) PO SCH (10:30)
[2021-09-18] MEDS: CEFTRIAXONE 1 GM in DEXTROSE 5%-WATER - 50 ML IVPB SCH (10:30)
[2021-09-18] MEDS: ENOXAPARIN NA (PORCINE) 40 MG/0.4 ML DISP.SYRIN SQ SCH (10:30)
[2021-09-18] MEDS: CARVEDILOL 6.25 MG TABLET (FP) PO SCH (10:30)
[2021-09-18 17:20] VITALS: BMI 26.6
[2021-09-19] MEDS: LOSARTAN POTASSIUM 50 MG TABLET PO SCH (06:57)
[2021-09-19] MEDS: INSULIN SLIDING SCALE (NOVOLOG) 1 VIAL SQ SCH ×2 (06:57→17:17)
[2021-09-19] MEDS: metFORMIN HCL 500 MG TABLET (FP) PO SCH ×2 (06:57→17:17)
[2021-09-19] MEDS ORDERED: INSULIN (NOVOLOG) ASPART 100 UNITS/ML 10ML VIAL ONE (07:02)
[2021-09-19 08:57] LABS: HEMATOCRIT 25.9 % (32.4-45.2); HEMOGLOBIN 8.6 GM/dL (10.7-15.3); MCH 29.9 pg (25.7-33.7); MCHC 33.2 g/dl (32.0-36.0); MEAN CELL VOLUME 90.1 fl (80-96); MEAN PLT VOLUME 7.8 fl (7.5-11.1); PLATELET COUNT 441 10^3/uL (134-434); RBC 2.87 M/mm3 (3.60-5.2); RDW 17.7 % (11.6-15.6); WHITE BLOOD COUNT 8.4 K/mm3 (4.0-10.0)
[2021-09-19 09:10] LABS: CALCIUM 8.8 mg/dL (8.5-10.1)
[2021-09-19 09:14] LABS: ALBUMIN 1.9 g/dl (3.4-5.0); BLOOD UREA NITROGEN 13.6 mg/dL (7-18); CREATININE 1.3 mg/dL (0.55-1.3)
[2021-09-19 09:15] LABS: TOT PROT 6.4 g/dl (6.4-8.2)
[2021-09-19 09:16] LABS: BILIRUBIN,TOTAL 0.4 mg/dL (0.2-1)
[2021-09-19 10:00] LABS: ANISOCYTOSIS 0; HELMET CELLS 0; HOWELL-JOLLY BODIES 0; MACROCYTOSIS 0; OVALOCYTE 0; PLATELET ESTIMATE NORMAL; ROULEAU 0; SICKELED CELLS 0; TARGET CELLS 0; TEAR DROP CELLS 0; TOXIC GRANULATION 0
[2021-09-19] MEDS ORDERED: cefTRIAXone SODIUM 1 GM VIAL ONE (10:12)
[2021-09-19] MEDS ORDERED: DEXTROSE 5%-WATER - 50 ML IVPB ONE (10:13)
[2021-09-19] MEDS: levETIRAcetam 500 MG TABLET (FP) PO SCH ×2 (10:42→22:00)
[2021-09-19] MEDS: FUROSEMIDE 40 MG TABLET (FP) PO SCH (10:42)
[2021-09-19] MEDS: SPIRONOLACTONE 25 MG TABLET PO SCH (10:42)
[2021-09-19] MEDS: ENOXAPARIN NA (PORCINE) 40 MG/0.4 ML DISP.SYRIN SQ SCH (10:43)
[2021-09-19] MEDS: LACTULOSE 20 GM/30 ML UDC (FOR ORAL USE ONLY) PO SCH ×2 (10:43→18:56)
[2021-09-19] MEDS: DONEPEZIL HCL 5 MG TABLET (FP) PO SCH (10:43)
[2021-09-19] MEDS: CARVEDILOL 6.25 MG TABLET (FP) PO SCH (10:43)
[2021-09-19] MEDS: CEFTRIAXONE 1 GM in DEXTROSE 5%-WATER - 50 ML IVPB SCH (10:44)
[2021-09-19] MEDS ORDERED: LACTULOSE 20 GM/30 ML UDC (FOR ORAL USE ONLY) PO SCH (18:21)
[2021-09-19] MEDS: MELATONIN 5 MG TABLETS PO PRN (22:01)
[2021-09-20] MEDS: LACTULOSE 20 GM/30 ML UDC (FOR ORAL USE ONLY) PO SCH (06:24)
[2021-09-20] MEDS: LOSARTAN POTASSIUM 50 MG TABLET PO SCH (06:24)
[2021-09-20] MEDS: metFORMIN HCL 500 MG TABLET (FP) PO SCH ×2 (06:24→17:44)
[2021-09-20] MEDS: INSULIN SLIDING SCALE (NOVOLOG) 1 VIAL SQ SCH ×2 (06:25→17:43)
[2021-09-20 09:10] LABS: HEMATOCRIT 27.4 % (32.4-45.2); HEMOGLOBIN 8.9 GM/dL (10.7-15.3); MCH 29.5 pg (25.7-33.7); MCHC 32.4 g/dl (32.0-36.0); MEAN CELL VOLUME 90.9 fl (80-96); MEAN PLT VOLUME 7.6 fl (7.5-11.1); PLATELET COUNT 481 10^3/uL (134-434); RBC 3.02 M/mm3 (3.60-5.2); RDW 17.6 % (11.6-15.6); WHITE BLOOD COUNT 6.8 K/mm3 (4.0-10.0)
[2021-09-20 09:40] LABS: CALCIUM 9.2 mg/dL (8.5-10.1)
[2021-09-20 09:41] LABS: BLOOD UREA NITROGEN 13.9 mg/dL (7-18)
[2021-09-20 09:44] LABS: CREATININE 1.3 mg/dL (0.55-1.3)
[2021-09-20] MEDS ORDERED: DEXTROSE 5%-WATER - 50 ML IVPB ONE (10:21)
[2021-09-20] MEDS ORDERED: cefTRIAXone SODIUM 1 GM VIAL ONE (10:21)
[2021-09-20] MEDS: FUROSEMIDE 40 MG TABLET (FP) PO SCH (10:30)
[2021-09-20] MEDS: levETIRAcetam 500 MG TABLET (FP) PO SCH (10:31)
[2021-09-20] MEDS: DONEPEZIL HCL 5 MG TABLET (FP) PO SCH (10:32)
[2021-09-20] MEDS: CARVEDILOL 6.25 MG TABLET (FP) PO SCH (10:32)
[2021-09-20] MEDS: SPIRONOLACTONE 25 MG TABLET PO SCH (10:32)
[2021-09-20] MEDS: ENOXAPARIN NA (PORCINE) 40 MG/0.4 ML DISP.SYRIN SQ SCH (10:32)
[2021-09-20 11:17] LABS: ANISOCYTOSIS 2+; MACROCYTOSIS 2+; PLATELET ESTIMATE NORMAL
[2021-09-20] MEDS: CEFTRIAXONE 1 GM in DEXTROSE 5%-WATER - 50 ML IVPB SCH (12:52)
[2021-09-20 16:04] VITALS: BP 113/49; PULSE 72; TEMP 97.9
== END 2021-09-20 19:14 | disposition home or self-care (01) | DRG 100 ==
LOC: JER 14:45 → JERBED 18:32 → INTOOBSV 18:32 → UNDOADMOB 18:32 → JERBED 18:41 → J8W 09-14 01:07 → OBSVTOIN 09-16 13:34
PROVIDERS: ADMIT Internal Medicine; ATTEND Internal Medicine
DX: G40.909 Epilepsy, unspecified, not intractable, without status epilepticus (principal); G93.41 Metabolic encephalopathy; N39.0 Urinary tract infection, site not specified; E11.649 Type 2 diabetes mellitus with hypoglycemia without coma; B18.2 Chronic viral hepatitis C; I10 Essential (primary) hypertension; M54.9 Dorsalgia, unspecified; K64.9 Unspecified hemorrhoids; B96.20 Unspecified Escherichia coli [E. coli] as the cause of diseases classified elsewhere; D72.829 Elevated white blood cell count, unspecified
CPT/HCPCS: 36415; 70450-TC; 71045-TC-FY; 76705-TC; 76775-TC; 80048; 80053; 80177; 80307; 81003; 82140; 82550; 82607; 82746; 82962; 83036; 83735; 84100; 84484; 85025; 85027; 86780; 87040; 87086; 87186; 93005; 93010; 95816; 97116-GP; 97161-GP; 99285-25; C9803; G0378; U0003; U0005

== ENCOUNTER 2022-01-17 04:28 | Inpatient (IN) | payer OTHER, MEDICARE ==
[2022-01-17] MEDS ORDERED: LORazepam 2 MG/ML SDV VIAL IM ONE (04:44)
[2022-01-17] MEDS ORDERED: MIDAZOLAM HCL 5 MG/1 ML Single Dose Vial IVPUSH ONE ×3 (04:44→05:29)
[2022-01-17] MEDS ORDERED: MIDAZOLAM IN 0.9 % SOD.CHLORID 100 MG/100 ML PLAST..BAG IVPB SCH (04:45)
[2022-01-17] MEDS ORDERED: ROCURONIUM BROMIDE 50 MG/5 ML VIAL IV ONE (04:45)
[2022-01-17] MEDS ORDERED: MIDAZOLAM HCL 2 MG/2 ML SINGLE DOSE VIAL IVPUSH ONE ×2 (05:05→05:28)
[2022-01-17] MEDS ORDERED: MIDAZOLAM IN 0.9 % SOD.CHLORID 1 MG/1 ML PLAST..BAG ONE (05:08)
[2022-01-17] MEDS ORDERED: MIDAZOLAM HCL 2 MG/2 ML SINGLE DOSE VIAL ONE (05:29)
[2022-01-17] MEDS: PROPOFOL 1,000,000 MCG/100 ML VIAL IVPB SCH ×2 (05:30→13:07)
[2022-01-17] MEDS ORDERED: VANCOMYCIN 1 GM in D5W (PRE-DOCKED) 1,000 MG/250 ML IVPB ONE (05:35)
[2022-01-17] MEDS ORDERED: PIPERACILLIN/TAZOB 3.375 GM 3.375 GM in DEXTROSE 5%-WATER - 50 ML IVPB ONE (05:35)
[2022-01-17] MEDS ORDERED: ACETAMINOPHEN 1000 MG/100 ML BAG IVPB ONE (05:35)
[2022-01-17] MEDS ORDERED: SODIUM CHLORIDE 2,313 ML IV ONE (05:35)
[2022-01-17 05:42] LABS: BASO % 0.5 % (0-2.0); EOS % 2.7 % (0-4.5); HEMATOCRIT 32.4 % (32.4-45.2); HEMOGLOBIN 10.4 GM/dL (10.7-15.3); LYMPH % 38.1 % (8-40); MCH 28.9 pg (25.7-33.7); MEAN CELL VOLUME 90.3 fl (80-96); MEAN PLT VOLUME 8.2 fl (7.5-11.1); MONO % 12.8 % (3.8-10.2); NEUT % 45.9 % (42.8-82.8); PLATELET COUNT 473 10^3/uL (134-434); RBC 3.59 M/mm3 (3.60-5.2); RDW 18.5 % (11.6-15.6); WHITE BLOOD COUNT 8.1 K/mm3 (4.0-10.0)
[2022-01-17] MEDS ORDERED: ACETAMINOPHEN INJECTION 100 ML IVPB ONE ×2 (05:45→10:01)
[2022-01-17] MEDS ORDERED: PIPERACILLIN/TAZOB 3.375 GM 3.375 GM/50 ML BAG IVPB ONE ×2 (05:46→10:19)
[2022-01-17] MEDS ORDERED: VANCOMYCIN 1 GRAM (PRE-DOCKED) 1,000 MG/250 ML BAG IVPB ONE ×2 (05:46→10:01)
[2022-01-17] MEDS ORDERED: levETIRAcetam 500 MG/5 ML INJECTION VIAL IVPB ONE ×3 (05:52→10:00)
[2022-01-17 05:57] LABS: INR 1.2 (0.83-1.09); PROTHROMBIN TIME (PATIENT) 13.8 SEC (9.7-13.0)
[2022-01-17 05:59] LABS: ACTIVATED PTT 34.6 SECONDS (25.2-36.5)
[2022-01-17 06:05] LABS: CALCIUM 9.3 mg/dL (8.5-10.1)
[2022-01-17 06:06] LABS: ALBUMIN 2.9 g/dl (3.4-5.0); BLOOD UREA NITROGEN 21.3 mg/dL (7-18); MAGNESIUM 2.1 mg/dL (1.8-2.4)
[2022-01-17 06:09] LABS: CREATININE 1.7 mg/dL (0.55-1.3)
[2022-01-17 06:10] LABS: BILIRUBIN,TOTAL 0.6 mg/dL (0.2-1); TOT PROT 8.7 g/dl (6.4-8.2)
[2022-01-17] MEDS ORDERED: ACETAMINOPHEN 1000 MG/100 ML BAG IVPB PRN (06:22)
[2022-01-17] MEDS ORDERED: CISATRACURIUM BESYLATE 200 MG/20 ML VIAL IV ONE (06:22)
[2022-01-17 07:08] LABS: ARTERIAL BLD GAS O2 SATURATION 99.6 % (95-98); ARTERIAL BLOOD GAS BASE EXCESS -5.8 mmol/L (-2-2); ARTERIAL BLOOD GAS PO2 267.5 mmHg (80-100); ARTERIAL BLOOD GAS pH 7.302 (7.350-7.450)
[2022-01-17 07:16] LABS: VENT MODE A/C; VENT RATE 12
[2022-01-17 07:20] LABS: LACTIC ACID 9.9 mmol/L (0.4-2.0)
[2022-01-17] MEDS ORDERED: CISATRACURIUM BESYLATE IVPB SCH (07:30)
[2022-01-17] MEDS ORDERED: SODIUM CHLORIDE IVPB SCH (07:30)
[2022-01-17] MEDS ORDERED: CISATRACURIUM BESYLATE 200 MG/20 ML VIAL IV SCH ×2 (07:30→07:32)
[2022-01-17 07:41] LABS: METHADONE, UR NEGATIVE (NEGATIVE); OPIATES, URI NEGATIVE (NEGATIVE); URINE AMPHETAMINES NEGATIVE (NEGATIVE); URINE BARBITURATES NEGATIVE (NEGATIVE)
[2022-01-17 07:42] LABS: COCAINE, UR NEGATIVE (NEGATIVE); PHENCYCLIDINE,URINE NEGATIVE (NEGATIVE); URINE BENZODIAZEPINES POSITIVE (NEGATIVE)
[2022-01-17] MEDS ORDERED: MIDAZOLAM HCL 2 MG/2 ML SINGLE DOSE VIAL IVPUSH PRN (07:44)
[2022-01-17] MEDS ORDERED: MINERAL OIL/PETROLATUM,WHITE 3.5 GM TUBE OU PRN (08:15)
[2022-01-17] MEDS ORDERED: VECURONIUM BROMIDE 100 MG/100 ML BAG IVPB SCH (08:15)
[2022-01-17 08:27] LABS: EPI CELLS 4 /uL (0-25.1); HYALINE CASTS 1 /uL (0-3.1); PH,URINE 7.5 (5.0-8.0); URINE APPEARANCE CLEAR; URINE BACTERIA 3 /uL (0-1359); URINE BILIRUBIN NEGATIVE (NEGATIVE); URINE COLOR YELLOW; URINE GLUCOSE (UA) NEGATIVE (NEGATIVE); URINE KETONE NEGATIVE (NEGATIVE); URINE LEUK ESTERASE NEGATIVE (NEGATIVE); URINE NITRITE NEGATIVE (NEGATIVE); URINE PROTEIN 1+ (NEGATIVE); URINE RBC 9 /uL (0-23.9); URINE UROBILINOGEN 0.2 mg/dL (0.2-1.0); URINE WBC 3 /uL (0-25.8)
[2022-01-17] MEDS: SODIUM CHLORIDE 1,000 ML IV SCH (09:45)
[2022-01-17] MEDS: INSULIN SLIDING SCALE (NOVOLOG) 1 VIAL SQ SCH ×4 (10:00→21:24)
[2022-01-17] MEDS ORDERED: PROPOFOL 1,000,000 MCG/100 ML VIAL ONE (10:01)
[2022-01-17] MEDS: MUPIROCIN 2% TOPICAL OINTMENT FOR DECOLONIZATION NS SCH ×2 (10:34→21:25)
[2022-01-17 10:42] LABS: ARTERIAL BLD GAS O2 SATURATION 98.9 % (95-98); ARTERIAL BLOOD GAS BASE EXCESS -1.6 mmol/L (-2-2); ARTERIAL BLOOD GAS PO2 145.7 mmHg (80-100); ARTERIAL BLOOD GAS pH 7.392 (7.350-7.450)
[2022-01-17 10:43] LABS: ALLENS TEST POSITIVE
[2022-01-17 10:46] LABS: VENT MODE A/C; VENT RATE 12
[2022-01-17] MEDS ORDERED: MIDAZOLAM 100 MG in SODIUM CHLORIDE 100 ML IVPB SCH (11:45)
[2022-01-17] MEDS ORDERED: LORazepam 2 MG/ML SDV VIAL IVPUSH PRN ×2 (12:04→14:31)
[2022-01-17] MEDS ORDERED: SODIUM CHLORIDE 1,000 ML IV STA (14:11)
[2022-01-17] MEDS: HEPARIN NA (PORCINE) 5,000 UNITS/ML 1ML VIAL SQ SCH ×2 (14:33→21:24)
[2022-01-17] MEDS ORDERED: PIPERACILLIN/TAZOBACTAM 3.375 GM VIAL IVPB ONE ×2 (15:33→18:55)
[2022-01-17] MEDS ORDERED: DEXTROSE 5%-WATER - 50 ML IVPB ONE ×2 (15:33→18:55)
[2022-01-17] MEDS: PIPERACILLIN/TAZOB 3.375 GM 3.375 GM in DEXTROSE 5%-WATER - 50 ML IVPB SCH ×2 (15:39→18:56)
[2022-01-17] MEDS: DEXMEDETOMIDINE IN 0.9 % NACL 400 MCG/100 ML VIAL IVPB SCH (16:51)
[2022-01-17] MEDS: levETIRAcetam 500 MG/5 ML INJECTION VIAL IVPB SCH (21:24)
[2022-01-17] MEDS: CHLORHEXIDINE GLUCONATE 4% CLEANSER FOR DECOLONIZATION TP SCH (21:25)
[2022-01-17] MEDS: MIDAZOLAM IN 0.9 % SOD.CHLORID 100 MG/100 ML PLAST..BAG IVPB SCH (23:50)
[2022-01-18] MEDS: PROPOFOL 1,000,000 MCG/100 ML VIAL IVPB SCH ×5 (01:20→21:58)
[2022-01-18] MEDS: PIPERACILLIN/TAZOB 3.375 GM 3.375 GM in DEXTROSE 5%-WATER - 50 ML IVPB SCH ×3 (03:00→17:51)
[2022-01-18] MEDS ORDERED: DEXTROSE 5%-WATER - 50 ML IVPB ONE ×4 (05:21→23:58)
[2022-01-18] MEDS ORDERED: PIPERACILLIN/TAZOBACTAM 3.375 GM VIAL IVPB ONE ×4 (05:21→23:58)
[2022-01-18] MEDS: HEPARIN NA (PORCINE) 5,000 UNITS/ML 1ML VIAL SQ SCH ×3 (05:22→21:41)
[2022-01-18 06:48] LABS: ARTERIAL BLD GAS O2 SATURATION 99.1 % (95-98); ARTERIAL BLOOD GAS BASE EXCESS -4.2 mmol/L (-2-2); ARTERIAL BLOOD GAS PO2 156.8 mmHg (80-100)
[2022-01-18 07:00] LABS: ALLENS TEST POSITIVE
[2022-01-18 07:01] LABS: VENT MODE A/C; VENT RATE 12
[2022-01-18] MEDS: INSULIN SLIDING SCALE (NOVOLOG) 1 VIAL SQ SCH ×4 (07:12→21:47)
[2022-01-18 07:34] LABS: HEMATOCRIT 27.3 % (32.4-45.2); HEMOGLOBIN 9.2 GM/dL (10.7-15.3); MCH 29.4 pg (25.7-33.7); MCHC 33.5 g/dl (32.0-36.0); MEAN CELL VOLUME 87.8 fl (80-96); PLATELET COUNT 380 10^3/uL (134-434); RBC 3.11 M/mm3 (3.60-5.2); RDW 18.1 % (11.6-15.6); WHITE BLOOD COUNT 10.4 K/mm3 (4.0-10.0)
[2022-01-18 07:53] LABS: CALCIUM 8.2 mg/dL (8.5-10.1)
[2022-01-18 07:56] LABS: CREATININE 1.3 mg/dL (0.55-1.3); PHOSPHOROUS 3.2 mg/dL (2.5-4.9)
[2022-01-18 07:58] LABS: BILIRUBIN,TOTAL 0.4 mg/dL (0.2-1)
[2022-01-18 08:00] LABS: ALBUMIN 2.3 g/dl (3.4-5.0)
[2022-01-18] MEDS: SODIUM CHLORIDE 1,000 ML IV SCH (09:03)
[2022-01-18] MEDS: FOLIC ACID 1 MG TABLET (FP) NGT SCH (09:07)
[2022-01-18] MEDS: levETIRAcetam 500 MG/5 ML INJECTION VIAL IVPB SCH ×2 (09:08→21:39)
[2022-01-18] MEDS ORDERED: levETIRAcetam 500 MG/5 ML INJECTION VIAL IVPB SCH (10:00)
[2022-01-18] MEDS: LACTULOSE 20 GM/30 ML UDC (FOR ORAL USE ONLY) NGT SCH ×2 (10:22→21:42)
[2022-01-18] MEDS: LACTATED RINGERS SOLUTION 1,000 ML/1,000 ML INFUS.BAG IV SCH (10:36)
[2022-01-18] MEDS: MUPIROCIN 2% TOPICAL OINTMENT FOR DECOLONIZATION NS SCH ×2 (12:27→21:42)
[2022-01-18] MEDS: MIDAZOLAM IN 0.9 % SOD.CHLORID 100 MG/100 ML PLAST..BAG IVPB SCH ×2 (16:47→20:38)
[2022-01-18] MEDS ORDERED: DEXTROSE 50%-WATER - 25 GM/50 ML VIAL IVPUSH PRN (17:13)
[2022-01-18] MEDS ORDERED: DEXTROSE 50%-WATER 25 GM/50 ML DISP.SYRIN ONE ×2 (17:26→21:49)
[2022-01-18] MEDS: DONEPEZIL HCL 5 MG TABLET (FP) NGT SCH (17:51)
[2022-01-18] MEDS: DEXMEDETOMIDINE IN 0.9 % NACL 400 MCG/100 ML VIAL IVPB SCH ×2 (20:00→20:37)
[2022-01-18] MEDS: CHLORHEXIDINE GLUCONATE 4% CLEANSER FOR DECOLONIZATION TP SCH (21:42)
[2022-01-18] MEDS: DEXTROSE 50%-WATER 25 GM/50 ML DISP.SYRIN IVPUSH PRN (21:50)
[2022-01-19] MEDS: LACTATED RINGERS SOLUTION 1,000 ML/1,000 ML INFUS.BAG IV SCH (01:17)
[2022-01-19] MEDS: PIPERACILLIN/TAZOB 3.375 GM 3.375 GM in DEXTROSE 5%-WATER - 50 ML IVPB SCH ×3 (01:17→17:20)
[2022-01-19] MEDS ORDERED: DEXTROSE 50%-WATER 25 GM/50 ML DISP.SYRIN ONE (01:45)
[2022-01-19] MEDS: DEXTROSE 5%-LACTATED RINGERS 1,000 ML IV SCH ×2 (01:47→15:50)
[2022-01-19] MEDS: DEXTROSE 50%-WATER 25 GM/50 ML DISP.SYRIN IVPUSH PRN (01:47)
[2022-01-19] MEDS: HEPARIN NA (PORCINE) 5,000 UNITS/ML 1ML VIAL SQ SCH ×3 (05:42→21:02)
[2022-01-19] MEDS: INSULIN SLIDING SCALE (NOVOLOG) 1 VIAL SQ SCH ×4 (06:27→21:03)
[2022-01-19 06:44] LABS: HEMATOCRIT 27.8 % (32.4-45.2); MCH 28.9 pg (25.7-33.7); MCHC 32.3 g/dl (32.0-36.0); MEAN CELL VOLUME 89.5 fl (80-96); MEAN PLT VOLUME 8.3 fl (7.5-11.1); PLATELET COUNT 411 10^3/uL (134-434); RBC 3.11 M/mm3 (3.60-5.2); RDW 18.5 % (11.6-15.6); WHITE BLOOD COUNT 14.4 K/mm3 (4.0-10.0)
[2022-01-19] MEDS: PROPOFOL 1,000,000 MCG/100 ML VIAL IVPB SCH ×3 (07:00→16:52)
[2022-01-19 07:14] LABS: BLOOD UREA NITROGEN 14.5 mg/dL (7-18); CALCIUM 8.3 mg/dL (8.5-10.1); MAGNESIUM 2.1 mg/dL (1.8-2.4)
[2022-01-19 07:16] LABS: CREATININE 1.6 mg/dL (0.55-1.3); PHOSPHOROUS 3.2 mg/dL (2.5-4.9)
[2022-01-19] MEDS ORDERED: DEXTROSE 5%-WATER - 50 ML IVPB ONE ×2 (08:26→16:31)
[2022-01-19] MEDS ORDERED: PIPERACILLIN/TAZOBACTAM 3.375 GM VIAL IVPB ONE ×2 (08:26→16:31)
[2022-01-19] MEDS: AMINO ACIDS/PROTEIN HYDROLYS 30 ML LIQUID.PKT NGT SCH (08:28)
[2022-01-19] MEDS: LACTULOSE 20 GM/30 ML UDC (FOR ORAL USE ONLY) NGT SCH (09:02)
[2022-01-19] MEDS: MUPIROCIN 2% TOPICAL OINTMENT FOR DECOLONIZATION NS SCH ×2 (09:02→21:02)
[2022-01-19] MEDS: FOLIC ACID 1 MG TABLET (FP) NGT SCH (09:03)
[2022-01-19] MEDS: levETIRAcetam 500 MG/5 ML INJECTION VIAL IVPB SCH ×2 (09:23→21:00)
[2022-01-19] MEDS: MIDAZOLAM IN 0.9 % SOD.CHLORID 100 MG/100 ML PLAST..BAG IVPB SCH ×2 (10:44→19:00)
[2022-01-19] MEDS: DEXMEDETOMIDINE IN 0.9 % NACL 400 MCG/100 ML VIAL IVPB SCH (15:30)
[2022-01-19] MEDS: DONEPEZIL HCL 5 MG TABLET (FP) NGT SCH (18:42)
[2022-01-19] MEDS: CARVEDILOL 6.25 MG TABLET (FP) NGT SCH (21:01)
[2022-01-19] MEDS: SPIRONOLACTONE 25 MG TABLET NGT SCH (21:01)
[2022-01-19] MEDS: CHLORHEXIDINE GLUCONATE 4% CLEANSER FOR DECOLONIZATION TP SCH (21:02)
[2022-01-19] MEDS ORDERED: LISINOPRIL 5 MG TABLET GT ONE (22:03)
[2022-01-19] MEDS ORDERED: LABETALOL HCL 5 MG/1 ML (100MG/20 ML VIAL) IVPUSH ONE (23:40)
[2022-01-20] MEDS ORDERED: LABETALOL HCL 5 MG/1 ML (100MG/20 ML VIAL) IVPUSH ONE (00:56)
[2022-01-20] MEDS ORDERED: ACETAMINOPHEN 1000 MG/100 ML BAG IVPB ONE (00:57)
[2022-01-20] MEDS ORDERED: PIPERACILLIN/TAZOBACTAM 3.375 GM VIAL IVPB ONE ×3 (01:54→17:39)
[2022-01-20] MEDS ORDERED: DEXTROSE 5%-WATER - 50 ML IVPB ONE ×3 (01:54→17:39)
[2022-01-20] MEDS: PIPERACILLIN/TAZOB 3.375 GM 3.375 GM in DEXTROSE 5%-WATER - 50 ML IVPB SCH ×3 (01:56→18:01)
[2022-01-20] MEDS: PROPOFOL 1,000,000 MCG/100 ML VIAL IVPB SCH ×2 (01:56→06:07)
[2022-01-20] MEDS: DEXTROSE 5%-LACTATED RINGERS 1,000 ML IV SCH ×2 (02:05→05:00)
[2022-01-20] MEDS: HEPARIN NA (PORCINE) 5,000 UNITS/ML 1ML VIAL SQ SCH ×3 (06:07→21:46)
[2022-01-20] MEDS: INSULIN SLIDING SCALE (NOVOLOG) 1 VIAL SQ SCH ×3 (06:10→18:01)
[2022-01-20] MEDS ORDERED: hydrALAZINE HCL 20 MG/ML VIAL IVPUSH ONE (06:41)
[2022-01-20 07:37] LABS: HEMATOCRIT 28.9 % (32.4-45.2); HEMOGLOBIN 9.4 GM/dL (10.7-15.3); MCH 29.2 pg (25.7-33.7); MCHC 32.5 g/dl (32.0-36.0); MEAN CELL VOLUME 89.8 fl (80-96); MEAN PLT VOLUME 8.4 fl (7.5-11.1); PLATELET COUNT 383 10^3/uL (134-434); RBC 3.22 M/mm3 (3.60-5.2); RDW 18.5 % (11.6-15.6); WHITE BLOOD COUNT 11.7 K/mm3 (4.0-10.0)
[2022-01-20] MEDS ORDERED: FUROSEMIDE 40 MG/4 ML INJECTABLE VIAL IVPUSH STA ×2 (08:18→15:31)
[2022-01-20 08:33] LABS: CALCIUM 8.6 mg/dL (8.5-10.1); MAGNESIUM 2.3 mg/dL (1.8-2.4)
[2022-01-20 08:37] LABS: CREATININE 1.3 mg/dL (0.55-1.3); PHOSPHOROUS 4.1 mg/dL (2.5-4.9)
[2022-01-20] MEDS: SPIRONOLACTONE 25 MG TABLET NGT SCH (09:48)
[2022-01-20] MEDS: MUPIROCIN 2% TOPICAL OINTMENT FOR DECOLONIZATION NS SCH ×2 (09:48→21:46)
[2022-01-20] MEDS: AMINO ACIDS/PROTEIN HYDROLYS 30 ML LIQUID.PKT NGT SCH (09:48)
[2022-01-20] MEDS: FOLIC ACID 1 MG TABLET (FP) NGT SCH (09:48)
[2022-01-20] MEDS: CARVEDILOL 6.25 MG TABLET (FP) NGT SCH ×2 (09:48→21:46)
[2022-01-20] MEDS: levETIRAcetam 500 MG/5 ML INJECTION VIAL IVPB SCH ×2 (09:49→21:46)
[2022-01-20] MEDS ORDERED: PNEUMOC 20-VAL CONJ-DIP CRM/PF 0.5 ML SYRINGE IM ONE (13:00)
[2022-01-20] MEDS: DEXMEDETOMIDINE IN 0.9 % NACL 400 MCG/100 ML VIAL IVPB SCH (16:13)
[2022-01-20] MEDS: DONEPEZIL HCL 5 MG TABLET (FP) NGT SCH (18:01)
[2022-01-20] MEDS ORDERED: MIDAZOLAM HCL 5 MG/1 ML Single Dose Vial IVPUSH ONE (18:09)
[2022-01-20] MEDS: CHLORHEXIDINE GLUCONATE 4% CLEANSER FOR DECOLONIZATION TP SCH (21:46)
[2022-01-21] MEDS: INSULIN SLIDING SCALE (NOVOLOG) 1 VIAL SQ SCH ×5 (00:07→22:06)
[2022-01-21] MEDS ORDERED: DEXTROSE 5%-WATER - 50 ML IVPB ONE ×3 (03:17→17:14)
[2022-01-21] MEDS ORDERED: PIPERACILLIN/TAZOBACTAM 3.375 GM VIAL IVPB ONE ×3 (03:17→17:14)
[2022-01-21] MEDS: PIPERACILLIN/TAZOB 3.375 GM 3.375 GM in DEXTROSE 5%-WATER - 50 ML IVPB SCH ×3 (03:24→18:08)
[2022-01-21] MEDS: DEXTROSE 5%-LACTATED RINGERS 1,000 ML IV SCH ×2 (06:58→09:39)
[2022-01-21] MEDS: PROPOFOL 1,000,000 MCG/100 ML VIAL IVPB SCH (06:58)
[2022-01-21] MEDS: HEPARIN NA (PORCINE) 5,000 UNITS/ML 1ML VIAL SQ SCH ×3 (06:59→21:16)
[2022-01-21 07:26] LABS: HEMATOCRIT 29.8 % (32.4-45.2); HEMOGLOBIN 9.9 GM/dL (10.7-15.3); MCH 29.2 pg (25.7-33.7); MCHC 33.1 g/dl (32.0-36.0); MEAN CELL VOLUME 88.2 fl (80-96); MEAN PLT VOLUME 8.2 fl (7.5-11.1); PLATELET COUNT 410 10^3/uL (134-434); RBC 3.38 M/mm3 (3.60-5.2); RDW 18.4 % (11.6-15.6); WHITE BLOOD COUNT 9.4 K/mm3 (4.0-10.0)
[2022-01-21 07:53] LABS: CALCIUM 8.8 mg/dL (8.5-10.1)
[2022-01-21 07:54] LABS: MAGNESIUM 1.9 mg/dL (1.8-2.4)
[2022-01-21 07:57] LABS: CREATININE 1.4 mg/dL (0.55-1.3); PHOSPHOROUS 4.3 mg/dL (2.5-4.9)
[2022-01-21] MEDS: AMINO ACIDS/PROTEIN HYDROLYS 30 ML LIQUID.PKT NGT SCH (09:37)
[2022-01-21] MEDS: FOLIC ACID 1 MG TABLET (FP) NGT SCH (09:37)
[2022-01-21] MEDS: MUPIROCIN 2% TOPICAL OINTMENT FOR DECOLONIZATION NS SCH ×2 (09:37→21:16)
[2022-01-21] MEDS: SPIRONOLACTONE 25 MG TABLET NGT SCH (09:37)
[2022-01-21] MEDS: levETIRAcetam 500 MG/5 ML INJECTION VIAL IVPB SCH ×2 (09:37→21:15)
[2022-01-21] MEDS: CARVEDILOL 6.25 MG TABLET (FP) NGT SCH ×2 (09:37→21:16)
[2022-01-21] MEDS ORDERED: D5-1/3NS+20 MEQ KCL - 20 MEQ/1,000 ML INFUS.BAG IV SCH ×3 (14:45→17:29)
[2022-01-21 15:08] LABS: TOTAL PROTEIN, URINE 45.3 mg/dL (Not Estab.)
[2022-01-21 16:29] VITALS: BMI 24.7
[2022-01-21] MEDS: DEXMEDETOMIDINE IN 0.9 % NACL 400 MCG/100 ML VIAL IVPB SCH (17:40)
[2022-01-21] MEDS: MIDAZOLAM IN 0.9 % SOD.CHLORID 100 MG/100 ML PLAST..BAG IVPB SCH ×2 (17:40→21:16)
[2022-01-21] MEDS: DONEPEZIL HCL 5 MG TABLET (FP) NGT SCH (18:08)
[2022-01-21] MEDS: POTASSIUM CHLORIDE 10 MEQ in DEXTROSE 5%-1/3 NS - 500 ML IV SCH (18:34)
[2022-01-21] MEDS: CHLORHEXIDINE GLUCONATE 4% CLEANSER FOR DECOLONIZATION TP SCH (21:16)
[2022-01-21] MEDS ORDERED: LABETALOL HCL 5 MG/1 ML (100MG/20 ML VIAL) IVPUSH ONE (22:40)
[2022-01-21] MEDS: LACTULOSE 20 GM/30 ML UDC (FOR ORAL USE ONLY) NGT SCH (23:00)
[2022-01-22] MEDS ORDERED: PIPERACILLIN/TAZOBACTAM 3.375 GM VIAL IVPB ONE ×3 (01:47→17:41)
[2022-01-22] MEDS ORDERED: DEXTROSE 5%-WATER - 50 ML IVPB ONE ×3 (01:47→17:41)
[2022-01-22] MEDS: PIPERACILLIN/TAZOB 3.375 GM 3.375 GM in DEXTROSE 5%-WATER - 50 ML IVPB SCH ×3 (01:50→18:13)
[2022-01-22] MEDS: PROPOFOL 1,000,000 MCG/100 ML VIAL IVPB SCH (05:48)
[2022-01-22] MEDS: HEPARIN NA (PORCINE) 5,000 UNITS/ML 1ML VIAL SQ SCH ×3 (06:29→21:18)
[2022-01-22] MEDS: INSULIN SLIDING SCALE (NOVOLOG) 1 VIAL SQ SCH ×4 (06:29→21:19)
[2022-01-22 06:46] LABS: BASO % 0.7 % (0-2.0); HEMATOCRIT 29.3 % (32.4-45.2); HEMOGLOBIN 9.5 GM/dL (10.7-15.3); LYMPH % 27.6 % (8-40); MCH 28.8 pg (25.7-33.7); MCHC 32.4 g/dl (32.0-36.0); MEAN CELL VOLUME 88.8 fl (80-96); MEAN PLT VOLUME 8.1 fl (7.5-11.1); MONO % 18.5 % (3.8-10.2); NEUT % 47.2 % (42.8-82.8); PLATELET COUNT 407 10^3/uL (134-434); RDW 18.8 % (11.6-15.6); WHITE BLOOD COUNT 9.4 K/mm3 (4.0-10.0)
[2022-01-22 07:10] LABS: ALBUMIN 2.3 g/dl (3.4-5.0); MAGNESIUM 1.9 mg/dL (1.8-2.4)
[2022-01-22 07:11] LABS: BLOOD UREA NITROGEN 16.9 mg/dL (7-18)
[2022-01-22 07:13] LABS: CREATININE 1.2 mg/dL (0.55-1.3)
[2022-01-22 07:15] LABS: BILIRUBIN,TOTAL 0.4 mg/dL (0.2-1); TOT PROT 7.4 g/dl (6.4-8.2)
[2022-01-22] MEDS: CARVEDILOL 12.5 MG TABLET (FP) NGT SCH ×2 (10:22→21:18)
[2022-01-22] MEDS: SPIRONOLACTONE 25 MG TABLET NGT SCH (10:22)
[2022-01-22] MEDS: FOLIC ACID 1 MG TABLET (FP) NGT SCH (10:22)
[2022-01-22] MEDS: levETIRAcetam 500 MG/5 ML INJECTION VIAL IVPB SCH ×2 (10:22→21:18)
[2022-01-22] MEDS: LACTULOSE 20 GM/30 ML UDC (FOR ORAL USE ONLY) NGT SCH ×2 (10:23→21:18)
[2022-01-22] MEDS: DONEPEZIL HCL 5 MG TABLET (FP) NGT SCH (18:13)
[2022-01-22] MEDS: POTASSIUM CHLORIDE 10 MEQ in DEXTROSE 5%-1/3 NS - 500 ML IV SCH (18:13)
[2022-01-22] MEDS: CHLORHEXIDINE GLUCONATE 4% CLEANSER FOR DECOLONIZATION TP SCH (21:19)
[2022-01-23] MEDS: PIPERACILLIN/TAZOB 3.375 GM 3.375 GM in DEXTROSE 5%-WATER - 50 ML IVPB SCH ×3 (03:10→19:59)
[2022-01-23] MEDS ORDERED: DEXTROSE 5%-WATER - 50 ML IVPB ONE ×3 (03:13→19:24)
[2022-01-23] MEDS ORDERED: PIPERACILLIN/TAZOBACTAM 3.375 GM VIAL IVPB ONE ×3 (03:13→19:24)
[2022-01-23] MEDS: POTASSIUM CHLORIDE 10 MEQ in DEXTROSE 5%-1/3 NS - 500 ML IV SCH ×3 (04:00→19:59)
[2022-01-23] MEDS: HEPARIN NA (PORCINE) 5,000 UNITS/ML 1ML VIAL SQ SCH ×3 (05:48→21:18)
[2022-01-23] MEDS: INSULIN SLIDING SCALE (NOVOLOG) 1 VIAL SQ SCH ×4 (06:00→21:16)
[2022-01-23 06:51] LABS: HEMATOCRIT 26.5 % (32.4-45.2); HEMOGLOBIN 8.7 GM/dL (10.7-15.3); MCHC 32.8 g/dl (32.0-36.0); MEAN CELL VOLUME 88.5 fl (80-96); MEAN PLT VOLUME 8.2 fl (7.5-11.1); PLATELET COUNT 386 10^3/uL (134-434); RDW 18.1 % (11.6-15.6)
[2022-01-23 07:08] LABS: CALCIUM 9.1 mg/dL (8.5-10.1)
[2022-01-23 07:09] LABS: ALBUMIN 2.3 g/dl (3.4-5.0); BLOOD UREA NITROGEN 14.3 mg/dL (7-18); MAGNESIUM 1.9 mg/dL (1.8-2.4)
[2022-01-23 07:12] LABS: CREATININE 1.2 mg/dL (0.55-1.3); PHOSPHOROUS 2.6 mg/dL (2.5-4.9); TOT PROT 7.1 g/dl (6.4-8.2)
[2022-01-23 07:13] LABS: BILIRUBIN,TOTAL 0.6 mg/dL (0.2-1)
[2022-01-23] MEDS: LACTULOSE 20 GM/30 ML UDC (FOR ORAL USE ONLY) NGT SCH ×2 (10:12→21:18)
[2022-01-23] MEDS: levETIRAcetam 500 MG/5 ML INJECTION VIAL IVPB SCH ×2 (10:12→21:18)
[2022-01-23] MEDS: FOLIC ACID 1 MG TABLET (FP) NGT SCH (10:13)
[2022-01-23] MEDS: CARVEDILOL 12.5 MG TABLET (FP) NGT SCH ×2 (10:13→21:18)
[2022-01-23] MEDS: SPIRONOLACTONE 25 MG TABLET NGT SCH (10:13)
[2022-01-23] MEDS: AMINO ACIDS/PROTEIN HYDROLYS 30 ML LIQUID.PKT NGT SCH (10:14)
[2022-01-23] MEDS: DONEPEZIL HCL 5 MG TABLET (FP) NGT SCH (19:56)
[2022-01-23] MEDS: CHLORHEXIDINE GLUCONATE 4% CLEANSER FOR DECOLONIZATION TP SCH (21:16)
[2022-01-24] MEDS ORDERED: PIPERACILLIN/TAZOBACTAM 3.375 GM VIAL IVPB ONE (01:00)
[2022-01-24] MEDS ORDERED: DEXTROSE 5%-WATER - 50 ML IVPB ONE (01:00)
[2022-01-24] MEDS: PIPERACILLIN/TAZOB 3.375 GM 3.375 GM in DEXTROSE 5%-WATER - 50 ML IVPB SCH (01:16)
[2022-01-24] MEDS: INSULIN SLIDING SCALE (NOVOLOG) 1 VIAL SQ SCH ×4 (06:10→22:23)
[2022-01-24] MEDS: HEPARIN NA (PORCINE) 5,000 UNITS/ML 1ML VIAL SQ SCH (06:10)
[2022-01-24 07:02] LABS: HEMATOCRIT 26.7 % (32.4-45.2); HEMOGLOBIN 8.7 GM/dL (10.7-15.3); MCH 28.9 pg (25.7-33.7); MCHC 32.8 g/dl (32.0-36.0); MEAN CELL VOLUME 88.1 fl (80-96); MEAN PLT VOLUME 8.2 fl (7.5-11.1); PLATELET COUNT 363 10^3/uL (134-434); RBC 3.03 M/mm3 (3.60-5.2); RDW 18.2 % (11.6-15.6)
[2022-01-24 07:33] LABS: CALCIUM 9.2 mg/dL (8.5-10.1)
[2022-01-24 07:34] LABS: BLOOD UREA NITROGEN 11.8 mg/dL (7-18)
[2022-01-24 07:37] LABS: CREATININE 1.3 mg/dL (0.55-1.3)
[2022-01-24] MEDS: AMINO ACIDS/PROTEIN HYDROLYS 30 ML LIQUID.PKT NGT SCH ×2 (10:05→10:06)
[2022-01-24] MEDS: LACTULOSE 20 GM/30 ML UDC (FOR ORAL USE ONLY) NGT SCH (10:05)
[2022-01-24] MEDS: FOLIC ACID 1 MG TABLET (FP) NGT SCH (10:06)
[2022-01-24] MEDS: levETIRAcetam 500 MG/5 ML INJECTION VIAL IVPB SCH (10:06)
[2022-01-24] MEDS: CARVEDILOL 12.5 MG TABLET (FP) NGT SCH (10:06)
[2022-01-24] MEDS: DONEPEZIL HCL 5 MG TABLET (FP) NGT SCH (17:25)
[2022-01-24] MEDS ORDERED: DEXTROSE 50%-WATER 25 GM/50 ML DISP.SYRIN IVPUSH PRN (17:27)
[2022-01-24] MEDS ORDERED: MINERAL OIL/PETROLATUM,WHITE 3.5 GM TUBE OU PRN (17:27)
[2022-01-24] MEDS ORDERED: LORazepam 2 MG/ML SDV VIAL IVPUSH PRN (17:27)
[2022-01-24] MEDS ORDERED: AMINO ACIDS/PROTEIN HYDROLYS 30 ML LIQUID.PKT NGT SCH (17:30)
[2022-01-24] MEDS ORDERED: DONEPEZIL HCL 5 MG TABLET (FP) NGT SCH (18:00)
[2022-01-24] MEDS ORDERED: DONEPEZIL HCL 5 MG TABLET (FP) PO SCH (18:58)
[2022-01-24] MEDS ORDERED: CHLORHEXIDINE GLUCONATE 4% CLEANSER FOR DECOLONIZATION TP SCH (22:00)
[2022-01-24] MEDS: LACTULOSE 20 GM/30 ML UDC (FOR ORAL USE ONLY) PO SCH (22:23)
[2022-01-24] MEDS: CARVEDILOL 12.5 MG TABLET (FP) PO SCH (22:23)
[2022-01-25] MEDS: levETIRAcetam 500 MG/5 ML INJECTION VIAL IVPB SCH ×4 (00:13→23:01)
[2022-01-25] MEDS: INSULIN SLIDING SCALE (NOVOLOG) 1 VIAL SQ SCH ×4 (06:35→21:38)
[2022-01-25] MEDS: AMINO ACIDS/PROTEIN HYDROLYS 30 ML LIQUID.PKT PO SCH ×2 (09:34→17:56)
[2022-01-25] MEDS: LACTULOSE 20 GM/30 ML UDC (FOR ORAL USE ONLY) PO SCH ×3 (09:34→21:56)
[2022-01-25] MEDS: CARVEDILOL 12.5 MG TABLET (FP) PO SCH ×2 (09:35→21:38)
[2022-01-25] MEDS ORDERED: FOLIC ACID 1 MG TABLET (FP) PO SCH (10:00)
[2022-01-25] MEDS ORDERED: MULTIVIT-MINERALS ORAL LIQUID PO SCH (10:00)
[2022-01-25 11:24] LABS: HEMATOCRIT 26.4 % (32.4-45.2); HEMOGLOBIN 8.7 GM/dL (10.7-15.3); MCHC 32.9 g/dl (32.0-36.0); MEAN PLT VOLUME 7.9 fl (7.5-11.1); PLATELET COUNT 375 10^3/uL (134-434); RDW 18.2 % (11.6-15.6); WHITE BLOOD COUNT 10.4 K/mm3 (4.0-10.0)
[2022-01-25 11:35] LABS: CALCIUM 9.3 mg/dL (8.5-10.1)
[2022-01-25 11:36] LABS: BLOOD UREA NITROGEN 15.1 mg/dL (7-18)
[2022-01-25 11:39] LABS: CREATININE 1.4 mg/dL (0.55-1.3)
[2022-01-25 12:46] LABS: PLATELET ESTIMATE NORMAL; ROULEAU 1+
[2022-01-25] MEDS ORDERED: AMOX TR/POTASSIUM CLAVULANATE 250 MG/5 ML BOTTLE PO SCH (17:30)
[2022-01-25] MEDS ORDERED: levETIRAcetam 500 MG TABLET (FP) PO ONE ×2 (22:13→22:32)
[2022-01-25] MEDS ORDERED: levETIRAcetam 250 MG, levETIRAcetam 1,000 MG PO ONE (22:30)
[2022-01-25] MEDS ORDERED: levETIRAcetam 250 MG TABLET PO ONE (22:32)
[2022-01-26 00:17] VITALS: BP 151/66; PULSE 77; TEMP 98.3
== END 2022-01-26 00:12 | DRG 870 ==
LOC: JER 04:28 → JERBED 04:43 → JICU 12:15 → J5S 01-24 18:01
PROVIDERS: ADMIT Internal Medicine Pulmonary Disease; ATTEND Internal Medicine
PROC: 5A1955Z Respiratory Ventilation, Greater than 96 Consecutive Hours (ICD-10-PCS; principal; 2022-01-17)
PROC: 0BH17EZ Insertion of Endotracheal Airway into Trachea, Via Natural or Artificial Opening (ICD-10-PCS; 2022-01-17)
PROC: 4A10X4Z Monitoring of Central Nervous Electrical Activity, External Approach (ICD-10-PCS; 2022-01-17)
DX: A41.89 Other specified sepsis (principal); J96.01 Acute respiratory failure with hypoxia; J69.0 Pneumonitis due to inhalation of food and vomit; N17.9 Acute kidney failure, unspecified; J98.11 Atelectasis; E87.2 Acidosis; E87.0 Hyperosmolality and hypernatremia; I85.00 Esophageal varices without bleeding; R18.8 Other ascites; E11.9 Type 2 diabetes mellitus without complications; G40.901 Epilepsy, unspecified, not intractable, with status epilepticus; I10 Essential (primary) hypertension; M54.9 Dorsalgia, unspecified; D64.9 Anemia, unspecified; R74.01 Elevation of levels of liver transaminase levels; Z79.84 Long term (current) use of oral hypoglycemic drugs; K75.4 Autoimmune hepatitis; N28.1 Cyst of kidney, acquired; F03.90 Unspecified dementia, unspecified severity, without behavioral disturbance, psychotic disturbance, mood disturbance, and anxiety; K74.60 Unspecified cirrhosis of liver; Z91.14 Patient's other noncompliance with medication regimen; E86.0 Dehydration
CPT/HCPCS: 0241U-QW; 36415; 36600; 70450-TC; 70551-TC; 71045-TC-FY; 76775-TC; 80048; 80053; 80177; 80307; 81003; 82140; 82550; 82570; 82803; 82962; 83036; 83605; 83735; 84100; 84146; 84155; 84156; 84157; 84165; 84439; 84443; 84484; 85025; 85027; 85610; 85730; 87040; 87070; 87086; 87205; 87899; 90677; 93005; 93010; 94002; 95816; 97116-GP; 97162-GP; 99285-25; C9803-CS; J1644; U0003; U0005

== ENCOUNTER 2022-03-01 17:52 | Observation (INO) | payer OTHER, MEDICARE ==
[2022-03-01 18:20] VITALS: BP 125/64; PULSE 70; TEMP 98.5; BMI 24.0
[2022-03-01 21:09] LABS: BASO % 0.8 % (0-2.0); EOS % 1.4 % (0-4.5); HEMATOCRIT 26.2 % (32.4-45.2); HEMOGLOBIN 8.7 GM/dL (10.7-15.3); LYMPH % 21.4 % (8-40); MCH 28.9 pg (25.7-33.7); MCHC 33.3 g/dl (32.0-36.0); MEAN CELL VOLUME 86.8 fl (80-96); MEAN PLT VOLUME 7.3 fl (7.5-11.1); MONO % 19.3 % (3.8-10.2); NEUT % 57.1 % (42.8-82.8); PLATELET COUNT 391 10^3/uL (134-434); RBC 3.02 M/mm3 (3.60-5.2); WHITE BLOOD COUNT 11.6 K/mm3 (4.0-10.0)
[2022-03-01 21:10] LABS: PH,URINE 5.5 (5.0-8.0); URINE APPEARANCE CLEAR; URINE BILIRUBIN NEGATIVE (NEGATIVE); URINE COLOR YELLOW; URINE GLUCOSE (UA) NEGATIVE (NEGATIVE); URINE KETONE NEGATIVE (NEGATIVE); URINE LEUK ESTERASE NEGATIVE (NEGATIVE); URINE NITRITE NEGATIVE (NEGATIVE); URINE PROTEIN NEGATIVE (NEGATIVE); URINE UROBILINOGEN 0.2 mg/dL (0.2-1.0)
[2022-03-01 21:33] LABS: ALBUMIN 2.7 g/dl (3.4-5.0)
[2022-03-01 21:34] LABS: BLOOD UREA NITROGEN 31.8 mg/dL (7-18)
[2022-03-01 21:36] LABS: CREATININE 1.8 mg/dL (0.55-1.3)
[2022-03-01 21:38] LABS: BILIRUBIN,TOTAL 0.3 mg/dL (0.2-1); TOT PROT 8.3 g/dl (6.4-8.2)
[2022-03-01 22:27] LABS: N-TERMINAL BNP 379.2 pg/ml (5-125)
[2022-03-01] MEDS ORDERED: SODIUM CHLORIDE 500 ML IV STA (23:20)
== END 2022-03-02 02:50 | disposition left against medical advice (07) ==
LOC: JER 17:52 → JERBED 23:02
PROVIDERS: ADMIT Internal Medicine; ATTEND Internal Medicine
PROC: 3E0337Z Introduction of Electrolytic and Water Balance Substance into Peripheral Vein, Percutaneous Approach (ICD-10-PCS; principal; 2022-03-01)
DX: R94.4 Abnormal results of kidney function studies (principal); J30.2 Other seasonal allergic rhinitis; Z90.49 Acquired absence of other specified parts of digestive tract; J34.89 Other specified disorders of nose and nasal sinuses; Z87.891 Personal history of nicotine dependence
CPT/HCPCS: 36415; 71046-TC-FY; 80053; 81003; 83880; 85025; 93005; 93010; 99285-25; C9803-CS; G0378; U0003; U0005

== ENCOUNTER 2022-04-25 10:49 | Observation (INO) | payer OTHER, MEDICARE ==
[2022-04-25 10:56] VITALS: TEMP 98.5; BMI 22.3
[2022-04-25 14:50] LABS: BASO % 0.6 % (0-2.0); EOS % 1.1 % (0-4.5); HEMATOCRIT 28.6 % (32.4-45.2); HEMOGLOBIN 9.3 GM/dL (10.7-15.3); LYMPH % 28.3 % (8-40); MCH 28.7 pg (25.7-33.7); MCHC 32.5 g/dl (32.0-36.0); MEAN CELL VOLUME 88.1 fl (80-96); MEAN PLT VOLUME 7.4 fl (7.5-11.1); MONO % 17.7 % (3.8-10.2); NEUT % 52.3 % (42.8-82.8); PLATELET COUNT 532 10^3/uL (134-434); RBC 3.25 M/mm3 (3.60-5.2); RDW 17.7 % (11.6-15.6); WHITE BLOOD COUNT 7.3 K/mm3 (4.0-10.0)
[2022-04-25 14:51] LABS: PH,URINE 6.5 (5.0-8.0); URINE APPEARANCE CLEAR; URINE BILIRUBIN NEGATIVE (NEGATIVE); URINE COLOR YELLOW; URINE GLUCOSE (UA) NEGATIVE (NEGATIVE); URINE KETONE NEGATIVE (NEGATIVE); URINE LEUK ESTERASE NEGATIVE (NEGATIVE); URINE NITRITE NEGATIVE (NEGATIVE); URINE PROTEIN NEGATIVE (NEGATIVE); URINE UROBILINOGEN 0.2 mg/dL (0.2-1.0)
[2022-04-25 15:16] LABS: CHLORIDE 107 mmol/L (98-107); SODIUM 138 mmol/L (136-145)
[2022-04-25 15:22] LABS: ANION GAP 7 MMOL/L (8-16); BLOOD UREA NITROGEN 24.3 mg/dL (7-18); CALCIUM 9.6 mg/dL (8.5-10.1); CO2 24 mmol/L (21-32); GLUCOSE,RANDOM 80 mg/dL (74-106); MAGNESIUM 2.2 mg/dL (1.8-2.4)
[2022-04-25 15:23] LABS: ALBUMIN 2.7 g/dl (3.4-5.0)
[2022-04-25 15:25] LABS: CREATININE 1.3 mg/dL (0.55-1.3); SGPT/ALT 19 U/L (13-61)
[2022-04-25 15:26] LABS: SGOT/AST 28 U/L (15-37)
[2022-04-25 15:27] LABS: BILIRUBIN,TOTAL 0.3 mg/dL (0.2-1)
[2022-04-25 15:28] LABS: ALK PHOS 272 U/L (45-117)
[2022-04-25] MEDS ORDERED: levETIRAcetam 500 MG TABLET (FP) PO SCH (22:00)
[2022-04-25] MEDS ORDERED: CARVEDILOL 12.5 MG TABLET (FP) PO SCH (22:00)
[2022-04-25] MEDS ORDERED: CARVEDILOL 12.5 MG TABLET (FP) ONE (22:29)
[2022-04-25] MEDS ORDERED: levETIRAcetam 500 MG TABLET (FP) PO ONE (22:29)
[2022-04-26 01:52] VITALS: BP 125/63; PULSE 54; RESP 16
[2022-04-26] MEDS ORDERED: FOLIC ACID 1 MG TABLET (FP) PO SCH (10:00)
[2022-04-26] MEDS ORDERED: FUROSEMIDE 40 MG TABLET (FP) PO SCH (10:00)
[2022-04-26] MEDS ORDERED: SPIRONOLACTONE 25 MG TABLET PO SCH (10:00)
[2022-04-26] MEDS ORDERED: ENOXAPARIN NA (PORCINE) 40 MG/0.4 ML DISP.SYRIN SQ SCH (10:00)
[2022-04-26] MEDS ORDERED: DONEPEZIL HCL 5 MG TABLET (FP) PO SCH (22:00)
== END 2022-04-26 08:06 | disposition left against medical advice (07) ==
LOC: JER 10:49 → JERBED 15:29
PROVIDERS: ADMIT Internal Medicine; ATTEND Internal Medicine
DX: R55 Syncope and collapse (principal); I11.0 Hypertensive heart disease with heart failure; I50.9 Heart failure, unspecified; E11.9 Type 2 diabetes mellitus without complications; G40.909 Epilepsy, unspecified, not intractable, without status epilepticus; D64.9 Anemia, unspecified; K74.60 Unspecified cirrhosis of liver; Z88.6 Allergy status to analgesic agent; Z86.19 Personal history of other infectious and parasitic diseases
CPT/HCPCS: 36415; 71045-TC-FY; 80053; 81003; 82962; 83735; 84484; 85025; 87086; 93005; 93010; 99285-25; C9803-CS; G0378; U0003; U0005

== ENCOUNTER 2022-07-06 09:17 | Inpatient (IN) | payer OTHER, MEDICARE ==
[2022-07-06 11:02] LABS: BASO % 1.3 % (0-2.0); EOS % 2.6 % (0-4.5); HEMATOCRIT 27.7 % (32.4-45.2); HEMOGLOBIN 8.8 GM/dL (10.7-15.3); LYMPH % 40.9 % (8-40); MCHC 31.7 g/dl (32.0-36.0); MEAN CELL VOLUME 91.4 fl (80-96); MEAN PLT VOLUME 7.5 fl (7.5-11.1); MONO % 15.6 % (3.8-10.2); NEUT % 39.6 % (42.8-82.8); PLATELET COUNT 530 10^3/uL (134-434); RBC 3.03 M/mm3 (3.60-5.2); RDW 17.4 % (11.6-15.6)
[2022-07-06 11:20] LABS: ALBUMIN 2.8 g/dl (3.4-5.0); BLOOD UREA NITROGEN 46.2 mg/dL (7-18); CALCIUM 9.3 mg/dL (8.5-10.1)
[2022-07-06 11:22] LABS: CREATININE 2.7 mg/dL (0.55-1.3)
[2022-07-06 11:25] LABS: BILIRUBIN,TOTAL 0.2 mg/dL (0.2-1); TOT PROT 8.6 g/dl (6.4-8.2)
[2022-07-06] MEDS ORDERED: SODIUM CHLORIDE 0.9% 500 ML INFUS.BAG IV ONE (11:54)
[2022-07-06 14:16] LABS: PH,URINE 6.5 (5.0-8.0); URINE APPEARANCE CLEAR; URINE BILIRUBIN NEGATIVE (NEGATIVE); URINE COLOR YELLOW; URINE GLUCOSE (UA) NEGATIVE (NEGATIVE); URINE KETONE NEGATIVE (NEGATIVE); URINE LEUK ESTERASE NEGATIVE (NEGATIVE); URINE NITRITE NEGATIVE (NEGATIVE); URINE PROTEIN NEGATIVE (NEGATIVE); URINE UROBILINOGEN 0.2 mg/dL (0.2-1.0)
[2022-07-06] MEDS ORDERED: ACETAMINOPHEN 325 MG TABLET (FP) PO PRN (15:24)
[2022-07-06] MEDS ORDERED: DEXTROSE 5%-0.45% SALINE 1,000 ML IV SCH (15:30)
[2022-07-06] MEDS: INSULIN SLIDING SCALE (NOVOLOG) 1 VIAL SQ SCH ×2 (17:15→21:53)
[2022-07-06 17:46] VITALS: RESP 20
[2022-07-06] MEDS: SODIUM CHLORIDE 1,000 ML IV SCH ×2 (17:49→21:52)
[2022-07-06] MEDS ORDERED: DONEPEZIL HCL 5 MG TABLET (FP) PO SCH (22:00)
[2022-07-06] MEDS ORDERED: levETIRAcetam 500 MG TABLET (FP) PO SCH (22:00)
[2022-07-06] MEDS: IRON POLYSACCHARIDES 150 MG CAPSULE PO SCH (22:43)
[2022-07-06] MEDS: HEPARIN NA (PORCINE) 5,000 UNITS/ML 1ML VIAL SQ SCH (22:43)
[2022-07-06] MEDS: CARVEDILOL 12.5 MG TABLET (FP) PO SCH (22:43)
[2022-07-06] MEDS ORDERED: MELATONIN 5 MG TABLETS PO ONE (23:53)
[2022-07-07] MEDS: INSULIN SLIDING SCALE (NOVOLOG) 1 VIAL SQ SCH ×2 (06:17→12:42)
[2022-07-07] MEDS ORDERED: FOLIC ACID 1 MG TABLET (FP) PO SCH (10:00)
[2022-07-07] MEDS: SODIUM CHLORIDE 1,000 ML IV SCH (10:14)
[2022-07-07] MEDS: CARVEDILOL 12.5 MG TABLET (FP) PO SCH (10:17)
[2022-07-07] MEDS: IRON POLYSACCHARIDES 150 MG CAPSULE PO SCH (10:17)
[2022-07-07] MEDS: HEPARIN NA (PORCINE) 5,000 UNITS/ML 1ML VIAL SQ SCH (10:18)
[2022-07-07 12:31] LABS: BASO % 1.1 % (0-2.0); EOS % 4.3 % (0-4.5); HEMATOCRIT 26.7 % (32.4-45.2); HEMOGLOBIN 8.8 GM/dL (10.7-15.3); LYMPH % 42.2 % (8-40); MCH 30.3 pg (25.7-33.7); MEAN CELL VOLUME 91.9 fl (80-96); MEAN PLT VOLUME 7.4 fl (7.5-11.1); MONO % 18.4 % (3.8-10.2); PLATELET COUNT 479 10^3/uL (134-434); RDW 17.2 % (11.6-15.6); WHITE BLOOD COUNT 5.2 K/mm3 (4.0-10.0)
[2022-07-07 13:15] LABS: BLOOD UREA NITROGEN 34.5 mg/dL (7-18); CALCIUM 8.7 mg/dL (8.5-10.1)
[2022-07-07 13:16] LABS: ALBUMIN 2.4 g/dl (3.4-5.0)
[2022-07-07 13:19] LABS: CREATININE 1.9 mg/dL (0.55-1.3)
[2022-07-07 13:20] LABS: BILIRUBIN,TOTAL 0.3 mg/dL (0.2-1); TOT PROT 7.5 g/dl (6.4-8.2)
[2022-07-07 13:57] VITALS: BMI 23.8
[2022-07-07 15:27] VITALS: BP 166/71; PULSE 65; TEMP 98.4
[2022-07-07] MEDS ORDERED: levETIRAcetam 500 MG TABLET (FP) PO SCH (22:00)
[2022-07-07] MEDS ORDERED: levETIRAcetam XR 750 MG TAB PO SCH (22:00)
[2022-07-07] MEDS ORDERED: GABAPENTIN 100 MG CAPSULE PO SCH (22:00)
== END 2022-07-07 17:00 | disposition left against medical advice (07) | DRG 101 ==
LOC: JER 09:17 → JERBED 13:41 → J4W 17:07
PROVIDERS: ADMIT Internal Medicine; ATTEND Internal Medicine
DX: G40.909 Epilepsy, unspecified, not intractable, without status epilepticus (principal); N17.9 Acute kidney failure, unspecified; E11.9 Type 2 diabetes mellitus without complications; Z79.84 Long term (current) use of oral hypoglycemic drugs; I11.0 Hypertensive heart disease with heart failure; I50.9 Heart failure, unspecified; K74.60 Unspecified cirrhosis of liver; D50.9 Iron deficiency anemia, unspecified; Z53.29 Procedure and treatment not carried out because of patient's decision for other reasons
CPT/HCPCS: 0241U-QW; 36415; 70450-TC; 80053; 81003; 82962; 83036; 83605; 83735; 84443; 84484; 85025; 87086; 93005; 93010; 99285-25; J1644

== ENCOUNTER 2022-10-14 04:18 | Day surgery (SDC) | payer OTHER, MEDICARE ==
[2022-10-11 10:02] VITALS: BMI 24.0
[~2022-10-14 04:18] MED LIST changes: -DEXAMETHASONE SOD PHOSPHATE 10 MG/1 ML VIAL IM ONE; +DEXAMETHASONE SOD PHOSPHATE 10 MG/1 ML VIAL IVPUSH ONE; +IOHEXOL 180 MG/1 ML ML IJ ONE; -LIDOCAINE HCL 1%, 10 MG/ML (20ML VIAL) INF ONE; +LIDOCAINE HCL 1%, 10 MG/ML (20ML VIAL) NR ONE
[2022-10-14] MEDS ORDERED: BUPIVACAINE HCL/PF 0.25% (2.5MG/ML) 10 ML VIAL ONE (07:19)
[2022-10-14] MEDS ORDERED: DEXAMETHASONE SOD PHOSPHATE 10 MG/1 ML VIAL ONE (07:19)
[2022-10-14] MEDS ORDERED: LIDOCAINE HCL/PF 1% SDV 5ML VIAL ONE (07:19)
[2022-10-14 10:07] VITALS: RESP 18
[2022-10-14] MEDS ORDERED: MIDAZOLAM HCL 2 MG/2 ML SINGLE DOSE VIAL ONE (11:50)
[2022-10-14] MEDS ORDERED: PROPOFOL 20 ML ONE (11:53)
[2022-10-14] MEDS ORDERED: LIDOCAINE HCL 1%, 10 MG/ML (20ML VIAL) NR ONE (11:59)
[2022-10-14] MEDS ORDERED: DEXAMETHASONE SOD PHOSPHATE 10 MG/1 ML VIAL IVPUSH ONE (12:00)
[2022-10-14] MEDS ORDERED: IOHEXOL 180 MG/1 ML ML IJ ONE (12:00)
[2022-10-14] MEDS ORDERED: BUPIVACAINE HCL/PF 0.25% (2.5MG/ML) 10 ML VIAL IJ ONE (12:00)
[2022-10-14] MEDS ORDERED: ceFAZolin SODIUM 1 GM VIAL IVPB ONE (12:02)
[2022-10-14 14:09] VITALS: TEMP 97.8
[2022-10-14 14:13] VITALS: BP 146/67; PULSE 61
== END 2022-10-14 13:05 | disposition home or self-care (01) ==
LOC: JASU-SURG 04:18
PROVIDERS: ATTEND Physical Medicine & Rehabilitation
PROC: 3E0R3BZ Introduction of Anesthetic Agent into Spinal Canal, Percutaneous Approach (ICD-10-PCS; 2022-10-14)
PROC: 3E0R33Z Introduction of Anti-inflammatory into Spinal Canal, Percutaneous Approach (ICD-10-PCS; principal; 2022-10-14 12:00)
DX: M54.12 Radiculopathy, cervical region (principal); M54.2 Cervicalgia
CPT/HCPCS: 82962; J1100

== ENCOUNTER 2022-10-30 16:30 | Inpatient (IN) | payer OTHER, MEDICARE ==
[2022-10-30 16:43] VITALS: BMI 25.7
[2022-10-30 18:44] LABS: BASO % 0.5 % (0-2.0); EOS % 1.5 % (0-4.5); HEMATOCRIT 26.4 % (32.4-45.2); HEMOGLOBIN 8.5 GM/dL (10.7-15.3); LYMPH % 22.4 % (8-40); MCH 29.7 pg (25.7-33.7); MCHC 32.2 g/dl (32.0-36.0); MEAN CELL VOLUME 92.3 fl (80-96); MEAN PLT VOLUME 7.3 fl (7.5-11.1); MONO % 18.1 % (3.8-10.2); NEUT % 57.5 % (42.8-82.8); PLATELET COUNT 401 10^3/uL (134-434); RBC 2.86 M/mm3 (3.60-5.2); RDW 15.1 % (11.6-15.6); WHITE BLOOD COUNT 12.2 K/mm3 (4.0-10.0)
[2022-10-30 19:05] LABS: ALBUMIN 2.8 g/dl (3.4-5.0); CALCIUM 9.1 mg/dL (8.5-10.1); MAGNESIUM 2.1 mg/dL (1.8-2.4)
[2022-10-30 19:06] LABS: BLOOD UREA NITROGEN 33.4 mg/dL (7-18)
[2022-10-30 19:08] LABS: CREATININE 1.6 mg/dL (0.55-1.3)
[2022-10-30 19:10] LABS: BILIRUBIN,TOTAL 0.4 mg/dL (0.2-1); TOT PROT 7.5 g/dl (6.4-8.2)
[2022-10-30] MEDS ORDERED: ACETAMINOPHEN 325 MG TABLET (FP) PO ONE (19:31)
[2022-10-30] MEDS ORDERED: ACETAMINOPHEN 325 MG TABLET (FP) ONE (20:13)
[2022-10-30 21:16] LABS: RETICULOCYTES 1.02 % (0.5-1.5)
[2022-10-30 21:48] LABS: ERYTHROCYTE SEDIMENTATION RATE 115 mm/hr (0-30)
[2022-10-30 22:46] LABS: ANISOCYTOSIS 1+; MACROCYTOSIS 0; TARGET CELLS 1+; TEAR DROP CELLS 1+
[2022-10-30] MEDS ORDERED: levETIRAcetam 500 MG TABLET (FP) PO ONE (22:48)
[2022-10-30] MEDS: ACETAMINOPHEN 325 MG TABLET (FP) PO SCH (23:08)
[2022-10-30] MEDS ORDERED: SODIUM CHLORIDE 1,000 ML IV SCH (23:15)
[2022-10-30 23:30] LABS: HEMATOCRIT 25.4 % (32.4-45.2); HEMOGLOBIN 8.3 GM/dL (10.7-15.3); MCHC 32.7 g/dl (32.0-36.0); MEAN CELL VOLUME 91.7 fl (80-96); MEAN PLT VOLUME 6.7 fl (7.5-11.1); PLATELET COUNT 359 10^3/uL (134-434); RBC 2.77 M/mm3 (3.60-5.2); RDW 14.7 % (11.6-15.6)
[2022-10-31] MEDS ORDERED: levETIRAcetam 500 MG TABLET (FP) PO ONE (01:30)
[2022-10-31] MEDS ORDERED: MELATONIN 5 MG TABLETS PO PRN (01:34)
[2022-10-31] MEDS: IRON POLYSACCHARIDES 150 MG CAPSULE PO SCH ×3 (01:46→21:59)
[2022-10-31] MEDS: ACETAMINOPHEN 325 MG TABLET (FP) PO SCH ×3 (06:32→22:00)
[2022-10-31 07:33] LABS: BASO % 0.6 % (0-2.0); EOS % 2.2 % (0-4.5); HEMOGLOBIN 8.4 GM/dL (10.7-15.3); INR 1.28 (0.83-1.09); LYMPH % 29.8 % (8-40); MCH 31.5 pg (25.7-33.7); MCHC 33.4 g/dl (32.0-36.0); MEAN CELL VOLUME 94.2 fl (80-96); MEAN PLT VOLUME 7.8 fl (7.5-11.1); MONO % 19.4 % (3.8-10.2); PLATELET COUNT 381 10^3/uL (134-434); PROTHROMBIN TIME (PATIENT) 14.8 SEC (9.7-13.0); RBC 2.66 M/mm3 (3.60-5.2); RDW 14.9 % (11.6-15.6); WHITE BLOOD COUNT 9.7 K/mm3 (4.0-10.0)
[2022-10-31 08:28] LABS: CALCIUM 8.8 mg/dL (8.5-10.1); MAGNESIUM 2.1 mg/dL (1.8-2.4)
[2022-10-31 08:30] LABS: BLOOD UREA NITROGEN 27.8 mg/dL (7-18)
[2022-10-31 08:31] LABS: ALBUMIN 2.6 g/dl (3.4-5.0)
[2022-10-31 08:32] LABS: CREATININE 1.4 mg/dL (0.55-1.3)
[2022-10-31 08:33] LABS: PHOSPHOROUS 3.3 mg/dL (2.5-4.9)
[2022-10-31 08:34] LABS: TOT PROT 6.8 g/dl (6.4-8.2)
[2022-10-31 08:35] LABS: BILIRUBIN,TOTAL 0.6 mg/dL (0.2-1)
[2022-10-31 11:38] VITALS: RESP 18
[2022-10-31] MEDS: HEPARIN NA (PORCINE) 5,000 UNITS/ML 1ML VIAL SQ SCH ×2 (11:45→21:59)
[2022-10-31] MEDS ORDERED: DEXTROSE 5%-0.45% SALINE 1,000 ML IV SCH (17:15)
[2022-10-31 18:22] LABS: EPI CELLS 18 /uL (0-25.1); HYALINE CASTS 0 /uL (0-3.1); URINE APPEARANCE CLEAR; URINE BACTERIA 44 /uL (0-1359); URINE BILIRUBIN NEGATIVE (NEGATIVE); URINE COLOR YELLOW; URINE GLUCOSE (UA) NEGATIVE (NEGATIVE); URINE KETONE NEGATIVE (NEGATIVE); URINE LEUK ESTERASE 1+ (NEGATIVE); URINE NITRITE NEGATIVE (NEGATIVE); URINE PROTEIN TRACE (NEGATIVE); URINE RBC 9 /uL (0-23.9); URINE WBC 17 /uL (0-25.8)
[2022-10-31] MEDS: levETIRAcetam 500 MG TABLET (FP) PO SCH (22:06)
[2022-11-01] MEDS ORDERED: MELATONIN 5 MG TABLETS PO PRN ×2 (00:07→00:29)
[2022-11-01] MEDS: ACETAMINOPHEN 325 MG TABLET (FP) PO SCH ×2 (06:46→15:19)
[2022-11-01 08:42] LABS: HEMATOCRIT 24.2 % (32.4-45.2); HEMOGLOBIN 8.1 GM/dL (10.7-15.3); MCH 31.7 pg (25.7-33.7); MCHC 33.5 g/dl (32.0-36.0); MEAN CELL VOLUME 94.4 fl (80-96); MEAN PLT VOLUME 8.2 fl (7.5-11.1); PLATELET COUNT 369 10^3/uL (134-434); RBC 2.56 M/mm3 (3.60-5.2); RDW 14.5 % (11.6-15.6); WHITE BLOOD COUNT 7.9 K/mm3 (4.0-10.0)
[2022-11-01 09:04] LABS: CALCIUM 8.7 mg/dL (8.5-10.1)
[2022-11-01 09:06] LABS: ALBUMIN 2.5 g/dl (3.4-5.0); BLOOD UREA NITROGEN 26.9 mg/dL (7-18)
[2022-11-01 09:07] LABS: PHOSPHOROUS 2.8 mg/dL (2.5-4.9)
[2022-11-01 09:08] LABS: BILIRUBIN,TOTAL 0.4 mg/dL (0.2-1); CREATININE 1.3 mg/dL (0.55-1.3); TOT PROT 6.8 g/dl (6.4-8.2)
[2022-11-01] MEDS: levETIRAcetam 500 MG TABLET (FP) PO SCH (09:34)
[2022-11-01] MEDS ORDERED: IRON POLYSACCHARIDES 150 MG CAPSULE PO SCH (10:00)
[2022-11-01] MEDS ORDERED: HEPARIN NA (PORCINE) 5,000 UNITS/ML 1ML VIAL SQ SCH (10:00)
[2022-11-01 10:35] VITALS: BP 112/65; PULSE 60
[2022-11-01 15:19] VITALS: TEMP 98
[2022-11-05 15:09] LABS: TOTAL PROTEIN, URINE 20.4 mg/dL (Not Estab.)
== END 2022-11-01 15:33 | disposition home or self-care (01) | DRG 312 ==
LOC: JER 16:30 → JERBED 19:47 → OBSVTOIN 22:41 → J4W 10-31 00:38 → J8W 11-01 00:11
PROVIDERS: ADMIT Internal Medicine; ATTEND Nurse Practitioner Family
DX: R55 Syncope and collapse (principal); N17.9 Acute kidney failure, unspecified; I50.32 Chronic diastolic (congestive) heart failure; I13.0 Hypertensive heart and chronic kidney disease with heart failure and stage 1 through stage 4 chronic kidney disease, or unspecified chronic kidney disease; D64.9 Anemia, unspecified; G40.909 Epilepsy, unspecified, not intractable, without status epilepticus; E11.649 Type 2 diabetes mellitus with hypoglycemia without coma; K74.60 Unspecified cirrhosis of liver; E88.09 Other disorders of plasma-protein metabolism, not elsewhere classified; Z79.84 Long term (current) use of oral hypoglycemic drugs; E11.22 Type 2 diabetes mellitus with diabetic chronic kidney disease; N18.9 Chronic kidney disease, unspecified; E86.1 Hypovolemia
CPT/HCPCS: 0241U-QW; 36415; 70450-TC; 71045-TC-FY; 72125-TC; 76705-TC; 80053; 80061; 80177; 81003; 82533; 82550; 82570; 82962; 83615; 83735; 84100; 84146; 84156; 84157; 84439; 84443; 84484; 85025; 85027; 85045; 85610; 85651; 87086; 93005; 93010; 93306-TC; 93880-TC; 99285-25; G0378; J1644

== ENCOUNTER 2023-02-13 12:40 | Observation (INO) | payer OTHER, MEDICARE ==
[2023-02-13 12:48] VITALS: BMI 24.0
[2023-02-13 14:07] LABS: HEMATOCRIT 28.8 % (32.4-45.2); HEMOGLOBIN 9.2 GM/dL (10.7-15.3); MEAN CELL VOLUME 93.7 fl (80-96); MEAN PLT VOLUME 8.7 fl (7.5-11.1); PLATELET COUNT 425 10^3/uL (134-434); RBC 3.07 M/mm3 (3.60-5.2); RDW 16.3 % (11.6-15.6); WHITE BLOOD COUNT 7.3 K/mm3 (4.0-10.0)
[2023-02-13] MEDS ORDERED: ASPIRIN 81 MG CHEWABLE TABLETS PO ONE (14:18)
[2023-02-13] MEDS ORDERED: SODIUM CHLORIDE 0.9% 500 ML INFUS.BAG IV ONE (14:19)
[2023-02-13 14:36] LABS: POTASSIUM 4.8 mmol/L (3.5-5.1)
[2023-02-13 14:38] LABS: BLOOD UREA NITROGEN 19.4 mg/dL (7-18); CALCIUM 9.6 mg/dL (8.5-10.1)
[2023-02-13 14:42] LABS: CREATININE 1.5 mg/dL (0.55-1.3)
[2023-02-13 14:44] LABS: BILIRUBIN,TOTAL 0.7 mg/dL (0.2-1); TOT PROT 8.8 g/dl (6.4-8.2)
[2023-02-13 15:48] LABS: ANISOCYTOSIS 1+; MACROCYTOSIS 1+; TARGET CELLS 1+
[2023-02-13] MEDS ORDERED: ACETAMINOPHEN 1000 MG/100 ML BAG IVPB ONE (15:55)
[2023-02-13] MEDS ORDERED: ACETAMINOPHEN INJECTION 100 ML IVPB ONE (16:02)
[2023-02-13] MEDS ORDERED: ASPIRIN 81 MG CHEWABLE TABLETS ONE (16:02)
[2023-02-13] MEDS ORDERED: LACTATED RINGERS SOLUTION 1,000 ML IV SCH (17:00)
[2023-02-13] MEDS ORDERED: amLODIPine BESYLATE 5 MG TABLET (FP) PO ONE (17:19)
[2023-02-13] MEDS ORDERED: SPIRONOLACTONE 25 MG TABLET PO ONE (17:22)
[2023-02-13] MEDS ORDERED: SPIRONOLACTONE 25 MG TABLET ONE (17:42)
[2023-02-13 18:32] LABS: PH,URINE 6.5 (5.0-8.0); URINE APPEARANCE CLEAR; URINE BILIRUBIN NEGATIVE (NEGATIVE); URINE COLOR YELLOW; URINE GLUCOSE (UA) NEGATIVE (NEGATIVE); URINE KETONE NEGATIVE (NEGATIVE); URINE LEUK ESTERASE NEGATIVE (NEGATIVE); URINE NITRITE NEGATIVE (NEGATIVE); URINE PROTEIN NEGATIVE (NEGATIVE); URINE UROBILINOGEN 0.2 mg/dL (0.2-1.0)
[2023-02-13] MEDS: CARVEDILOL 6.25 MG TABLET (FP) PO SCH (21:33)
[2023-02-13] MEDS: levETIRAcetam 500 MG TABLET (FP) PO SCH (21:33)
[2023-02-13] MEDS: FAMOTIDINE 20 MG TABLET PO SCH (21:33)
[2023-02-13] MEDS: IRON POLYSACCHARIDES 150 MG CAPSULE PO SCH (21:34)
[2023-02-13] MEDS: HEPARIN NA (PORCINE) 5,000 UNITS/ML 1ML VIAL SQ SCH (21:35)
[2023-02-13] MEDS: INSULIN SLIDING SCALE (NOVOLOG) 1 VIAL SQ SCH (21:40)
[2023-02-13] MEDS ORDERED: ATORVASTATIN CA 80 MG TABLET (FP) PO SCH (22:00)
[2023-02-13] MEDS: MELATONIN 5 MG TABLETS PO PRN (22:22)
[2023-02-14] MEDS: HEPARIN NA (PORCINE) 5,000 UNITS/ML 1ML VIAL SQ SCH ×3 (05:26→21:24)
[2023-02-14 06:37] LABS: HEMATOCRIT 25.2 % (32.4-45.2); HEMOGLOBIN 8.1 GM/dL (10.7-15.3); MCH 30.3 pg (25.7-33.7); MCHC 32.3 g/dl (32.0-36.0); MEAN CELL VOLUME 93.8 fl (80-96); MEAN PLT VOLUME 8.8 fl (7.5-11.1); PLATELET COUNT 398 10^3/uL (134-434); RBC 2.69 M/mm3 (3.60-5.2); RDW 16.2 % (11.6-15.6)
[2023-02-14] MEDS: INSULIN SLIDING SCALE (NOVOLOG) 1 VIAL SQ SCH ×4 (06:39→21:36)
[2023-02-14 07:04] LABS: POTASSIUM 4.6 mmol/L (3.5-5.1)
[2023-02-14 07:06] LABS: CALCIUM 9.3 mg/dL (8.5-10.1)
[2023-02-14 07:08] LABS: BLOOD UREA NITROGEN 21.8 mg/dL (7-18); MAGNESIUM 1.9 mg/dL (1.8-2.4)
[2023-02-14 07:10] LABS: CREATININE 1.3 mg/dL (0.55-1.3); PHOSPHOROUS 3.6 mg/dL (2.5-4.9)
[2023-02-14 07:11] LABS: BILIRUBIN,TOTAL 0.5 mg/dL (0.2-1)
[2023-02-14 07:19] LABS: ALBUMIN 2.4 g/dl (3.4-5.0)
[2023-02-14 09:07] LABS: ANISOCYTOSIS 0; MACROCYTOSIS 1+
[2023-02-14] MEDS ORDERED: LOSARTAN POTASSIUM 50 MG TABLET PO ONE (09:14)
[2023-02-14] MEDS ORDERED: ASPIRIN 81 MG CHEWABLE TABLETS PO SCH (10:00)
[2023-02-14] MEDS: levETIRAcetam 500 MG TABLET (FP) PO SCH ×2 (10:06→21:24)
[2023-02-14] MEDS: FUROSEMIDE 40 MG TABLET (FP) PO SCH (10:06)
[2023-02-14] MEDS: CARVEDILOL 6.25 MG TABLET (FP) PO SCH ×2 (10:06→21:24)
[2023-02-14] MEDS: SPIRONOLACTONE 25 MG TABLET PO SCH (10:06)
[2023-02-14] MEDS: FOLIC ACID 1 MG TABLET (FP) PO SCH (10:06)
[2023-02-14] MEDS: IRON POLYSACCHARIDES 150 MG CAPSULE PO SCH ×2 (10:07→21:35)
[2023-02-14] MEDS ORDERED: amLODIPine BESYLATE 5 MG TABLET (FP) PO ONE (10:29)
[2023-02-14 10:48] LABS: RETICULOCYTES 1.83 % (0.5-1.5)
[2023-02-14] MEDS ORDERED: INSULIN SLIDING SCALE (NOVOLOG) 1 VIAL SQ SCH (11:00)
[2023-02-14] MEDS: MELATONIN 5 MG TABLETS PO PRN (21:24)
[2023-02-14] MEDS: FAMOTIDINE 20 MG TABLET PO SCH (21:24)
[2023-02-15 05:55] VITALS: TEMP 98.5
[2023-02-15] MEDS: HEPARIN NA (PORCINE) 5,000 UNITS/ML 1ML VIAL SQ SCH (05:56)
[2023-02-15] MEDS: INSULIN SLIDING SCALE (NOVOLOG) 1 VIAL SQ SCH (06:43)
[2023-02-15 09:55] VITALS: BP 150/70; PULSE 60; RESP 16
[2023-02-15] MEDS: CARVEDILOL 6.25 MG TABLET (FP) PO SCH (09:56)
[2023-02-15] MEDS: FOLIC ACID 1 MG TABLET (FP) PO SCH (09:57)
[2023-02-15] MEDS: SPIRONOLACTONE 25 MG TABLET PO SCH (09:57)
[2023-02-15] MEDS: FUROSEMIDE 40 MG TABLET (FP) PO SCH (09:57)
[2023-02-15] MEDS: levETIRAcetam 500 MG TABLET (FP) PO SCH (09:57)
[2023-02-15] MEDS: IRON POLYSACCHARIDES 150 MG CAPSULE PO SCH (09:57)
[2023-02-15] MEDS ORDERED: LOSARTAN POTASSIUM 50 MG TABLET PO SCH (10:00)
[2023-02-17 14:08] LABS: INSULIN 20.3 uIU/mL (2.6-24.9)
== END 2023-02-15 11:00 | disposition home or self-care (01) ==
LOC: JER 12:40 → JERBED 15:26 → J4S 18:42
PROVIDERS: ADMIT Internal Medicine; ATTEND Internal Medicine
PROC: 3E033NZ Introduction of Analgesics, Hypnotics, Sedatives into Peripheral Vein, Percutaneous Approach (ICD-10-PCS; principal; 2023-02-13)
PROC: 3E023GC Introduction of Other Therapeutic Substance into Muscle, Percutaneous Approach (ICD-10-PCS; 2023-02-13)
PROC: 3E0337Z Introduction of Electrolytic and Water Balance Substance into Peripheral Vein, Percutaneous Approach (ICD-10-PCS; 2023-02-13)
DX: I16.0 Hypertensive urgency (principal); N17.9 Acute kidney failure, unspecified; G40.909 Epilepsy, unspecified, not intractable, without status epilepticus; D64.9 Anemia, unspecified; E11.9 Type 2 diabetes mellitus without complications; Z86.19 Personal history of other infectious and parasitic diseases; K74.60 Unspecified cirrhosis of liver; R18.8 Other ascites; I85.00 Esophageal varices without bleeding; Z87.891 Personal history of nicotine dependence; Z88.0 Allergy status to penicillin; Z88.5 Allergy status to narcotic agent
CPT/HCPCS: 36415; 70450-TC; 71045-TC-FY; 72170-TC-FY; 80053; 80061; 81003; 82550; 82728; 82962; 83525; 83540; 83550; 83735; 84100; 84443; 84466; 84484; 85025; 85045; 93005; 93010; 96365; 96372; 96375; 97116-GP; 99285-25; G0378; J1644